=== PATIENT | female | born 1930 | race Caucasian/White ===

== ENCOUNTER 2017-10-19 11:11 | Inpatient (IN) | payer OTHER, MEDICAID ==
[2017-10-19] MEDS: PERCOCET 5MG/325MG TAB PO ×3 (12:09→23:39)
[2017-10-19] MEDS: MORPHINE 2 MG/ML 1ML SYRINGE IV ×4 (13:24→23:15)
[2017-10-19] MEDS: ONDANSETRON 4MG/2ML VIAL (J2405) IV (13:24)
[2017-10-19] MEDS: NS 1,000 ML IV (13:24)
[2017-10-19 13:41] LABS: HEMATOCRIT 50.1 % (36.0-47.0); HEMOGLOBIN 16.9 g/dl (12.0-16.0); MEAN CORPUSCULAR HEMOGLOBIN 31.3 pg (27.0-33.0); MEAN CORPUSCULAR HGB CONC 33.7 g/dl (32.0-36.5); MEAN CORPUSCULAR VOLUME 92.8 fl (80.0-96.0); PLATELET COUNT, AUTOMATED 201 10^3/uL (150-450); RED CELL DISTRIBUTION WIDTH 12.1 % (11.5-14.5); WHITE BLOOD COUNT 14.5 10^3/uL (4.0-10.0)
[2017-10-19 13:54] LABS: INR 1.02; PROTHROMBIN TIME 13.5 SECONDS (12.4-14.5)
[2017-10-19 14:10] LABS: ALBUMIN 4.5 GM/DL (3.2-5.2); ALBUMIN/GLOBULIN RATIO 1.45 (1.00-1.93); ALKALINE PHOSPHATASE 69 U/L (45-117); ALT/SGPT 23 U/L (12-78); ANION GAP 7 MEQ/L (8-16); AST/SGOT 23 U/L (7-37); BILIRUBIN,TOTAL 0.5 MG/DL (0.2-1.0); BLOOD UREA NITROGEN 14 MG/DL (7-18); CALCIUM LEVEL 10.2 MG/DL (8.8-10.2); CARBON DIOXIDE LEVEL 30 MEQ/L (21-32); CHLORIDE LEVEL 103 MEQ/L (98-107); CREATININE FOR GFR 0.82 MG/DL (0.55-1.02); GLOMERULAR FILTRATION RATE > 60.0 (>32); GLUCOSE, FASTING 114 MG/DL (70-100); POTASSIUM SERUM 3.9 MEQ/L (3.5-5.1); SODIUM LEVEL 140 MEQ/L (136-145); TOTAL PROTEIN 7.6 GM/DL (6.4-8.2)
[2017-10-19] MEDS ORDERED: BISACODYL 10 MG SUPP PR (15:00)
[2017-10-19] MEDS ORDERED: ONDANSETRON 4MG/2ML VIAL (J2405) IV (15:00)
[2017-10-19] MEDS: D5W/0.9% SODIUM CHLORIDE 1,000 ML IV (16:15)
[2017-10-19] MEDS: SENOKOT S TAB PO (21:58)
[2017-10-20] MEDS: MORPHINE 2 MG/ML 1ML SYRINGE IV (01:17)
[2017-10-20] MEDS: D5W/0.9% SODIUM CHLORIDE 1,000 ML IV (03:40)
[2017-10-20] MEDS: PERCOCET 5MG/325MG TAB PO ×4 (03:40→23:56)
[2017-10-20] MEDS: CLINDAMYCIN 600 MG in APPROPRIATE DILUENT 1 EA IV (07:30)
[2017-10-20] MEDS: SENOKOT S TAB PO ×2 (08:00→21:00)
[2017-10-20] MEDS ORDERED: CLINDAMYCIN 600 MG in APPROPRIATE DILUENT 1 EA IV (08:00)
[2017-10-20 08:36] LABS: HEMATOCRIT 44.4 % (36.0-47.0); MEAN CORPUSCULAR HEMOGLOBIN 31.1 pg (27.0-33.0); MEAN CORPUSCULAR HGB CONC 32.9 g/dl (32.0-36.5); MEAN CORPUSCULAR VOLUME 94.7 fl (80.0-96.0); PLATELET COUNT, AUTOMATED 153 10^3/uL (150-450); RED BLOOD COUNT 4.69 10^6/uL (4.00-5.40); RED CELL DISTRIBUTION WIDTH 12.4 % (11.5-14.5); WHITE BLOOD COUNT 9.2 10^3/uL (4.0-10.0)
[2017-10-20 08:54] LABS: HEMOGLOBIN 14.6 g/dl (12.0-16.0)
[2017-10-20 08:56] LABS: ANION GAP 5 MEQ/L (8-16); BLOOD UREA NITROGEN 12 MG/DL (7-18); CALCIUM LEVEL 8.2 MG/DL (8.8-10.2); CARBON DIOXIDE LEVEL 30 MEQ/L (21-32); CHLORIDE LEVEL 106 MEQ/L (98-107); CREATININE FOR GFR 0.72 MG/DL (0.55-1.02); GLOMERULAR FILTRATION RATE > 60.0 (>32); GLUCOSE, FASTING 146 MG/DL (70-100); MAGNESIUM LEVEL 1.5 MG/DL (1.8-2.4); SODIUM LEVEL 141 MEQ/L (136-145)
[2017-10-20] MEDS: MAG SULF 1GM/100ML (MAG RUN) 1 GM in APPROPRIATE DILUENT 1 EA IV ×3 (10:25→12:24)
[2017-10-20] MEDS ORDERED: ONDANSETRON 4MG/2ML VIAL (J2405) As Ordered (15:29)
[2017-10-20] MEDS ORDERED: PROPOFOL 200 MG/20 ML VIAL As Ordered (15:29)
[2017-10-20] MEDS ORDERED: KETOROLAC 60 MG/2 ML VIAL (J1885) As Ordered (15:29)
[2017-10-20] MEDS ORDERED: dexameTHASONE 4 MG/ML 1ML VIAL (J1100) As Ordered (15:29)
[2017-10-20] MEDS ORDERED: fentaNYL 100 MCG/2 ML INJECTION (J3010) As Ordered ×2 (15:29→21:15)
[2017-10-20] MEDS ORDERED: MIDAZOLAM INJ 2 MG/2 ML VIAL (J2250) As Ordered (15:29)
[2017-10-20] MEDS ORDERED: LIDOCAINE 2% INJ 100 MG/5 ML SDV (FOR ANES.) As Ordered (15:29)
[2017-10-20] MEDS ORDERED: PHENYLEPHRINE INJ 10MG/ML VIAL (J2370) As Ordered (15:30)
[2017-10-20] MEDS ORDERED: PHENYLephrine HCL 500 MCG/5 ML (100MCG/ML) SYRINGE (J2370) As Ordered ×2 (15:30→19:34)
[2017-10-20] MEDS: ceFAZolin 2 GM/D5W 50 ML IV BAG (J0690 PER 500MG) As Ordered (16:50)
[2017-10-20] MEDS: ceFAZolin 1GM INJ (J0690 PER 500MG) As Ordered (17:01)
[2017-10-20] MEDS: EPINEPHrine INJ 1 MG/ML 1ML AMP As Ordered (17:33)
[2017-10-20] MEDS: LR 1,000 ML IV ×2 (20:52→23:57)
[2017-10-20] MEDS: fentaNYL 100 MCG/2 ML INJECTION (J3010) IV ×3 (21:15→21:25)
[2017-10-20] MEDS ORDERED: FLEET ENEMA PR (21:30)
[2017-10-20] MEDS ORDERED: ONDANSETRON 4MG/2ML VIAL (J2405) IV (21:30)
[2017-10-20] MEDS ORDERED: PERCOCET 5MG/325MG TAB PO (21:30)
[2017-10-21] MEDS: PERCOCET 5MG/325MG TAB PO ×4 (03:51→21:32)
[2017-10-21 06:50] LABS: MEAN CORPUSCULAR HEMOGLOBIN 31.6 pg (27.0-33.0); MEAN CORPUSCULAR HGB CONC 33.2 g/dl (32.0-36.5); MEAN CORPUSCULAR VOLUME 95.1 fl (80.0-96.0); PLATELET COUNT, AUTOMATED 120 10^3/uL (150-450); RED BLOOD COUNT 3.89 10^6/uL (4.00-5.40); RED CELL DISTRIBUTION WIDTH 12.2 % (11.5-14.5); WHITE BLOOD COUNT 10.7 10^3/uL (4.0-10.0)
[2017-10-21 06:53] LABS: HEMOGLOBIN 12.3 g/dl (12.0-16.0)
[2017-10-21 07:15] LABS: ANION GAP 4 MEQ/L (8-16); BLOOD UREA NITROGEN 10 MG/DL (7-18); CARBON DIOXIDE LEVEL 30 MEQ/L (21-32); CHLORIDE LEVEL 105 MEQ/L (98-107); GLOMERULAR FILTRATION RATE > 60.0 (>32); GLUCOSE, FASTING 145 MG/DL (70-100); MAGNESIUM LEVEL 1.9 MG/DL (1.8-2.4); POTASSIUM SERUM 4.1 MEQ/L (3.5-5.1); SODIUM LEVEL 139 MEQ/L (136-145)
[2017-10-21] MEDS: LR 1,000 ML IV (08:37)
[2017-10-21] MEDS: MIRALAX *UNIT DOSE* 17GM PACKET PO (09:00)
[2017-10-21] MEDS: ENOXAPARIN 40 MG/0.4 ML SYRINGE (J1650) SC (09:18)
[2017-10-21] MEDS: MOM 30ML SUSPENSION UDC PO (09:18)
[2017-10-21] MEDS: SENOKOT S TAB PO ×2 (09:18→21:31)
[2017-10-21] MEDS: NS 1,000 ML IV (18:43)
[2017-10-22] MEDS: PERCOCET 5MG/325MG TAB PO ×3 (03:56→17:24)
[2017-10-22 07:07] LABS: HEMATOCRIT 31.3 % (36.0-47.0); MEAN CORPUSCULAR HEMOGLOBIN 31.1 pg (27.0-33.0); MEAN CORPUSCULAR HGB CONC 32.3 g/dl (32.0-36.5); MEAN CORPUSCULAR VOLUME 96.3 fl (80.0-96.0); PLATELET COUNT, AUTOMATED 122 10^3/uL (150-450); RED BLOOD COUNT 3.25 10^6/uL (4.00-5.40); RED CELL DISTRIBUTION WIDTH 12.3 % (11.5-14.5); WHITE BLOOD COUNT 8.9 10^3/uL (4.0-10.0)
[2017-10-22 07:09] LABS: HEMOGLOBIN 10.1 g/dl (12.0-16.0)
[2017-10-22 07:22] LABS: ANION GAP 3 MEQ/L (8-16); BLOOD UREA NITROGEN 11 MG/DL (7-18); CARBON DIOXIDE LEVEL 32 MEQ/L (21-32); CHLORIDE LEVEL 104 MEQ/L (98-107); CREATININE FOR GFR 0.57 MG/DL (0.55-1.02); GLOMERULAR FILTRATION RATE > 60.0 (>32); GLUCOSE, FASTING 108 MG/DL (70-100); MAGNESIUM LEVEL 1.7 MG/DL (1.8-2.4); POTASSIUM SERUM 3.9 MEQ/L (3.5-5.1); SODIUM LEVEL 139 MEQ/L (136-145)
[2017-10-22] MEDS: SENOKOT S TAB PO ×2 (08:33→20:58)
[2017-10-22] MEDS: MIRALAX *UNIT DOSE* 17GM PACKET PO (08:33)
[2017-10-22] MEDS: MOM 30ML SUSPENSION UDC PO (08:33)
[2017-10-22] MEDS: MAG SULF 1GM/100ML (MAG RUN) 1 GM in APPROPRIATE DILUENT 1 EA IV (08:33)
[2017-10-22] MEDS: TAMSULOSIN 0.4 MG CAP PO (12:29)
[2017-10-22] MEDS: ENOXAPARIN 40 MG/0.4 ML SYRINGE (J1650) SC (12:30)
[2017-10-23] MEDS: PERCOCET 5MG/325MG TAB PO ×3 (02:59→21:53)
[2017-10-23 05:56] LABS: HEMATOCRIT 28.4 % (36.0-47.0); HEMOGLOBIN 9.2 g/dl (12.0-16.0); MEAN CORPUSCULAR HEMOGLOBIN 31.1 pg (27.0-33.0); MEAN CORPUSCULAR HGB CONC 32.4 g/dl (32.0-36.5); MEAN CORPUSCULAR VOLUME 95.9 fl (80.0-96.0); PLATELET COUNT, AUTOMATED 141 10^3/uL (150-450); RED BLOOD COUNT 2.96 10^6/uL (4.00-5.40); RED CELL DISTRIBUTION WIDTH 12.3 % (11.5-14.5); WHITE BLOOD COUNT 7.6 10^3/uL (4.0-10.0)
[2017-10-23 06:20] LABS: ANION GAP 6 MEQ/L (8-16); BLOOD UREA NITROGEN 11 MG/DL (7-18); CALCIUM LEVEL 7.8 MG/DL (8.8-10.2); CARBON DIOXIDE LEVEL 30 MEQ/L (21-32); CHLORIDE LEVEL 103 MEQ/L (98-107); CREATININE FOR GFR 0.49 MG/DL (0.55-1.02); GLOMERULAR FILTRATION RATE > 60.0 (>32); GLUCOSE, FASTING 103 MG/DL (70-100); POTASSIUM SERUM 3.8 MEQ/L (3.5-5.1); SODIUM LEVEL 139 MEQ/L (136-145)
[2017-10-23] MEDS: TAMSULOSIN 0.4 MG CAP PO (09:16)
[2017-10-23] MEDS: MIRALAX *UNIT DOSE* 17GM PACKET PO (09:16)
[2017-10-23] MEDS: SENOKOT S TAB PO ×2 (09:16→19:07)
[2017-10-23] MEDS: MOM 30ML SUSPENSION UDC PO (09:16)
[2017-10-23] MEDS: ENOXAPARIN 40 MG/0.4 ML SYRINGE (J1650) SC (09:17)
[2017-10-24 05:57] LABS: HEMATOCRIT 28.9 % (36.0-47.0); HEMOGLOBIN 9.5 g/dl (12.0-16.0); MEAN CORPUSCULAR HEMOGLOBIN 31.5 pg (27.0-33.0); MEAN CORPUSCULAR HGB CONC 32.9 g/dl (32.0-36.5); MEAN CORPUSCULAR VOLUME 95.7 fl (80.0-96.0); PLATELET COUNT, AUTOMATED 170 10^3/uL (150-450); RED BLOOD COUNT 3.02 10^6/uL (4.00-5.40); RED CELL DISTRIBUTION WIDTH 12.4 % (11.5-14.5); WHITE BLOOD COUNT 6.7 10^3/uL (4.0-10.0)
[2017-10-24 06:11] LABS: ANION GAP 5 MEQ/L (8-16); BLOOD UREA NITROGEN 12 MG/DL (7-18); CALCIUM LEVEL 8.1 MG/DL (8.8-10.2); CARBON DIOXIDE LEVEL 33 MEQ/L (21-32); CHLORIDE LEVEL 105 MEQ/L (98-107); CREATININE FOR GFR 0.51 MG/DL (0.55-1.02); GLOMERULAR FILTRATION RATE > 60.0 (>32); GLUCOSE, FASTING 105 MG/DL (70-100); POTASSIUM SERUM 3.7 MEQ/L (3.5-5.1); SODIUM LEVEL 143 MEQ/L (136-145)
[2017-10-24] MEDS: MOM 30ML SUSPENSION UDC PO (08:24)
[2017-10-24] MEDS: MIRALAX *UNIT DOSE* 17GM PACKET PO (08:25)
[2017-10-24] MEDS: TAMSULOSIN 0.4 MG CAP PO (08:30)
[2017-10-24] MEDS: SENOKOT S TAB PO ×2 (08:30→21:00)
[2017-10-24] MEDS: PERCOCET 5MG/325MG TAB PO ×3 (08:30→20:20)
[2017-10-24] MEDS: ENOXAPARIN 40 MG/0.4 ML SYRINGE (J1650) SC (08:31)
[2017-10-24] MEDS: guaiFENesin ER 600 MG TAB PO ×2 (09:00→20:18)
[2017-10-25] MEDS: PERCOCET 5MG/325MG TAB PO ×3 (05:25→16:57)
[2017-10-25 08:31] LABS: HEMATOCRIT 29.5 % (36.0-47.0); HEMOGLOBIN 9.9 g/dl (12.0-16.0); MEAN CORPUSCULAR HEMOGLOBIN 31.4 pg (27.0-33.0); MEAN CORPUSCULAR HGB CONC 33.6 g/dl (32.0-36.5); MEAN CORPUSCULAR VOLUME 93.7 fl (80.0-96.0); PLATELET COUNT, AUTOMATED 216 10^3/uL (150-450); RED BLOOD COUNT 3.15 10^6/uL (4.00-5.40); RED CELL DISTRIBUTION WIDTH 12.1 % (11.5-14.5); WHITE BLOOD COUNT 5.8 10^3/uL (4.0-10.0)
[2017-10-25 08:45] LABS: ANION GAP 7 MEQ/L (8-16); BLOOD UREA NITROGEN 9 MG/DL (7-18); CALCIUM LEVEL 8.2 MG/DL (8.8-10.2); CARBON DIOXIDE LEVEL 31 MEQ/L (21-32); CHLORIDE LEVEL 102 MEQ/L (98-107); CREATININE FOR GFR 0.37 MG/DL (0.55-1.30); GLOMERULAR FILTRATION RATE > 60.0 (>32); GLUCOSE, FASTING 96 MG/DL (70-100); MAGNESIUM LEVEL 1.8 MG/DL (1.8-2.4); POTASSIUM SERUM 3.7 MEQ/L (3.5-5.1); SODIUM LEVEL 140 MEQ/L (136-145)
[2017-10-25] MEDS: MOM 30ML SUSPENSION UDC PO (09:41)
[2017-10-25] MEDS: ENOXAPARIN 40 MG/0.4 ML SYRINGE (J1650) SC (09:41)
[2017-10-25] MEDS: SENOKOT S TAB PO ×2 (09:42→20:14)
[2017-10-25] MEDS: guaiFENesin ER 600 MG TAB PO ×2 (09:42→20:14)
[2017-10-25] MEDS: TAMSULOSIN 0.4 MG CAP PO (09:42)
[2017-10-25] MEDS: MIRALAX *UNIT DOSE* 17GM PACKET PO (09:42)
[2017-10-26 07:03] LABS: HEMATOCRIT 30.7 % (36.0-47.0); HEMOGLOBIN 10.2 g/dl (12.0-16.0); MEAN CORPUSCULAR HEMOGLOBIN 31.7 pg (27.0-33.0); MEAN CORPUSCULAR HGB CONC 33.2 g/dl (32.0-36.5); MEAN CORPUSCULAR VOLUME 95.3 fl (80.0-96.0); PLATELET COUNT, AUTOMATED 237 10^3/uL (150-450); RED BLOOD COUNT 3.22 10^6/uL (4.00-5.40); RED CELL DISTRIBUTION WIDTH 12.3 % (11.5-14.5); WHITE BLOOD COUNT 5.8 10^3/uL (4.0-10.0)
[2017-10-26 07:15] LABS: ANION GAP 5 MEQ/L (8-16); BLOOD UREA NITROGEN 7 MG/DL (7-18); CALCIUM LEVEL 8.4 MG/DL (8.8-10.2); CARBON DIOXIDE LEVEL 33 MEQ/L (21-32); CHLORIDE LEVEL 102 MEQ/L (98-107); CREATININE FOR GFR 0.46 MG/DL (0.55-1.30); GLOMERULAR FILTRATION RATE > 60.0 (>32); GLUCOSE, FASTING 102 MG/DL (70-100); MAGNESIUM LEVEL 1.8 MG/DL (1.8-2.4); POTASSIUM SERUM 3.9 MEQ/L (3.5-5.1); SODIUM LEVEL 140 MEQ/L (136-145)
[2017-10-26] MEDS: PERCOCET 5MG/325MG TAB PO ×2 (08:10→13:50)
[2017-10-26] MEDS: MOM 30ML SUSPENSION UDC PO (09:00)
[2017-10-26] MEDS: MIRALAX *UNIT DOSE* 17GM PACKET PO (09:00)
[2017-10-26] MEDS: SENOKOT S TAB PO ×2 (09:00→20:44)
[2017-10-26] MEDS: guaiFENesin ER 600 MG TAB PO ×2 (09:35→20:44)
[2017-10-26] MEDS: TAMSULOSIN 0.4 MG CAP PO (09:35)
[2017-10-26] MEDS: ENOXAPARIN 40 MG/0.4 ML SYRINGE (J1650) SC (09:36)
[2017-10-27] MEDS: PERCOCET 5MG/325MG TAB PO ×3 (03:22→17:49)
[2017-10-27 06:48] LABS: HEMATOCRIT 30.8 % (36.0-47.0); HEMOGLOBIN 10.2 g/dl (12.0-16.0); MEAN CORPUSCULAR HEMOGLOBIN 31.1 pg (27.0-33.0); MEAN CORPUSCULAR HGB CONC 33.1 g/dl (32.0-36.5); MEAN CORPUSCULAR VOLUME 93.9 fl (80.0-96.0); PLATELET COUNT, AUTOMATED 300 10^3/uL (150-450); RED BLOOD COUNT 3.28 10^6/uL (4.00-5.40); RED CELL DISTRIBUTION WIDTH 12.4 % (11.5-14.5); WHITE BLOOD COUNT 7.2 10^3/uL (4.0-10.0)
[2017-10-27 07:10] LABS: ANION GAP 4 MEQ/L (8-16); BLOOD UREA NITROGEN 8 MG/DL (7-18); CALCIUM LEVEL 8.6 MG/DL (8.8-10.2); CARBON DIOXIDE LEVEL 33 MEQ/L (21-32); CHLORIDE LEVEL 103 MEQ/L (98-107); GLOMERULAR FILTRATION RATE > 60.0 (>32); GLUCOSE, FASTING 100 MG/DL (70-100); MAGNESIUM LEVEL 1.8 MG/DL (1.8-2.4); SODIUM LEVEL 140 MEQ/L (136-145)
[2017-10-27] MEDS: SENOKOT S TAB PO ×2 (09:00→19:58)
[2017-10-27] MEDS: MIRALAX *UNIT DOSE* 17GM PACKET PO (09:00)
[2017-10-27] MEDS: MOM 30ML SUSPENSION UDC PO (09:00)
[2017-10-27] MEDS: TAMSULOSIN 0.4 MG CAP PO (09:03)
[2017-10-27] MEDS: guaiFENesin ER 600 MG TAB PO ×2 (09:03→19:58)
[2017-10-27] MEDS: ENOXAPARIN 40 MG/0.4 ML SYRINGE (J1650) SC (09:04)
[2017-10-28] MEDS: PERCOCET 5MG/325MG TAB PO ×3 (01:04→11:59)
[2017-10-28] MEDS: ENOXAPARIN 40 MG/0.4 ML SYRINGE (J1650) SC (08:06)
[2017-10-28] MEDS: TAMSULOSIN 0.4 MG CAP PO (08:07)
[2017-10-28] MEDS: guaiFENesin ER 600 MG TAB PO (08:07)
[2017-10-28] MEDS: MIRALAX *UNIT DOSE* 17GM PACKET PO (08:08)
[2017-10-28] MEDS: MOM 30ML SUSPENSION UDC PO (08:08)
[2017-10-28] MEDS: SENOKOT S TAB PO (08:08)
== END 2017-10-28 12:18 | DRG 470 ==
LOC: M MS5PR 10-20 → M ED 11:11 → M ED INP 14:15
PROC: 0SRR0J9 Replacement of Right Hip Joint, Femoral Surface with Synthetic Substitute, Cemented, Open Approach (ICD-10-PCS; principal; 2017-10-20 16:04)
PROC: 0QQ60ZZ Repair Right Upper Femur, Open Approach (ICD-10-PCS; 2017-10-20 16:04)
DX: S72.011A Unspecified intracapsular fracture of right femur, initial encounter for closed fracture (principal); W18.39XA Other fall on same level, initial encounter; Y92.512 Supermarket, store or market as the place of occurrence of the external cause; S72.121A Displaced fracture of lesser trochanter of right femur, initial encounter for closed fracture; F17.210 Nicotine dependence, cigarettes, uncomplicated; E83.42 Hypomagnesemia; R33.9 Retention of urine, unspecified; Y99.8 Other external cause status; Z79.82 Long term (current) use of aspirin; Z88.0 Allergy status to penicillin

== ENCOUNTER → 2017-11-09 | Outpatient (REF) ==
[2017-11-09 11:24] LABS: HEMATOCRIT 37.1 % (36.0-47.0); HEMOGLOBIN 11.7 g/dl (12.0-16.0); MEAN CORPUSCULAR HEMOGLOBIN 30.9 pg (27.0-33.0); MEAN CORPUSCULAR HGB CONC 31.5 g/dl (32.0-36.5); MEAN CORPUSCULAR VOLUME 97.9 fl (80.0-96.0); PLATELET COUNT, AUTOMATED 419 10^3/uL (150-450); RED BLOOD COUNT 3.79 10^6/uL (4.00-5.40); RED CELL DISTRIBUTION WIDTH 13.6 % (11.5-14.5); WHITE BLOOD COUNT 4.9 10^3/uL (4.0-10.0)
[2017-11-09 11:39] LABS: ANION GAP 8 MEQ/L (8-16); BLOOD UREA NITROGEN 13 MG/DL (7-18); CALCIUM LEVEL 9.5 MG/DL (8.8-10.2); CARBON DIOXIDE LEVEL 31 MEQ/L (21-32); CHLORIDE LEVEL 102 MEQ/L (98-107); CREATININE FOR GFR 0.66 MG/DL (0.55-1.30); GLOMERULAR FILTRATION RATE > 60.0 (>32); GLUCOSE, FASTING 89 MG/DL (70-100); POTASSIUM SERUM 4.6 MEQ/L (3.5-5.1); SODIUM LEVEL 141 MEQ/L (136-145)
== END ==
DX: D62 Acute posthemorrhagic anemia (principal)

== ENCOUNTER 2020-01-08 13:11 | Inpatient (IN) | payer MEDICAID, MEDICARE, OTHER ==
[~2020-01-08] VITALS: Ht 160 cm; Wt 62.0 kg
[2020-01-08] VITALS (18 sets, daily range): BP systolic 90–131; BP diastolic 51–86
[~2020-01-08 13:11] MED LIST: ASPI-255 PO; CALC1CHW PO; FLOM0.4C39 PO; LOVE1INJ SC
[2020-01-08] MEDS ORDERED: BIMA01SOL OS (13:31)
[2020-01-08 13:49] LABS: BASO % 0.2 % (0.0-1.0); EOS % 0.1 % (0.0-3.0); HEMATOCRIT 48.3 % (36.0-47.0); HEMOGLOBIN 15.6 g/dl (12.0-15.5); LYMPH # 0.7 10^3/uL (1.5-5.0); LYMPH % 4.9 % (24.0-44.0); MEAN CORPUSCULAR HGB CONC 32.3 g/dl (32.0-36.5); MEAN CORPUSCULAR VOLUME 95.8 fl (80.0-96.0); MONO # 1.1 10^3/uL (0.0-0.8); MONO % 7.3 % (0.0-5.0); NEUTROPHILS # 13.1 10^3/uL (1.5-8.5); PLATELET COUNT, AUTOMATED 263 10^3/uL (150-450); RED BLOOD COUNT 5.04 10^6/uL (4.00-5.40)
[2020-01-08] MEDS: METOPROLOL 5 MG/5 ML VIAL IV SCH ×3 (13:56→14:15)
[2020-01-08 14:00] LABS: INR 1.17; PROTHROMBIN TIME 14.6 SECONDS (11.8-14.0)
[2020-01-08 14:18] LABS: ALBUMIN 3.9 GM/DL (3.2-5.2); ALT/SGPT 21 U/L (12-78); BILIRUBIN,DIRECT 0.2 MG/DL (0.0-0.2); BILIRUBIN,TOTAL 0.6 MG/DL (0.2-1.0); BLOOD UREA NITROGEN 15 MG/DL (7-18); CALCIUM LEVEL 9.7 MG/DL (8.8-10.2); CARBON DIOXIDE LEVEL 25 MEQ/L (21-32); CHLORIDE LEVEL 103 MEQ/L (98-107); CK-MB VALUE MASS 4.5 NG/ML (<3.6); CPK CREATINE PHOSPHOKINASE 113 U/L (26-192); CREATININE FOR GFR 1.22 MG/DL (0.55-1.30); FREE T4 1.45 NG/DL (0.76-1.46); GLOMERULAR FILTRATION RATE 44.3 (>32); GLUCOSE, FASTING 175 MG/DL (70-100); LIPASE 56 U/L (73-393); MAGNESIUM LEVEL 1.6 MG/DL (1.8-2.4); MB/CK RELATIVE INDEX 3.98 (< OR =4); PHOSPHORUS LEVEL 4.2 MG/DL (2.5-4.9); POTASSIUM SERUM 4.3 MEQ/L (3.5-5.1); SODIUM LEVEL 138 MEQ/L (136-145); TOTAL PROTEIN 7.4 GM/DL (6.4-8.2); TROPONIN I < 0.02 NG/ML (< 0.10)
[2020-01-08] MEDS ORDERED: VITMTA PO (14:40)
[2020-01-08] MEDS ORDERED: CALC500C14 PO (14:40)
[2020-01-08] MEDS ORDERED: LevoFLOXacin IV 750 MG in IV 1 EA IV ONE (15:00)
[2020-01-08] MEDS ORDERED: METOPROLOL TART 25 MG TABLET PO ONE (15:00)
[2020-01-08] MEDS ORDERED: MAGNESIUM OXIDE 400 MG TAB (MAG-OX) PO ONE (15:00)
--- NOTE | 2020-01-08 15:19 | REP ---
REASON: Chest pain. COMPARISON: 10/19/2017 also portable and the only prior. The technique utilized in obtaining the radiograph has magnified the cardiac silhouette and accentuated the interstitial markings. There is cardiomegaly accentuated by technique. Subtle patchy opacities appear to have developed in the left lower lobe with slight left CP angle blunting. The lung haddad are otherwise unchanged and there are chronic changes status quo with chronic central pulmonary vascular engorgement and chronic pulmonary vascular redistribution. There is no change in the osseous structures. IMPRESSION: 1. New left lower lobe opacities. Pneumonia/atelectasis possibly with a small left pleural effusion seen in a limited fashion on this portable exam. 2. Cardiomegaly and other chronic changes as described above. Electronically Signed by Abdi Galvez DO 01/08/2020 03:30 P
[2020-01-08 15:23] LABS: NT-PRO BNP 2984 PG/ML (<450)
[2020-01-08] MEDS ORDERED: ACETAMINOPHEN TAB 650MG DOSE (2X325MG) PO PRN (15:45)
--- NOTE | 2020-01-08 16:39 | HPEPDOC ---
General Date of Admission 01/08/20 Date of Service: Jan 08, 2020 Chief Complaint The patient is a 89-year-old female admitted with a reason for visit of Chest Pain. Source: Patient Exam Limitations: No limitations Timing/Duration: 4-6 hours Severity: Moderate Associated Symptoms: Shortness of breath History of Present Illness Patient is 89 years old F with PMH appendectomy, hip replacement presented to the hospital with increased shortness of breath. Patient stated that for past 1 month patient has been having increased shortness of breath. In emergency room patient was found to have new onset atrial fibrillation with rapid ventricular rate. Dr. Veliz was contacted by phone, he recommended to start beta blockers. Chest x-ray showed left lung lobe opacification. Also patient was found to have leukocytosis of 15. Patient denied fever, chills, nausea, vomiting. Also she stated that she didn't have increased cough or sputum production. Also note patient has a long history of smoking more than 65 years. Home Medications Scheduled Bimatoprost (Lumigan) 0.01% 2.5ML Drops, 1 DROP OS QHS, (Reported) Calcium Carbonate (Calcium) 500 Mg Tab.chew, 1 CHW PO BID, (Reported) Multivitamins (Thera M Plus Tablet) 1 Each Tablet, 1 TAB PO DAILY, (Reported) TAKES AT NOON Allergies Coded Allergies: Penicillins (Verified Allergy, Intermediate, hives, 01/08/20) Past Medical History Medical History Hip replacement Surgical History Cataract surgeries of both eyes, appendectomy in high school, two sections, tonsillectomy. Family History I personally reviewed family history and found not pertinent Social History * Smoker: former Smoker Alcohol: Denies Drugs: denies A-FIB/CHADSVASC A-FIB History Current/History of A-Fib/PAF?: Yes Current PO Anticoag Therapy: Yes Review of Systems Constitutional: Denies: Chills, Fever Eyes: Denies: Pain, Vision change ENT: Denies: Head Aches Skin: Denies: Rash, Lesions Pulmonary: Reports: Dyspnea Cardiovascular: Reports: Palpitations; Denies: Chest Pain Gastrointestinal: Denies: Nausea, Vomiting Genitourinary: Denies: Dysuria, Frequency Hematologic: Denies: Bruising, Bleeding Excessively Endocrine: Denies: Polydipsia, Polyphagia Musculoskeletal: Denies: Neck Pain Neurological: Denies: Weakness Psych: Reports: Mood Normal Physical Examination General Exam: Positive: Alert, Cooperative Eye Exam: Positive: PERRLA ENT Exam: Positive: Atraumatic Neck Exam: Positive: Supple; Negative: JVD Chest Exam: Positive: Clear to auscultation Heart Exam: Positive: Tachycardic; Negative: Rate Normal Telemetry: Positive: Atrial fibrillation Abdomen Exam: Positive: Normal bowel sounds Extremity Exam: Negative: Clubbing Skin Exam: Positive: Nl turgor and temperature Neuro Exam: Positive: Normal Gait Psych Exam: Positive: Mental status NL Vital Signs Vital Signs Date Time Temp Pulse Resp B/P (MAP) Pulse Ox O2 Delivery O2 Flow Rate FiO2 01/08/20 15:10 153 97/58 01/08/20 14:47 20 95 Nasal Cannula 2.0 01/08/20 13:27 99.6 Laboratory Data Labs 24H Laboratory Tests 2 01/08/20 13:40: Immature Granulocyte % (Auto) 0.5, Neutrophils (%) (Auto) 87.0H, Lymphocytes (%) (Auto) 4.9L, Monocytes (%) (Auto) 7.3H, Eosinophils (%) (Auto) 0.1, Basophils (%) (Auto) 0.2, Neutrophils # (Auto) 13.1H, Lymphocytes # (Auto) 0.7L, Monocytes # (Auto) 1.1H, Eosinophils # (Auto) 0.0, Basophils # (Auto) 0.0, Nucleated Red Blood Cells % (auto) 0.0, Prothrombin Time 14.6H, Prothromb Time International Ratio 1.17, Anion Gap 10, Glomerular Filtration Rate 44.3, Calcium Level 9.7, Phosphorus Level 4.2, Magnesium Level 1.6L, Total Bilirubin 0.6, Direct Bilirubin 0.2, Aspartate Amino Transf (AST/SGOT) 22, Alanine Aminotransferase (ALT/SGPT) 21, Alkaline Phosphatase 97, Total Creatine Kinase 113, Creatine Kinase MB 4.5H, Creatine Kinase MB Relative Index 3.98, Troponin I < 0.02, WL-Xli-T-Type Natriuretic Peptide 2984H, Total Protein 7.4, Albumin 3.9, Albumin/Globulin Ratio 1.11, Lipase 56L, Thyroid Stimulating Hormone (TSH) 1.330, Free Thyroxine 1.45 01/08/20 13:52: POC Glucose (Misc Panel) 181H, POC Sodium (Misc Panel) 140, POC Potassium (Misc Panel) 4.4, POC Chloride (Misc Panel) 102, POC Total CO2 (Misc Panel) 24.0, POC Blood Urea Nitrogen (Misc Panel 15, POC Ionized Calcium (Misc Panel) 4.6, POC Creatinine (Misc Panel) 0.9, POC Hematocrit (Misc Panel) 51.0 CBC/BMP Laboratory Tests 01/08/20 13:40 Microbiology Microbiology 01/08/20 Blood Culture, Received Pending 01/08/20 Respiratory Virus Panel (PCR) (NUHA), Received Pending 01/08/20 Blood Culture, Received Pending Assessment/Plan Patient is 89 years old F with PMH appendectomy, hip replacement presented to the hospital with increased shortness of breath. Patient stated that for past 1 month patient has been having increased shortness of breath. In emergency room patient was found to have new onset atrial fibrillation with rapid ventricular rate. Dr. Veliz was contacted by phone, he recommended to start beta blockers. Chest x-ray showed left lung lobe opacification. Also patient was found to have leukocytosis of 15. Patient denied fever, chills, nausea, vomiting. Also she stated that she didn't have increased cough or sputum production. Also note patient has a long history of smoking more than 65 years. Problems (1) Sepsis Status: Acute Problem Text: Patient was tachycardic, has leukocytosis of 15 Most likely secondary to respiratory infection Respiratory panel pending Blood culture pending Levofloxacin 500 mg IV empirically (2) Atrial fibrillation with rapid ventricular response Status: Acute Problem Text: New onset Metoprolol tartrate 25 mg twice a day Lopressor when necessary Oral targeted anticoagulation Echo (3) Pneumonia Status: Acute Problem Text: there is q CAP, pt has clear lung on auscultation, and very mild opacities on XR Patient has a long history of smoking She has a leukocytosis, chest x-ray showed new left lower lobe opacities. P neumonia/atelectasis possibly with a small left pleural effusion seen in a limited fashion on this portable exam. Levofloxacin Plan / VTE VTE Prophylaxis Ordered?: Yes MAURICIO BUSH DO Jan 08, 2020 16:39
[2020-01-08] MEDS ORDERED: MAG SULF 1GM/100ML (MAG RUN) 1 GM in IV 1 EA IV ONE (17:00)
[2020-01-08] MEDS: METOPROLOL 5 MG/5 ML VIAL IV PRN ×3 (17:17→19:23)
[2020-01-08] MEDS ORDERED: RIVAROXABAN 10 MG TAB (XARELTO) PO SCH (18:00)
--- NOTE | 2020-01-08 18:08 | REP ---
CHEST, TWO VIEWS: Two views of the chest are performed and compared to prior studies earlier today as well as 10/19/2017. There is patchy infiltrate in the left lung base with a small left effusions. There may be some mild right basilar infiltrate. This is superimposed with bilateral diffuse interstitial fibrotic change. There is mild cardiomegaly. There is calcification of the thoracic aorta. Mediastinal silhouette is unchanged. There are degenerative changes of the spine. IMPRESSION: Cardiomegaly. Left lower lobe infiltrate and small left effusion. There may be some mild acute infiltrate in the medial right base. Electronically Signed by Huey Swanson MD 01/08/2020 07:52 P
[2020-01-08] MEDS: METOPROLOL TART 25 MG TABLET PO SCH (20:23)
[2020-01-09] VITALS (32 sets, daily range): BP systolic 95–157; BP diastolic 52–86
[2020-01-09] MEDS: METOPROLOL 5 MG/5 ML VIAL IV PRN (03:05)
[2020-01-09] MEDS ORDERED: DIGOXIN INJ 0.5 MG/2 ML AMP (J1160) IV ONE (03:15)
[2020-01-09] MEDS ORDERED: DIGOXIN 0.125 MG TAB PO ONE (04:45)
[2020-01-09 05:02] LABS: HEMATOCRIT 43.7 % (36.0-47.0); HEMOGLOBIN 14.1 g/dl (12.0-15.5); MEAN CORPUSCULAR HGB CONC 32.3 g/dl (32.0-36.5); PLATELET COUNT, AUTOMATED 229 10^3/uL (150-450); RED BLOOD COUNT 4.55 10^6/uL (4.00-5.40); WHITE BLOOD COUNT 9.2 10^3/uL (4.0-10.0)
[2020-01-09 05:46] LABS: CREATININE FOR GFR 1.09 MG/DL (0.55-1.30); GLOMERULAR FILTRATION RATE 50.4 (>32); MAGNESIUM LEVEL 1.8 MG/DL (1.8-2.4); POTASSIUM SERUM 4.2 MEQ/L (3.5-5.1)
[2020-01-09] MEDS ORDERED: diltiaZEM 125 MG in NS 100 ML IV SCH (08:40)
[2020-01-09] MEDS ORDERED: PREVNAR 13 VACCINE SYRINGE (CPT CODE:90670) IM SCH (09:00)
--- NOTE | 2020-01-09 09:10 | ECGEPIP ---
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
[2020-01-09] MEDS: METOPROLOL TART 25 MG TABLET PO SCH ×3 (09:25→23:45)
[2020-01-09] MEDS: diltiaZEM 125 MG in NS 100 ML IV SCH ×2 (10:00→11:31)
--- NOTE | 2020-01-09 12:56 | IPNPDOC ---
Text Note Date of Service The patient was seen on 01/09/20. NOTE Subjective: Patient continues to have atrial fibrillation with rapid ventricular rate, poorly controlled with beta blockers and digoxin. Also patient has increased oxygen requirements required 2 L of oxygen PHYSICAL EXAMINATION: VITAL SIGNS: Please see below. GENERAL APPEARANCE: NAD HEENT: PERRLA, EOMI RESPIRATORY: Diminished lung sounds bilaterally CARDIOVASCULAR: S1-S2, irregularly irregular with heart rate around 150 ABDOMEN: Nontender nondistended EXTREMITIES: No swelling NEUROLOGICAL: Cranial nerves from 2-12 intact Assessment/Plan Assessment/Plan Patient is 89 years old F with PMH appendectomy, hip replacement presented to the hospital with increased shortness of breath. Patient stated that for past 1 month patient has been having increased shortness of breath. In emergency room patient was found to have new onset atrial fibrillation with rapid ventricular rate. Dr. Veliz was contacted by phone, he recommended to start beta blockers. Chest x-ray showed left lung lobe opacification. Also patient was found to have leukocytosis of 15. Patient denied fever, chills, nausea, vomiting. Also she stated that she didn't have increased cough or sputum production. Also note patient has a long history of smoking more than 65 years. Problems (1) Sepsis Patient was tachycardic, has leukocytosis of 15, today leukocytosis resolved Most likely secondary to respiratory infection. Chest x-ray in 2 projections positive for left lobe infiltrate Respiratory panel negative Blood culture pending Levofloxacin 500 mg IV empirically for community-acquired pneumonia (2) Atrial fibrillation with rapid ventricular response New onset, poorly controlled with beta blockers and digoxin I started diltiazem drip Oral targeted anticoagulation Echo pending (3) Pneumonia Chest x-ray in 2 projections showed left lobe infiltrate, patient had leukocytosis on admission Patient has a long history of smoking I started levofloxacin IV Plan / VTE VTE Prophylaxis Ordered?: Yes VS,Fishbone, I+O VS, Fishbone, I+O Laboratory Tests 01/08/20 13:40 01/09/20 04:41 Vital Signs Date Time Temp Pulse Resp B/P (MAP) Pulse Ox O2 Delivery O2 Flow Rate FiO2 01/09/20 12:00 151 26 107/75 (86) 98 Nasal Cannula 2.0 01/09/20 11:30 98.4 I&O- Last 24 Hours up to 6 AM 01/09/20 06:00 Intake Total 350 ml Output Total 75 ml Balance 275 ml MAURICIO BUSH DO Jan 09, 2020 12:56
[2020-01-09 13:22] LABS: HEMATOCRIT 40.8 % (36.0-47.0); HEMOGLOBIN 13.5 g/dl (12.0-15.5); MEAN CORPUSCULAR HEMOGLOBIN 32.1 pg (27.0-33.0); MEAN CORPUSCULAR HGB CONC 33.1 g/dl (32.0-36.5); MEAN CORPUSCULAR VOLUME 96.9 fl (80.0-96.0); PLATELET COUNT, AUTOMATED 211 10^3/uL (150-450); RED BLOOD COUNT 4.21 10^6/uL (4.00-5.40); WHITE BLOOD COUNT 9.7 10^3/uL (4.0-10.0)
[2020-01-09] MEDS ORDERED: MAG SULF 1GM/100ML (MAG RUN) 1 GM in IV 1 EA IV ONE (14:00)
[2020-01-09] MEDS ORDERED: LevoFLOXacin IV 500 MG in IV 1 EA IV SCH (15:00)
[2020-01-09] MEDS: DIGOXIN 0.125 MG TAB PO SCH (18:23)
--- NOTE | 2020-01-09 18:24 | CR ---
DATE OF CONSULTATION: 01/09/2020 REFERRING PHYSICIAN: Dr. Yandel Sims INDICATION: Atrial fibrillation with rapid ventricular response. HISTORY OF PRESENT ILLNESS: Mrs. Hansen is previously unknown to me. She is a very pleasant 89-year-old female who really has not been seen by physicians on a regular basis for decades. She presented to our emergency room after approximately a 4-week history of gradually progressive dyspnea that reached the point of essentially orthopnea. On presentation, she was found to be in atrial fibrillation with rapid ventricular response and heart rate reaching over 180 beats per minute. Underlying QRS complex was narrow. She was given initially metoprolol in a dose of 25 mg orally, and after few intravenous (IV) doses with minimal effect on the heart rate. Consequently she was admitted for further observation. Since her admission, there have been numerous additional medications given to her that included Cardizem both IV in form of bolus and then drip and also extended-release oral medication, together with more doses of metoprolol and digoxin. So far she got 0.375 mg of digoxin. I was asked to see her because her heart rate still is quite tachycardiac. At bedside, the patient tells me that she is feeling overall much better. She feels much less short of breath, even though she has not done any ambulation as yet. She denies any chest pain, and she denies any awareness of tachycardia or palpitations. She was quite active until about a month ago for her age. She was taking care of herself, cleaning her house, shopping, and driving without difficulty. She never had any cardiac problems to the best of her understanding and recollection. PAST MEDICAL HISTORY: Essentially negative with the exception of pneumonia years ago. SURGICAL HISTORY: 1. Appendectomy. 2. Cataract surgery. 3. section times two. 4. Tonsillectomy. 5. Hip replacement. No outpatient medications. She reports intolerance of PENICILLIN, which gives her hives. SOCIAL HISTORY: She is a of more than 10 years. She used to smoke for approximately 60 years but quit about a year ago completely, and prior to that she smoked very lightly 4 or 5 years. No significant alcohol use. No drugs. 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 FAMILY HISTORY: Her mother in her 60s of some form of abdominal infection. Her father lived into his 90s and of old age. She has a brother who has cardiac problems, apparently brought on by alcoholism. She denies any history of coronary artery disease or congestive heart failure in early age. REVIEW OF SYSTEMS: She denies any recent fever, chills, nausea, or vomiting. She did have what she thought was an upper respiratory infection or type of sinusitis for a few weeks before she started feeling short of breath. No chest pain. No syncope, near-syncope. No peripheral edema. No bleeding problems. No diarrhea, nausea, or vomiting. The rest for review of systems is as per history of present illness (HPI) or negative. PHYSICAL EXAMINATION: Mrs. Hansen is a delightful elderly woman. She appears younger than her age. She is very alert, oriented, and appropriate. The last set of documented vital signs, blood pressure was 138/61. Heart rate fluctuated widely from about 110-150. Saturation is 99% on 2 liters oxygen by nasal cannula. Her weight was recorded 63.7 kg. She is certainly alert and oriented and appropriate. Her jugular venous pulse (JVP) is elevated at least 5 or 6 cm above clavicle. Lungs are reasonably clear, even though there are occasional rhonchi. I do not appreciate any wheezing or distinct crackles. Heart exam reveals irregular tachycardia. I cannot appreciate distinct gallop, murmur, or rub. Abdomen is soft without tenderness. Extremities are free of edema. Peripheral pulses are palpable in all four extremities and are of decent quality. LABORATORY: CBC is normal. Basic metabolic panel is normal with BUN 18, creatinine 1.1, for calculated GFR 50, and glucose 139, magnesium is 1.8. TSH is 1.3. Cardiac enzymes were negative and N-terminal pro BNP was about 3000. INR is 1.2. ECG reveals atrial fibrillation with rapid ventricular response and narrow QRS complex. Chest x-ray Reveals mild cardiomegaly, atherosclerosis of thoracic aorta, and probably small pleural effusions, more apparent on the left side. Possible small infiltrate. ASSESSMENT AND PLAN: Mrs. Hansen is an a 89-year-old female who presents with persistent atrial fibrillation with rapid ventricular response of unclear duration. She likely has underlying chronic obstructive pulmonary disease (COPD), considering the length and extent of her smoking, but I believe that her dyspnea is principally related to congestive heart failure. We are not sure what is her ejection fraction, but I have to assume that she has had tachycardia for several weeks, so possibility tachycardia-induced cardiomyopathy is real. Consequently, I am not keen on continuation of Cardizem. I am going to stop the extended-release preparation and will leave her IV dose currently intact, but as her heart rate starts slowing down, I recommend to discontinue the infusion. I am going to increase the dose of metoprolol to 25 mg every 6 hours with holding parameters for low blood pressure and bradycardia. I am going to continue loading her with digoxin. So far, she received only 0.375 mg, so it would not be expected to have any therapeutic effect. I am going to give her another 0.5 mg in two separate doses 8 hours apart and will obtain digoxin level tomorrow. I am hopeful that with these interventions, we will accomplish gradual rate control. The dose of metoprolol can be progressively increased further depending on response. An echocardiogram will be obtained likely tomorrow, and once we know more about her ejection fraction we can make further enhancements accordingly. I talked to the patient about possibility of sick sinus syndrome, even though so far there is no evidence it. As far as the anticoagulation is concerned, she was started on rivaroxaban 10 mg daily, which is subtherapeutic dose. I would prefer that if she gets Lovenox until we know what her rate will be, it will give us better flexibility in dosing, and in case she should need a pacemaker we would not have to wait as long for the effect of medication to wean off. I will follow the patient with you. Thank you for this consultation. AKUA
[2020-01-09] MEDS: ENOXAPARIN 60MG/0.6ML SYRINGE (J1650 PER 10MG) SC SCH (20:39)
[2020-01-10] VITALS (9 sets, daily range): BP systolic 102–125; BP diastolic 55–89
[2020-01-10] MEDS: DIGOXIN 0.125 MG TAB PO SCH (01:08)
[2020-01-10 05:13] LABS: BASO % 0.4 % (0.0-1.0); EOS # 0.2 10^3/uL (0.0-0.5); EOS % 1.9 % (0.0-3.0); HEMATOCRIT 45.4 % (36.0-47.0); HEMOGLOBIN 14.2 g/dl (12.0-15.5); LYMPH % 11.9 % (24.0-44.0); MEAN CORPUSCULAR HEMOGLOBIN 30.5 pg (27.0-33.0); MEAN CORPUSCULAR HGB CONC 31.3 g/dl (32.0-36.5); MEAN CORPUSCULAR VOLUME 97.4 fl (80.0-96.0); MONO # 0.9 10^3/uL (0.0-0.8); MONO % 10.8 % (0.0-5.0); NEUTROPHILS # 6.3 10^3/uL (1.5-8.5); NEUTROPHILS % 74.4 % (36.0-66.0); PLATELET COUNT, AUTOMATED 208 10^3/uL (150-450); RED BLOOD COUNT 4.66 10^6/uL (4.00-5.40); WHITE BLOOD COUNT 8.4 10^3/uL (4.0-10.0)
[2020-01-10 05:32] LABS: BLOOD UREA NITROGEN 17 MG/DL (7-18); CARBON DIOXIDE LEVEL 26 MEQ/L (21-32); CHLORIDE LEVEL 107 MEQ/L (98-107); CREATININE FOR GFR 0.86 MG/DL (0.55-1.30); GLOMERULAR FILTRATION RATE > 60.0 (>32); GLUCOSE, FASTING 111 MG/DL (70-100); MAGNESIUM LEVEL 1.7 MG/DL (1.8-2.4); POTASSIUM SERUM 4.2 MEQ/L (3.5-5.1); SODIUM LEVEL 139 MEQ/L (136-145)
[2020-01-10] MEDS: METOPROLOL TART 25 MG TABLET PO SCH (05:49)
[2020-01-10] MEDS: ENOXAPARIN 60MG/0.6ML SYRINGE (J1650 PER 10MG) SC SCH ×2 (09:15→20:11)
--- NOTE | 2020-01-10 11:10 | IPNPDOC ---
[facility] Cardiology Progress Note Date of Service/Time The patient was seen on 01/10/20 at 1045. Cardiology Progress Note SUBJECTIVE: Juliana was seen and examined this morning at bedside by cardiology service. She reports no adverse events overnight. She had just been moved late this morning, from the postanesthesia recovery interim bed up to medical surgical floor. Due to this in-house transfer, she was given 2 L supplemental oxygen via nasal cannula to prevent hypoxia. At time of our exam, she endorsed exertional dyspnea that was significantly improved from the previous 4-5 days. She also endorsed a mild intermittent nonproductive cough. She denied any dyspnea at rest, pleuritic chest pain, increased work of breathing, chest pain, chest pressure, palpitations, dizziness, lightheadedness, syncope or near syncope, lower extremity swelling, recent fever, or chills. OBJECTIVE: PHYSICAL EXAMINATION: VITAL SIGNS: Please see below. GENERAL APPEARANCE: Extremely pleasant elderly female lying comfortably upright in bed in no acute distress. Alert and oriented 3. Wearing eyeglasses and nasal cannula and receiving 2 L supplemental oxygen. HEENT: Normocephalic, atraumatic. Anicteric, noninjected sclera. PERRLA. Wearing eyeglasses and nasal cannula and receiving 2 L supplemental oxygen. NECK: Jugular venous pressure continues to be elevated at approximately 5-6 cm superior to the clavicle. LUNGS: Mild bibasilar crackles posteriorly on inspiration with no appreciated wheezes or significant rhonchi. Currently receiving 2 L nasal cannula. Symmetric chest expansion with adequate tidal volume. Speaking full sentences. HEART: Irregularly irregular rhythm with controlled heart rate in the high 80s to low 90s beats per minute. Not currently hooked up to remote telemetry to just being transferred in house. No distinct murmur, gallop or rub is appreciated. ABDOMEN: Soft, nondistended and nontender. EXTREMITIES: Trace to 1+ pitting edema of left lower extremity with slight swelling and no pitting of the right lower extremity. 2+ radial and posterior tibial pulses bilaterally. Less than 2 seconds capillary refill. NEUROLOGICAL: Alert and oriented 3. No focal neurological deficits appreciated. Non-dysarthric speech. Responding appropriate to questions and commands. PSYCHIATRIC: Mood and affect appear appropriate LABORATORY WORK: Please see below. ASSESSMENT AND PLAN: Juliana continues to have symptomatic improvement, remaining in atrial fibrillation with decent rate control. Her exertional dyspnea is significantly improved from the previous few days. Upon review of her records, there are signs she may have possible left ventricular dysfunction. To further assess for this. an echocardiogram has been ordered. In the meantime, we will avoid diltiazem as it is a calcium channel guillermo and we do not want to further stress/compromise the contractility capability of her heart. We have stopped her PO metoprolol 25 mg every 6 hour dosage and switched her to PO 50 mg every 8 hours to further try and maintain a controlled rate and avoid administering digoxin again. To this point, she has received a total of 0.875 mg of digoxin and her measured digoxin level was 1.9. We will hold off on administering any digoxin today and see how the new metoprolol dose works. If by tomorrow, it is still a struggle to control her rate, we may revisit using digoxin again. If we were to re-start the digoxin, it would be at a dose of 1.5 mg. Thank you for involving the cardiology service in the care of Juliana. We will continue to follow her during her inpatient stay. Please feel free to reach out with further questions or concerns regarding Juliana's care. Vital Signs/I&O VS/I&O Vital Signs Date Time Temp Pulse Resp B/P (MAP) Pulse Ox O2 Delivery O2 Flow Rate FiO2 01/10/20 10:51 97.0 136 20 125/82 (96) 95 Nasal Cannula 2.0 I&O- Last 24 Hours up to 6 AM 01/10/20 05:59 Intake Total 492.5 ml Output Total 450 ml Balance 42.5 ml Laboratory Data 24H LABS Laboratory Tests 2 01/09/20 13:12: Nucleated Red Blood Cells % (auto) 0.0 01/10/20 04:51: Nucleated Red Blood Cells % (auto) 0.0, Immature Granulocyte % (Auto) 0.6, Neutrophils (%) (Auto) 74.4H, Lymphocytes (%) (Auto) 11.9L, Monocytes (%) (Auto) 10.8H, Eosinophils (%) (Auto) 1.9, Basophils (%) (Auto) 0.4, Neutrophils # (Auto) 6.3, Lymphocytes # (Auto) 1.0L, Monocytes # (Auto) 0.9H, Eosinophils # (Auto) 0.2, Basophils # (Auto) 0.0, Anion Gap 6L, Glomerular Filtration Rate > 60.0, Calcium Level 9.0, Magnesium Level 1.7L, Digoxin Level 1.9 CBC/BMP Laboratory Tests 01/09/20 13:12 01/10/20 04:51 Microbiology Microbiology 01/09/20 Urine Culture - Final, Complete 01/08/20 Blood Culture - Preliminary, Resulted No growth after 24 hours . All specim... 01/08/20 Respiratory Virus Panel (PCR) (NUHA) - Final, Complete 01/08/20 Blood Culture - Preliminary, Resulted No growth after 24 hours . All specim... RYLAN TAPIA D.O. Jan 10, 2020 11:10
--- NOTE | 2020-01-10 13:02 | ECGEPIP ---
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 Electronically Signed on 01-10-2020 13:01:49 EDT by Mohan Farley
--- NOTE | 2020-01-10 13:47 | IPNPDOC ---
Text Note Date of Service The patient was seen on 01/10/20. NOTE Subjective: Patient continues to have atrial fibrillation with rapid ventricular rate. Patient improved after digoxin and increased dose of beta blockers. Patient stated that her breathing is better today. Also patient has increased oxygen requirements,she required 2 L of oxygen PHYSICAL EXAMINATION: VITAL SIGNS: Please see below. GENERAL APPEARANCE: NAD HEENT: PERRLA, EOMI RESPIRATORY: Diminished lung sounds bilaterally CARDIOVASCULAR: S1-S2, irregularly irregular with heart rate around 150 ABDOMEN: Nontender nondistended EXTREMITIES: No swelling NEUROLOGICAL: Cranial nerves from 2-12 intact Assessment/Plan Patient is 89 years old F with PMH appendectomy, hip replacement presented to the hospital with increased shortness of breath. Patient stated that for past 1 month patient has been having increased shortness of breath. In emergency room patient was found to have new onset atrial fibrillation with rapid ventricular rate. Dr. Veliz was contacted by phone, he recommended to start beta blockers. Chest x-ray showed left lung lobe opacification. Also patient was found to have leukocytosis of 15. Patient denied fever, chills, nausea, vomiting. Also she st ated that she didn't have increased cough or sputum production. Also note patient has a long history of smoking more than 65 years. Problems (1) Sepsis Resolved Patient was tachycardic, has leukocytosis of 15, leukocytosis resolved Most likely secondary to respiratory infection. Chest x-ray in 2 projections positive for left lobe infiltrate Respiratory panel negative Blood culture negative, pro-calcitonin came back today negative I stopped antibiotics (2) Atrial fibrillation with rapid ventricular response New onset Cardiology team started increased dose of metoprolol 50 mg 3 times a day, also patient received digoxin. Digoxin level today 1.9. Digoxin on hold. There is possibility of the patient has sick sinus syndrome and she will need pacemaker Continue Lovenox at therapeutic dose Echo pending (3) Pneumonia Chest x-ray in 2 projections showed left lobe infiltrate, patient had l eukocytosis on admission Patient has a long history of smoking See above Electrolytes imbalance Magnesium replenished today VS,Fishbone, I+O VS, Fishbone, I+O Laboratory Tests 01/10/20 04:51 Vital Signs Date Time Temp Pulse Resp B/P (MAP) Pulse Ox O2 Delivery O2 Flow Rate FiO2 01/10/20 12:05 2.0 01/10/20 10:51 97.0 136 20 125/82 (96) 95 Nasal Cannula I&O- Last 24 Hours up to 6 AM 01/10/20 05:59 Intake Total 492.5 ml Output Total 450 ml Balance 42.5 ml MAURICIO BUSH DO Jan 10, 2020 13:47
[2020-01-10] MEDS ORDERED: MAG SULF 1GM/100ML (MAG RUN) 1 GM in IV 1 EA IV ONE (14:00)
[2020-01-10] MEDS: METOPROLOL TART 50 MG TAB PO SCH ×2 (14:12→21:21)
[2020-01-10] MEDS: METOPROLOL 5 MG/5 ML VIAL IV PRN (17:40)
[2020-01-10] MEDS ORDERED: AMIODARONE HCL 150 MG in IV 1 EA IV STA (17:51)
--- NOTE | 2020-01-10 21:45 | ECHO ---
DATE OF PROCEDURE: 01/10/2020 REFERRING PHYSICIAN: Dr. Dao Sims REASON FOR ECHOCARDIOGRAM: Atrial fibrillation. 2D MEASUREMENTS IVS: 1.3 cm LV: 3.4 cm LVPW: 1.3 cm LA: 3.7 cm Aorta: 4.1 cm IVC: 1.9 cm DOPPLER MEASUREMENTS: Peak velocity across the tricuspid valve: 2.8 m/s Peak velocity across the aortic valve: 0.9 m/s Peak velocity across the LVOT: 0.7 m/s 2D COMMENTS: 1. Normal left ventricular size with mildly increased left ventricular wall thickness but a moderately depressed global left ventricular systolic function. The estimated left ventricular systolic ejection fraction is 40-45%. There was global hypokinesis. At the same time, patient also was tachycardic. 2. Subjectively, the left atrium is mildly enlarged. The right atrium is moderately enlarged. The right ventricle appeared to be mildly enlarged and right ventricular free wall seems to be hypokinetic. 3. The atrial septum appeared to be normal without evidence of defect or shunt. 4. Mildly enlarged aortic root at 4.1 cm. 5. Small pericardial effusion was noted, no evidence of cardiac tamponade. Bilateral pleural effusion was noted. 6. Mildly calcified aortic valve with normal leaflet excursion. Mildly calcified mitral annulus with normal anterior mitral valve leaflet motion. Normal tricuspid valve and pulmonic valve. The proximal pulmonary artery branches were not well visualized. 7. The inferior vena cava appeared to be borderline enlarged. Central venous pressure might be elevated. DOPPLER: It detects mild aortic regurgitation, moderate mitral regurgitation, mild tricuspid regurgitation, and trace pulmonic regurgitation. The calculated pulmonary artery systolic pressure varies between 30 to 40 mmHg. Assessment of the left ventricular diastolic function was limited in view of the tachycardia and underlying atrial fibrillation. IMPRESSION: 1. Moderate global left ventricular systolic dysfunction with mild to moderate global hypokinesis. Assessment of the left ventricular diastolic function was limited as mentioned above. 2. Subjectively, the left atrium appeared to be mildly enlarged. There was mitral annulus calcification with moderate mitral regurgitation. 3. Mild tricuspid regurgitation with mild pulmonary hypertension. Cannot not rule out more severe pulmonary hypertension in view of the dilated right atrium and the right ventricle. 4. There are some features of elevated central venous pressure, the inferior vena cava appeared to be mildly enlarged. 5. A small pericardial effusion was noted, no evidence of cardiac tamponade. Pleural effusions also noted. 6. Dilated aortic root at 4.1 cm. 7. Patient was tachycardic during the test with a maximum heart rate of about 145 beats per minute. MTDD
[2020-01-11] VITALS (10 sets, daily range): BP systolic 92–138; BP diastolic 54–90
[2020-01-11] MEDS: METOPROLOL TART 50 MG TAB PO SCH ×2 (05:28→21:00)
[2020-01-11 06:03] LABS: HEMOGLOBIN 14.1 g/dl (12.0-15.5); MEAN CORPUSCULAR HEMOGLOBIN 30.7 pg (27.0-33.0); MEAN CORPUSCULAR VOLUME 95.7 fl (80.0-96.0); PLATELET COUNT, AUTOMATED 258 10^3/uL (150-450); WHITE BLOOD COUNT 8.4 10^3/uL (4.0-10.0)
[2020-01-11 06:19] LABS: BLOOD UREA NITROGEN 14 MG/DL (7-18); CALCIUM LEVEL 9.2 MG/DL (8.8-10.2); CARBON DIOXIDE LEVEL 27 MEQ/L (21-32); CHLORIDE LEVEL 106 MEQ/L (98-107); CREATININE FOR GFR 0.78 MG/DL (0.55-1.30); GLOMERULAR FILTRATION RATE > 60.0 (>32); GLUCOSE, FASTING 115 MG/DL (70-100); MAGNESIUM LEVEL 1.7 MG/DL (1.8-2.4); SODIUM LEVEL 139 MEQ/L (136-145)
[2020-01-11] MEDS ORDERED: MAG SULF 1GM/100ML (MAG RUN) 1 GM in IV 1 EA IV ONE (07:45)
[2020-01-11] MEDS: ENOXAPARIN 60MG/0.6ML SYRINGE (J1650 PER 10MG) SC SCH (08:25)
[2020-01-11] MEDS: DIGOXIN 0.125 MG TAB PO SCH (08:26)
[2020-01-11] MEDS ORDERED: METOPROLOL TART 50 MG TAB PO ONE ×2 (09:00→17:00)
[2020-01-11] MEDS ORDERED: PREVNAR 13 VACCINE SYRINGE (CPT CODE:90670) IM ONE (09:00)
[2020-01-11] MEDS ORDERED: FUROSEMIDE 20MG/2ML VIAL (J1940) IV ONE (09:00)
--- NOTE | 2020-01-11 10:00 | IPNPDOC ---
[facility] Cardiology Progress Note Date of Service/Time The patient was seen on 01/11/20 at 0755. Cardiology Progress Note SUBJECTIVE: Juliana was seen and examined this morning by the cardiology team while resting comfortably lying upright in bed. She continues to experience exertional dyspnea but reports a daily improvement in her symptoms. She denies any adverse events overnight. At this time, she denies any chest pain, chest pressure, palpita tions, dyspnea at rest, pleuritic chest pain, increased work of breathing, dizziness, lightheadedness, or syncope. She is no longer receiving supplemental oxygen as she had been during our visit yesterday. OBJECTIVE: PHYSICAL EXAMINATION: VITAL SIGNS: Please see below. GENERAL APPEARANCE: Extremely pleasant elderly female lying comfortably upright in bed. In no acute distress. Alert and oriented 3. HEENT: Normocephalic, atraumatic. Anicteric, noninjected sclera. Wearing eyeglasses. NECK: Jugular venous pressure appears to be approximately 4-5 cm superior to the clavicle. LUNGS: Mild bibasilar crackles posteriorly on inspiration similar to those auscultated on exam yesterday. No distinct wheezes or significant rhonchi appreciated. Breathing room air. Symmetric chest expansion with adequate tidal volume. Speaking full sentences. HEART: Irregularly irregular rhythm. On remote telemetry, heart rate is been ranging from approximately [id number] BPM and she continues to be in atrial fibrillation. No distinct murmur, gallop or rub is appreciated. ABDOMEN: Soft, nondistended and nontender. EXTREMITIES: Trace to 1+ pitting edema of left lower extremity with slight, non- pitting swelling of the right lower extremity. 2+ radial and posterior tibial pulses bilaterally. NEUROLOGICAL: Alert and oriented 3. No focal neurological deficits appreciated. Non-dysarthric speech. Responding appropriately to questions and commands. PSYCHIATRIC: Mood and affect appear appropriate LABORATORY WORK: Please see below. ASSESSMENT AND PLAN: On review of remote telemetry over the past day, Juliana's heart rate has struggled to be controlled, with up-and-down periods and averaging approximately 120 bpm. It seems that over the past few hours, her heart rate is consistently stayed elevated. She did receive a one-time 150 mg IV dose of amiodarone yesterday at approximately 1830 and a one-time 5 mg IV dose of metoprolol tartrate at 1740 yesterday afternoon. She also received 50 mg metoprolol around 0530 as morning. Due to the difficulty in controlling her rate, we will switch her dosing to 100 mg metoprolol tartrate bid that will begin this evening. With having received a 50 mg metoprolol dose at 0530 this morning, we have ordered an additional 50 mg oral metoprolol dose now. In addition, we will restart digoxin administration with oral 0.125 daily dose. Her digoxin level was measured at 1.9 yesterday and is likely approximately half of that at this time. Should the combination of increased metoprolol tartrate dosing and digoxin not do the job at controlling rate, consideration of adding scheduled amiodarone is warranted. If administration of amiodarone is initiated, this can be monitored on an outpatient basis. Also, the metoprolol 100 bid dosing is likely the maximum dose for which Juliana will receive the benefit. It will likely take approximate 3 days for Juliana's current medications to reach a steady state. As time progresses, the effectiveness of these medications should increase. Impression from her echocardiogram shows a component of HFrEF with an EF of approximately 4045 percent, therefore we will continue to avoid calcium channel blocking medications. An one-time 20 mg IV dose of furosemide has been ordered. We also recommend that patient's anticoagulation agent be switched from Lovenox to a new oral anticoagulant (Xarelto or Eliquis). Should Eliquis be the agent of choice, she would receive 5 mg bid dosing. If her heart rate this afternoon is in the [id number] range, and she continues to be hemodynamically stable and relatively asymptomatic, she can be discharged. We would like her to follow-up in the office ([facility] cardiology on [facility]) early next week with Dr. Veliz, preferably on Wednesday, 01/14. The recommendations from our cardiology perspective were discussed this morning with Dr. Sims of the primary hospitalist service. Thank you for involving us in the care of Juliana. As previously stated, we would like to follow-up with her in Dr. Veliz's office early next week. Should further questions or concerns arise regarding her care from a cardiology standpoint, please feel free to reach out. Vital Signs/I&O VS/I&O Vital Signs Date Time Temp Pulse Resp B/P (MAP) Pulse Ox O2 Delivery O2 Flow Rate FiO2 01/11/20 08:26 140 120/90 01/11/20 08:00 98.3 20 93 Room Air 01/11/20 00:00 2.0 I&O- Last 24 Hours up to 6 AM 01/11/20 06:00 Intake Total 1310 ml Output Total 250 ml Balance 1060 ml Laboratory Data 24H LABS Laboratory Tests 2 01/11/20 05:28: Nucleated Red Blood Cells % (auto) 0.0, Anion Gap 6L, Glomerular Filtration Rate > 60.0, Calcium Level 9.2, Magnesium Level 1.7L CBC/BMP Laboratory Tests 01/11/20 05:28 Microbiology Microbiology 01/09/20 Urine Culture - Final, Complete 01/08/20 Blood Culture - Preliminary, Resulted No Growth after 48 hours. All Specime... 01/08/20 Respiratory Virus Panel (PCR) ([facility]) - Final, Complete 01/08/20 Blood Culture - Preliminary, Resulted No Growth after 48 hours. All Specime... RYLAN TAPIA D.O. Jan 11, 2020 10:00
--- NOTE | 2020-01-11 12:44 | IPNPDOC ---
Text Note Date of Service The patient was seen on 01/11/20. NOTE Subjective: Patient stated that her breathing continues improving. Her oxygen saturation 95% on the room air. Patient denies fever, chills, nausea, vomiting, chest pain, diarrhea. Objective: PHYSICAL EXAMINATION: VITAL SIGNS: Please see below. GENERAL APPEARANCE: NAD HEENT: PERRLA, EOMI RESPIRATORY: Diminished lung sounds bilaterally CARDIOVASCULAR: S1-S2, irregularly irregular with heart rate around 120 ABDOMEN: Nontender nondistended EXTREMITIES: No swelling NEUROLOGICAL: Cranial nerves from 2-12 intact Patient is 89 years old F with PMH appendectomy, hip replacement presented to the hospital with increased shortness of breath. Patient stated that for past 1 month patient has been having increased shortness of breath. In emergency room patient was found to have new onset atrial fibrillation with rapid ventricular rate. Dr. Veliz was contacted by phone, he recommended to start beta blockers. Chest x-ray showed left lung lobe opacification. Also patient was found to have leukocytosis of 15. Patient denied fever, chills, nausea, vomiting. Also she stated that she didn't have increased cough or sputum production. Also note patient has a long history of smoking more than 65 years. Problems (1) Sepsis Resolved Patient was tachycardic, had leukocytosis of 15, leukocytosis resolved Most likely secondary to respiratory infection. Chest x-ray in 2 projections positive for left lobe infiltrate Respiratory panel negative Blood culture negative, pro-calcitonin came back today negative I stopped antibiotics (2) Atrial fibrillation with rapid ventricular response New onset Heart rate is around 110-120 Continue treatment with beta blockers Eliquis twice a day Echo showed diastolic dysfunction with ejection fraction 40-45% (3) Pneumonia Chest x-ray in 2 projections showed left lobe infiltrate, patient had leukocytosis on admission Patient has a long history of smoking See above Electrolytes imbalance Magnesium replenished today PT/OT evaluation before discharge VS,Fishbone, I+O VS, Fishbone, I+O Laboratory Tests 01/11/20 05:28 Vital Signs Date Time Temp Pulse Resp B/P (MAP) Pulse Ox O2 Delivery O2 Flow Rate FiO2 01/11/20 08:26 140 120/90 01/11/20 08:00 98.3 20 93 Room Air 01/11/20 00:00 2.0 I&O- Last 24 Hours up to 6 AM 01/11/20 06:00 Intake Total 1310 ml Output Total 250 ml Balance 1060 ml MAURICIO BUSH DO Jan 11, 2020 12:44
[2020-01-11] MEDS ORDERED: AMIODARONE HCL 150 MG in IV 1 EA IV ONE (14:30)
[2020-01-11] MEDS ORDERED: AMIODARONE HCL 150 MG in IV 1 EA IV STA (20:28)
[2020-01-11] MEDS: APIXABAN 5 MG TAB (ELIQUIS) PO SCH (21:05)
[2020-01-12] VITALS: BP 98/58
[2020-01-12 06:10] LABS: HEMATOCRIT 43.4 % (36.0-47.0); HEMOGLOBIN 14.4 g/dl (12.0-15.5); MEAN CORPUSCULAR HEMOGLOBIN 31.5 pg (27.0-33.0); MEAN CORPUSCULAR HGB CONC 33.2 g/dl (32.0-36.5); PLATELET COUNT, AUTOMATED 237 10^3/uL (150-450); RED BLOOD COUNT 4.57 10^6/uL (4.00-5.40)
[2020-01-12 07:25] LABS: BLOOD UREA NITROGEN 14 MG/DL (7-18); CALCIUM LEVEL 9.1 MG/DL (8.8-10.2); CARBON DIOXIDE LEVEL 33 MEQ/L (21-32); CHLORIDE LEVEL 102 MEQ/L (98-107); CREATININE FOR GFR 0.83 MG/DL (0.55-1.30); GLOMERULAR FILTRATION RATE > 60.0 (>32); GLUCOSE, FASTING 105 MG/DL (70-100); MAGNESIUM LEVEL 1.6 MG/DL (1.8-2.4); POTASSIUM SERUM 4.1 MEQ/L (3.5-5.1); SODIUM LEVEL 138 MEQ/L (136-145)
[2020-01-12] MEDS ORDERED: SLF 3 ML SYR IV PRN (07:45)
[2020-01-12 08:00] VITALS: BP 128/70
[2020-01-12] MEDS: DIGOXIN 0.125 MG TAB PO SCH (08:04)
[2020-01-12] MEDS: METOPROLOL TART 50 MG TAB PO SCH ×2 (08:05→21:50)
[2020-01-12] MEDS: APIXABAN 5 MG TAB (ELIQUIS) PO SCH ×2 (08:05→21:49)
--- NOTE | 2020-01-12 08:35 | IPN ---
DATE: 01/12/2020 Unfortunately, Mrs. Hansen continues to be difficult to rate control. During the day yesterday she got an extra 50 mg of by mouth metoprolol and two separate doses of amiodarone IV 150 mg each. In spite of it, during the night her heart rate was only fairly controlled, alternating from about 100 beats per minute to about 150 beats per minute. On average looking at the telemetry tracing about 120. In the morning though when she starts moving around she accelerates into 140s before she got her morning medications. She also reports that last night she did not feel as good as the night before. She felt a little more short of breath and she noted that she was more short of breath when she went to the bathroom. She denied any chest discomfort. Vital Signs: Blood pressure 128/70. Heart rate 144. Afebrile. Saturation 91% on room air. Her fluid balance yesterday was approximately equal, but the documentation was probably incorrect. Weight has not been recorded this morning as yet. She is alert, oriented and appropriate, remains very pleasant. Her jugular venous pulse (JVP) is mildly elevated, about maybe 4 cm above the clavicle. Lungs are diminished over both bases with some end inspiratory crackles. There is thoracic kyphoscoliosis. Heart exam reveals irregular tachycardia. I do not appreciate distinct gallop, rub or murmur. Abdomen is soft. There is no peripheral edema. Laboratories: Basic metabolic panel is normal, but for magnesium 1.6. CBC is normal. ASSESSMENT/PLAN: Mrs. Hansen is an 89-year-old female who presented with shortness of breath and was found to be in atrial fibrillation with rapid ventricular response. 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 She initially got a combination of medications that included digoxin, Cardizem and metoprolol and transiently we accomplished reasonable rate control, but once I reduced the medication to metoprolol and digoxin only her heart rate is not well-controlled. Because she has reduced left ventricular systolic function, she is not a good candidate to calcium channel blockers and consequently I am going to start her on amiodarone. I do not believe that it is a particularly good idea to give her high doses of IV amiodarone because it can lead to cardioversion which would not be desirable in this setting. I think we should start just oral loading which will take a longer time to exert its effect and will principally serve as a rate slowing mechanism. I started her on amiodarone 400 mg twice a day as of this morning. I will continue metoprolol 100 mg twice a day. Because the amiodarone will increase the level of free digoxin, I stopped the digoxin as well. Because she still has signs and symptoms of congestive heart failure, I started her on low-dose diuretic with furosemide 20 mg daily. I believe that she can be discharged home once her heart rate is slightly better. It does not have to be perfect and I will be happy with an average heart rate around 110. I plan to see her in followup next week. Obviously, she will need to remain anticoagulated. Dr. Ramirez is resolution agent this weekend so please contact him if further assistance is necessary, but hopefully it will not be.
[2020-01-12] MEDS: FUROSEMIDE 20 MG TAB PO SCH (09:16)
[2020-01-12] MEDS: MAGNESIUM GLUCONATE 500 MG TAB PO SCH ×2 (09:16→21:49)
[2020-01-12] MEDS: AMIODARONE 200 MG TAB (PACERONE) PO SCH ×2 (09:16→21:49)
--- NOTE | 2020-01-12 11:27 | IPNPDOC ---
Text Note Date of Service The patient was seen on 01/12/20. NOTE Subjective: Patient during physical therapy session developed increased short ness of breath with heart rate around 150-170. Patient denies fever, chills, nausea, vomiting, chest pain, diarrhea. Objective: PHYSICAL EXAMINATION: VITAL SIGNS: Please see below. GENERAL APPEARANCE: NAD HEENT: PERRLA, EOMI RESPIRATORY: Diminished lung sounds bilaterally CARDIOVASCULAR: S1-S2, irregularly irregular with heart rate around 110, plus JVD ABDOMEN: Nontender nondistended EXTREMITIES: No swelling NEUROLOGICAL: Cranial nerves from 2-12 intact Patient is 89 years old F with PMH appendectomy, hip replacement presented to the hospital with increased shortness of breath. Patient stated that for past 1 month patient has been having increased shortness of breath. In emergency room patient was found to have new onset atrial fibrillation with rapid ventricular rate. Dr. Veliz was contacted by phone, he recommended to start beta blockers. Chest x-ray showed left lung lobe opacification. Also patient was found to have leukocytosis of 15. Patient denied fever, chills, nausea, vomiting. Also she stated that she didn't have increased cough or sputum production. Also note patient has a long history of smoking more than 65 years. During hospital stay patient received treatment with beta blockers, digoxin, diltiazem. Despite of treatment her heart rate was difficult to control. Cardiac team started amiodarone. Problems (1) Sepsis Resolved Patient was tachycardic, had leukocytosis of 15, leukocytosis resolved Most likely secondary to respiratory infection. Chest x-ray in 2 projections positive for left lobe infiltrate Respiratory panel negative Blood culture negative, pro-calcitonin came back today negative I stopped antibiotics (2) Atrial fibrillation with rapid ventricular response New onset Heart rate is around 110-120. Heart rate is difficult to control despite of beta blockers and digoxin. Cardiac team started loading dose of amiodarone 400 mg twice. Continue treatment with beta blockers we have increased dose 100 mg twice a day Eliquis twice a day Echo showed diastolic dysfunction with ejection fraction 40-45% (3) Pneumonia Chest x-ray in 2 projections showed left lobe infiltrate, patient had leukocytosis on admission Patient has a long history of smoking See above Electrolytes imbalance Magnesium replenished today Diastolic CHF Acute Most likely secondary to tachycardic cardiomyopathy Cardiac team started low dose of Lasix I's and O's Cardiac diet Continue PT/OT VS,Fishbone, I+O VS, Fishbone, I+O Laboratory Tests 01/12/20 05:25 Vital Signs Date Time Temp Pulse Resp B/P (MAP) Pulse Ox O2 Delivery O2 Flow Rate FiO2 01/12/20 08:05 144 128/70 01/12/20 08:00 98.0 17 91 Room Air 01/11/20 00:00 2.0 I&O- Last 24 Hours up to 6 AM 01/12/20 06:00 Intake Total 500 ml Output Total 150 ml Balance 350 ml MAURICIO BUSH DO Jan 12, 2020 11:27
[2020-01-12 12:00] VITALS: BP 102/66
[2020-01-12] MEDS: SLF 3 ML SYR IV SCH ×2 (14:00→21:50)
[2020-01-12 16:00] VITALS: BP 102/68
[2020-01-12] MEDS ORDERED: METOPROLOL 5 MG/5 ML VIAL IV STA (17:24)
[2020-01-12] MEDS ORDERED: METOPROLOL 5 MG/5 ML VIAL As Ordered ONE (17:27)
[2020-01-12 20:00] VITALS: BP 120/78
[2020-01-13] VITALS: BP 110/72
[2020-01-13 04:00] VITALS: BP 118/64
[2020-01-13] MEDS: SLF 3 ML SYR IV SCH (06:17)
[2020-01-13 06:41] LABS: HEMATOCRIT 43.8 % (36.0-47.0); HEMOGLOBIN 14.1 g/dl (12.0-15.5); MEAN CORPUSCULAR HEMOGLOBIN 30.5 pg (27.0-33.0); MEAN CORPUSCULAR HGB CONC 32.2 g/dl (32.0-36.5); MEAN CORPUSCULAR VOLUME 94.6 fl (80.0-96.0); PLATELET COUNT, AUTOMATED 226 10^3/uL (150-450); RED BLOOD COUNT 4.63 10^6/uL (4.00-5.40); WHITE BLOOD COUNT 6.3 10^3/uL (4.0-10.0)
[2020-01-13 07:05] LABS: BLOOD UREA NITROGEN 12 MG/DL (7-18); CALCIUM LEVEL 8.9 MG/DL (8.8-10.2); CARBON DIOXIDE LEVEL 30 MEQ/L (21-32); CHLORIDE LEVEL 103 MEQ/L (98-107); CREATININE FOR GFR 0.91 MG/DL (0.55-1.30); GLOMERULAR FILTRATION RATE > 60.0 (>32); GLUCOSE, FASTING 108 MG/DL (70-100); MAGNESIUM LEVEL 1.5 MG/DL (1.8-2.4); POTASSIUM SERUM 3.5 MEQ/L (3.5-5.1); SODIUM LEVEL 140 MEQ/L (136-145)
[2020-01-13 08:00] VITALS: BP 105/58
[2020-01-13] MEDS ORDERED: MAG SULF 1GM/100ML (MAG RUN) 1 GM in IV 1 EA IV ONE (08:00)
[2020-01-13 08:13] VITALS: BP 105/58
[2020-01-13] MEDS: METOPROLOL TART 50 MG TAB PO SCH (08:13)
[2020-01-13] MEDS: FUROSEMIDE 20 MG TAB PO SCH (08:14)
[2020-01-13] MEDS: APIXABAN 5 MG TAB (ELIQUIS) PO SCH (08:14)
[2020-01-13] MEDS: AMIODARONE 200 MG TAB (PACERONE) PO SCH (08:14)
[2020-01-13] MEDS: MAGNESIUM GLUCONATE 500 MG TAB PO SCH (08:14)
[2020-01-13] MEDS ORDERED: POTASSIUM CHLORIDE 10 MEQ SR TABLET PO ONE (09:00)
[2020-01-13] MEDS ORDERED: LOPR1TAB6 PO (10:01)
[2020-01-13] MEDS ORDERED: FURO20TA2 PO (10:01)
[2020-01-13] MEDS ORDERED: AMIO200T PO (10:01)
[2020-01-13] MEDS ORDERED: ELIQ5TAB PO (10:01)
[2020-01-13] MEDS ORDERED: MAGN50TA PO (10:01)
[2020-01-13] MEDS ORDERED: POTA20TA6 PO (10:02)
--- NOTE | 2020-01-13 15:09 | DS.PDOC ---
Discharge Summary General Date of Admission Jan 08, 2020 at 15:45 Date of Discharge 01/13/20 Discharge Summary PROCEDURES PERFORMED DURING STAY: [None]. ADMITTING DIAGNOSES: Sepsis Atrial fibrillation with rapid ventricular response Pneumonia Electrolytes imbalance Diastolic CHF DISCHARGE DIAGNOSES: Sepsis Atrial fibrillation with rapid ventricular response Pneumonia Electrolytes imbalance Diastolic CHF COMPLICATIONS/CHIEF COMPLAINT: Atrial Fibrillation With Rapid Ventricular Respons. HISTORY OF PRESENT ILLNESS: Patient is 89 years old F with PMH appendectomy, hip replacement presented to the hospital with increased shortness of breath. Patient stated that for past 1 month patient has been having increased shortness of breath. In emergency room patient was found to have new onset atrial fibri llation with rapid ventricular rate. Dr. Veliz was contacted by phone, he recommended to start beta blockers. Chest x-ray showed left lung lobe opacification. Also patient was found to have leukocytosis of 15. Patient denied fever, chills, nausea, vomiting. Also she stated that she didn't have increased cough or sputum production. Also note patient has a long history of smoking more than 65 years. During hospital stay patient received treatment with beta blockers, digoxin, diltiazem. Despite of treatment her heart rate was difficult to control. Cardiac team started amiodarone. HOSPITAL COURSE: During hospital stay following issue addressed (1) Sepsis Patient was tachycardic, had leukocytosis of 15, Subsequently leukocytosis resolved Most likely secondary to respiratory infection. Chest x-ray in 2 projections positive for left lobe infiltrate Respiratory panel negative Blood culture negative, pro-calcitonin came back negative Patient received treatment with levofloxacin (2) Atrial fibrillation with rapid ventricular response New onset Heart rate is around 110-120. Heart rate is difficult to control despite of beta blockers and digoxin. Cardiac team started loading dose of amiodarone 400 mg twice. 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 ALLERGIES: Please see below. PHYSICAL EXAMINATION ON DISCHARGE: VITAL SIGNS: Please see below. GENERAL: HEENT: NECK: CARDIOVASCULAR EXAMINATION: RESPIRATORY EXAMINATION: ABDOMINAL EXAMINATION: EXTREMITIES: SKIN: NEUROLOGICAL EXAMINATION: PSYCHIATRIC EXAMINATION: LABORATORY DATA: Please see below. IMAGING: DATE OF PROCEDURE: 01/10/2020 REFERRING PHYSICIAN: Dr. Mauricio Sims REASON FOR ECHOCARDIOGRAM: Atrial fibrillation. 2D MEASUREMENTS IVS: 1.3 cm LV: 3.4 cm LVPW: 1.3 cm LA: 3.7 cm Aorta: 4.1 cm IVC: 1.9 cm DOPPLER MEASUREMENTS: Peak velocity across the tricuspid valve: 2.8 m/s Peak velocity across the aortic valve: 0.9 m/s Peak velocity across the LVOT: 0.7 m/s 2D COMMENTS: 1. Normal left ventricular size with mildly increased left ventricular wall thickness but a moderately depressed global left ventricular systolic function. The estimated left ventricular systolic ejection fraction is 40-45%. There was global hypokinesis. At the same time, patient also was tachycardic. 2. Subjectively, the left atrium is mildly enlarged. The right atrium is moderately enlarged. The right ventricle appeared to be mildly enlarged and right ventricular free wall seems to be hypokinetic. 3. The atrial septum appeared to be normal without evidence of defect or shunt. 4. Mildly enlarged aortic root at 4.1 cm. 5. Small pericardial effusion was noted, no evidence of cardiac tamponade. Bilateral pleural effusion was noted. 6. Mildly calcified aortic valve with normal leaflet excursion. Mildly calcified mitral annulus with normal anterior mitral valve leaflet motion. Normal tricuspid valve and pulmonic valve. The proximal pulmonary artery branches were not well visualized. 7. The inferior vena cava appeared to be borderline enlarged. Central venous pressure might be elevated. DOPPLER: It detects mild aortic regurgitation, moderate mitral regurgitation, mild tricuspid regurgitation, and trace pulmonic regurgitation. The calculated pulmonary artery systolic pressure varies between 30 to 40 mmHg. Assessment of the left ventricular diastolic function was limited in view of the tachycardia and underlying atrial fibrillation. IMPRESSION: 1. Moderate global left ventricular systolic dysfunction with mild to moderate global hypokinesis. Assessment of the left ventricular diastolic function was limited as mentioned above. 2. Subjectively, the left atrium appeared to be mildly enlarged. There was mitral annulus calcification with moderate mitral regurgitation. 3. Mild tricuspid regurgitation with mild pulmonary hypertension. Cannot not rule out more severe pulmonary hypertension in view of the dilated right atrium and the right ventricle. 4. There are some features of elevated central venous pressure, the inferior vena cava appeared to be mildly enlarged. 5. A small pericardial effusion was noted, no evidence of cardiac tamponade. Pleural effusions also noted. 6. Dilated aortic root at 4.1 cm. 7. Patient was tachycardic during the test with a maximum heart rate of about 145 beats per minute. INTERPRETATION And DD: ELI DE JESUS MD 01/10/202039 DT: OBDULIO 01/10/202111 DS: DS2: PROGNOSIS: Fair ACTIVITY: [As tolerated]. DIET: Cardiac DISPOSITION: 06 Home Health Service. ITEMS TO FOLLOWUP ON ON OUTPATIENT: Follow-up with supervisor money room Dr. Veliz in the outpatient settings DISCHARGE CONDITION: [Stable]. TIME SPENT ON DISCHARGE: Greater than 20 minutes. Vital Signs/I&Os Vital Signs Date Time Temp Pulse Resp B/P (MAP) Pulse Ox O2 Delivery O2 Flow Rate FiO2 01/13/20 08:13 111 105/58 01/13/20 08:00 98.3 18 91 Room Air 01/11/20 00:00 2.0 I&O- Last 24 Hours up to 6 AM 01/13/20 06:00 Intake Total 975 ml Output Total 600 ml Balance 375 ml Laboratory Data Labs 24H Laboratory Tests 2 01/13/20 06:06: Nucleated Red Blood Cells % (auto) 0.0, Anion Gap 7L, Glomerular Filtration Rate > 60.0, Calcium Level 8.9, Magnesium Level 1.5L CBC/BMP Laboratory Tests 01/13/20 06:06 Microbiology Microbiology 01/09/20 Urine Culture - Final, Complete 01/08/20 Blood Culture - Final, Complete NO GROWTH AFTER 5 DAYS 01/08/20 Respiratory Virus Panel (PCR) (NUHA) - Final, Complete 01/08/20 Blood Culture - Preliminary, Resulted No Growth after 72 hours. All specime... Discharge Medications Scheduled Amiodarone HCl (Amiodarone HCl) 200 Mg Tablet, 400 MG PO BID Apixaban (Eliquis) 5 Mg Tablet, 5 MG PO BID Bimatoprost (Lumigan) 0.01% 2.5ML Drops, 1 DROP OS QHS, (Reported) Calcium Carbonate (Calcium) 500 Mg Tab.chew, 1 CHW PO BID, (Reported) Furosemide (Furosemide) 20 Mg Tablet, 20 MG PO DAILY Magnesium Gluconate (Mag-G) 27 Mg Tablet, 250 MG PO BID Metoprolol Tartrate (Lopressor) 50 Mg Tablet, 100 MG PO BID Multivitamins (Thera M Plus Tablet) 1 Each Tablet, 1 TAB PO DAILY, (Reported) TAKES AT NOON Potassium Chloride (Potassium Chloride) 20 Meq Tab.er.prt, 1 TAB PO DAILY Allergies Coded Allergies: Penicillins (Verified Allergy, Intermediate, hives, 01/08/20) MAURICIO SIMS DO Jan 13, 2020 15:09
== END 2020-01-13 11:53 | disposition home health service (06) | DRG 871 ==
LOC: M ED 13:11 → M ED INP 15:45 → ENRESERV 17:08 → M RR INP 17:49 → M MSPAV 01-10 13:57 → M PCU 01-11 14:40
PROVIDERS: ADMIT Internal Medicine; ATTEND Internal Medicine
DX: A41.9 Sepsis, unspecified organism (principal); J18.9 Pneumonia, unspecified organism; I50.31 Acute diastolic (congestive) heart failure; I48.19 Other persistent atrial fibrillation; I42.8 Other cardiomyopathies; J98.11 Atelectasis; J44.9 Chronic obstructive pulmonary disease, unspecified; Z98.41 Cataract extraction status, right eye; Z98.42 Cataract extraction status, left eye; Z96.649 Presence of unspecified artificial hip joint; Z87.891 Personal history of nicotine dependence; Z90.49 Acquired absence of other specified parts of digestive tract; Z88.0 Allergy status to penicillin; Z79.899 Other long term (current) drug therapy

== ENCOUNTER 2020-08-05 13:55 | Inpatient (IN) | payer MEDICARE ==
[~2020-08-05] VITALS: Ht 154.9 cm; Wt 57.9 kg
[~2020-08-05 13:55] MED LIST changes: +AMIO200T3 PO; +BIMA01SOL OS; +CALC500C14 PO; +ELIQ5TAB PO; +FURO20TA2 PO; +LOPR1TAB6 PO; +MAGN50TA PO; +POTA20TA6 PO; +VITMTA PO
[2020-08-05] MEDS ORDERED: NS 500 ML IV ONE (14:30)
[2020-08-05] MEDS ORDERED: DIGOXIN INJ 0.5 MG/2 ML AMP (J1160) IV ONE ×2 (14:45→16:00)
[2020-08-05] MEDS ORDERED: ACETAMINOPHEN TAB 650MG DOSE (2X325MG) PO ONE (14:45)
[2020-08-05 15:16] LABS: BASO # 0.1 10^3/uL (0.0-0.2); BASO % 0.4 % (0.0-1.0); HEMATOCRIT 42.1 % (36.0-47.0); HEMOGLOBIN 13.9 g/dl (12.0-15.5); LYMPH # 0.5 10^3/uL (1.5-5.0); LYMPH % 2.9 % (24.0-44.0); MEAN CORPUSCULAR HEMOGLOBIN 30.6 pg (27.0-33.0); MEAN CORPUSCULAR VOLUME 92.7 fl (80.0-96.0); MONO # 1.7 10^3/uL (0.0-0.8); MONO % 10.3 % (0.0-5.0); NEUTROPHILS # 14.1 10^3/uL (1.5-8.5); NEUTROPHILS % 85.5 % (36.0-66.0); PLATELET COUNT, AUTOMATED 221 10^3/uL (150-450); RED BLOOD COUNT 4.54 10^6/uL (4.00-5.40); WHITE BLOOD COUNT 16.4 10^3/uL (4.0-10.0)
[2020-08-05 15:52] LABS: ALBUMIN 2.8 GM/DL (3.2-5.2); ALT/SGPT 15 U/L (12-78); BILIRUBIN,DIRECT 0.2 MG/DL (0.0-0.2); BILIRUBIN,TOTAL 0.6 MG/DL (0.2-1.0); BLOOD UREA NITROGEN 22 MG/DL (7-18); CALCIUM LEVEL 8.9 MG/DL (8.8-10.2); CARBON DIOXIDE LEVEL 22 MEQ/L (21-32); CHLORIDE LEVEL 103 MEQ/L (98-107); CK-MB VALUE MASS 1.5 NG/ML (<3.6); CPK CREATINE PHOSPHOKINASE 41 U/L (26-192); CREATININE FOR GFR 1.63 MG/DL (0.55-1.30); GLOMERULAR FILTRATION RATE 31.7 (>32); GLUCOSE, FASTING 100 MG/DL (70-100); MAGNESIUM LEVEL 1.3 MG/DL (1.8-2.4); MB/CK RELATIVE INDEX 3.66 (< OR =4); POTASSIUM SERUM 4.1 MEQ/L (3.5-5.1); SODIUM LEVEL 136 MEQ/L (136-145); THYROID STIMULATING HORMONE 0.596 uIU/ML (0.358-3.740); TOTAL PROTEIN 5.6 GM/DL (6.4-8.2); TROPONIN I < 0.02 NG/ML (< 0.10)
[2020-08-05] MEDS ORDERED: NS 1,000 ML IV ONE (16:00)
[2020-08-05] MEDS ORDERED: MAG SULF 1GM/100ML (MAG RUN) 1 GM in IV 1 EA IV ONE ×3 (16:00→18:45)
[2020-08-05] MEDS ORDERED: CEFEPIME HCL 2 GM in D5W MINI-BAG PLUS 50 ML IV ONE (16:30)
[2020-08-05] MEDS ORDERED: NS 1,680 ML in IV 1 EA IV ONE ×4 (16:30)
--- NOTE | 2020-08-05 16:54 | REP ---
INDICATION: hypotension. COMPARISON: January 08, 2020.. TECHNIQUE: Sitting AP portable chest x-ray. FINDINGS: The lungs are hyperinflated as before consistent with some degree of COPD. The heart is enlarged unchanged. Aorta is tortuous and calcific. The pulmonary vasculature is not increased. Pleural angles are sharp. There is a 1 cm somewhat nodular density in the periphery of the right upper lobe. I suspect a pulmonary nodule. Consider chest CT. No infiltrate is seen. IMPRESSION: Hyperinflation consistent with COPD. Cardiomegaly. No infiltrate seen. Nodular opacity right upper lobe peripherally approximately a cm in diameter. Consider chest CT. <Electronically signed by Damir Barlow > 08/05/20 [id number]
--- NOTE | 2020-08-05 17:28 | REP ---
INDICATION: ischemic colitis, sepsis, ARF. COMPARISON: None TECHNIQUE: Noncontrast CT abdomen pelvis with coronal and sagittal reconstructions. Orthopedic metal artifact reduction algorithm used in the deep pelvis for a hip arthroplasty artifact. FINDINGS: CT abdomen: Lung bases showed some minor subsegmental atelectasis or linear scar in the deep sulci without effusion or acute infiltrate. The heart is enlarged with left atrial and left ventricular enlargement. Small amount of pericardial effusion anteriorly versus thickening with calcifications at the aortic root and coronary arteries. There is not grossly enlarged. There is no hepatic mass or biliary dilatation. Spleen is not enlarged and shows no focal lesion. There is no ascites. Gallbladder is moderately distended but without calcified stone or pericholecystic fluid. No layering stones or debris suggested. Pancreas without gross mass or peripancreatic fluid collection. There is atherosclerotic calcifications aorta with diffuse at appearance in the infrarenal region without aneurysm. There are calcifications at the origin of both renal arteries. Minimal calcification at the origin of the celiac axis and SMA. Small bowel loops are not abnormally dilated. The right, transverse and left colon in the abdomen show some wall thickening and pericolonic edema suggesting some colitis. There is no evidence for perforation, free air or pneumatosis. No ascites in the peritoneal gutters. The adrenal glands are unremarkable. Kidneys show some calcifications in the arteries but no obstructing stones. There is no hydronephrosis there are few calcifications in pyramids in the 1-2 mm range. There is also cortical or capsular calcification lower pole on the right. Bone windows show diffuse degenerative disc changes lower thoracic and upper lumbar spine with vacuum phenomenon relatively sparing the L3-4 through L5-S1 levels. Those lower levels show facet arthropathy, however no compression fractures or destructive lesions are seen. Visualized ribs without acute finding. CT pelvis: Sacrum and SI joints intact iliac bones without focal lesion. There is a right hip arthroplasty and some degenerative changes of the left hip which are mild. No left hip fracture or focal lesion. Visualized acetabulae and pubic rami grossly intact. Small bowel loops in the pelvis were unremarkable. Bladder only seen in part due to the shadowing from the right hip arthroplasty. Pelvic phleboliths are evident. Small bowel loops grossly intact. The distal left colon and proximal sigmoid are seen with some bowel wall thickening and findings suggesting colitis. Cecum is obscured by shadowing. There are vascular calcifications of the iliac and femoral arteries. No ventral or inguinal hernia nor pathologic sized inguinal adenopathy. IMPRESSION: 1. Pancolitis from the proximal right colon to the proximal sigmoid with the deep pelvic portions of colon obscured by extensive beam hardening artifact from right hip arthroplasty. There is no pneumatosis, perforation or free air. No gross ascites. Small bowel loops grossly intact. Origin of this is uncertain. In the absence of pneumatosis or contrast to evaluate the arterial tree, ischemic colitis is difficult to precisely define. That is part of the differential along with antibiotic induced colitis or inflammatory bowel disease. 2. Atherosclerotic calcifications aorta iliac and femoral arteries without aneurysm. 3. Few punctate pyramidal calcifications in each kidney without obstruction no hydronephrosis hydroureter or ureteral stone. No renal mass. 4. Gallbladder distention without calcified stone or mass. The liver, spleen, adrenal glands and pancreas without acute finding. <Electronically signed by Chaim Kan > 08/05/20 [id number]
[2020-08-05 17:39] LABS: AMORPHOUS SEDIMENT SMALL (NEGATIVE); APPEARANCE, URINE CLOUDY (CLEAR); BACTERIA, URINE AUTO 1+ (NEGATIVE); BILIRUBIN, URINE AUTO 1+ (NEGATIVE); BLOOD, URINE BLOOD NEGATIVE (NEGATIVE); COLOR, URINE AMBER (YELLOW); GLUCOSE, URINE (UA) AUTO NEGATIVE (NEGATIVE); KETONE, URINE AUTO TRACE mg/dL (NEGATIVE); LEUKOCYTE ESTERASE, URINE AUTO NEGATIVE (NEGATIVE); MUCUS, URINE SMALL (NEGATIVE); NITRITE, URINE AUTO NEGATIVE (NEGATIVE); PROTEIN, URINE AUTO 2+ mg/dL (NEGATIVE); RBC, URINE AUTO 2 /HPF (0-3); SPECIFIC GRAVITY URINE AUTO 1.025 (1.002-1.035); SQUAMOUS EPITHELIAL CELL UR AU 1 /HPF (0-6); WBC, URINE AUTO 5 /HPF (0-3)
[2020-08-05 17:58] LABS: C REACTIVE PROTEIN QUANTITATIV 18.6 MG/DL (0.00-0.30); INR 1.2; PROTHROMBIN TIME 15.5 SECONDS (12.5-14.3)
[2020-08-05] MEDS ORDERED: ELIQ2.5T PO (18:10)
[2020-08-05] MEDS ORDERED: METO1TAB87 PO (18:10)
[2020-08-05] MEDS ORDERED: POTA20TA6 PO (18:10)
[2020-08-05] MEDS ORDERED: BIMA01SOL OS (18:10)
[2020-08-05] MEDS ORDERED: PRESCAP PO (18:45)
[2020-08-05] MEDS ORDERED: CALC500T68 PO (18:45)
[2020-08-05] MEDS ORDERED: FURO20TA2 PO (18:45)
[2020-08-05] MEDS ORDERED: DIGOXIN INJ 0.5 MG/2 ML AMP (J1160) IV STA (20:55)
[2020-08-05] MEDS ORDERED: APIXABAN 2.5 MG TAB (ELIQUIS) PO SCH (21:00)
[2020-08-05] MEDS ORDERED: METOPROLOL TART 12.5 MG PER 1/2 TAB PO SCH (21:00)
--- NOTE | 2020-08-05 21:42 | HPEPDOC ---
General Date of Admission Aug 05, 2020 at 18:04 Date of Service: Aug 05, 2020 Chief Complaint The patient is a 89-year-old female admitted with a reason for visit of Shamar,Atrial Fib With Rvr,Diarrhea,Sepsis. History of Present Illness Mrs. Hansen is an 89 year old female with atrial fibrillation who is here for abdominal pain with nausea and diarrhea. About a week ago, she was started on antibiotics for sinusitis. She completed antibiotics on Wednesday. On Wednesday, she started to have abdominal pain and watery diarrhea which progressively worsened throughout the week with increasing nausea. Due to the nausea, she had stopped taking her medication and had poor oral intake. She visited her PCP today, and her SBP was in the 80s and HR in the 140s to 150s. She was sent to the ED. While in the ED, she was given 30mL/kg and started on maintenance fluids. Lactic acid was 2.5, potassium 4.1, and magnesium was 1.3. They gave her 2 rounds of digoxin. With the fluid and digoxin, HR and blood pressure did not improve. I reached out to cardiology. They recommended an addition digoxin to reach the loading dose of 0.75mg. If this does not work, cardiology (Dr. Veliz) recommends amiodarone drip without the loading dose (start at phase 2). Unable to use BB or CBB due to hypotension. Home Medications Scheduled Apixaban (Eliquis) 2.5 Mg Tablet, 2.5 MG PO BID, (Reported) Bimatoprost (Lumigan) 0.01% 2.5ML Drops, 1 DROP OS QHS, (Reported) Calcium Carbonate (Calcium) 500 Mg Tab.chew, 1,000 MG PO DAILY, (Reported) Furosemide (Furosemide) 20 Mg Tablet, 20 MG PO DAILY, (Reported) Metoprolol Tartrate (Metoprolol Tartrate) 25 Mg Tablet, 12.5 MG PO BID, (Reported) Multivitamins (Thera M Plus Tablet) 1 Each Tablet, 2 TAB PO DAILY, (Reported) TAKES AT NOON Potassium Chloride (Potassium Chloride) 20 Meq Tab.er.prt, 20 MEQ PO DAILY, (Reported) Vit A/Vit C/Vit E/Zinc/Copper (Preservision Areds Softgel) 1 Each Capsule, 1 CAP PO DAILY, (Reported) Allergies Coded Allergies: Penicillins (Verified Allergy, Intermediate, hives, 01/08/20) Past Medical History Medical History 1. Atrial fibrillation 2. CHF 3. Glaucoma Surgical History 1. Tonsilectomy 2. Appendectomy 3. x2 4. Right hip replacement Family History Significant Family History: Noncontributory Social History * Smoker: former Smoker (Quit 3 years ago, smoked for 67 years, couple pack per day) Alcohol: Denies Drugs: denies A-FIB/CHADSVASC A-FIB History Current/History of A-Fib/PAF?: Yes Current PO Anticoag Therapy: Yes Review of Systems Constitutional: Denies: Chills, Fever Eyes: Denies: Vision change ENT: Denies: Sore Throat Skin: Denies: Rash Pulmonary: Denies: Dyspnea, Cough Cardiovascular: Denies: Chest Pain, Palpitations, Lt Headedness Gastrointestinal: Reports: Nausea, Abdominal Pain, Diarrhea Genitourinary: Denies: Dysuria Hematologic: Reports: Bruising Endocrine: Denies: Polydipsia, Polyphagia, Polyuria Physical Examination General Exam: Positive: Alert, Cooperative Eye Exam: Positive: EOMI; Negative: Sclera icteric ENT Exam: Positive: Atraumatic Neck Exam: Positive: Supple Chest Exam: Positive: Clear to auscultation; Negative: Rales, Rhonchi, Wheezing Heart Exam: Positive: Tachycardic, Irregular Rhythm Abdomen Exam: Positive: Normal bowel sounds, Soft, Tenderness (mild) Extremity Exam: Negative: Edema Neuro Exam: Positive: Cranial Nerves 3-12 NL Psych Exam: Positive: Mental status NL, Mood NL Vital Signs Vital Signs Date Time Temp Pulse Resp B/P (MAP) Pulse Ox O2 Delivery O2 Flow Rate FiO2 08/05/20 20:15 87/50 (62) 08/05/20 20:10 144 96 08/05/20 18:25 20 08/05/20 16:17 99.1 08/05/20 14:26 Room Air Laboratory Data Labs 24H Laboratory Tests 2 08/05/20 14:17: Immature Granulocyte % (Auto) 0.9, Neutrophils (%) (Auto) 85.5H, Lymphocytes (%) (Auto) 2.9L, Monocytes (%) (Auto) 10.3H, Eosinophils (%) (Auto) 0.0, Basophils (%) (Auto) 0.4, Neutrophils # (Auto) 14.1H, Lymphocytes # (Auto) 0.5L, Monocytes # (Auto) 1.7H, Eosinophils # (Auto) 0.0, Basophils # (Auto) 0.1, Nucleated Red Blood Cells % (auto) 0.0, Anion Gap 11, Glomerular Filtration Rate 31.7L, Calcium Level 8.9, Magnesium Level 1.3L, Total Bilirubin 0.6, Direct Bilirubin 0.2, Aspartate Amino Transf (AST/SGOT) 15, Alanine Aminotransferase (ALT/SGPT) 15, Alkaline Phosphatase 58, Total Creatine Kinase 41, Creatine Kinase MB 1.5, Creatine Kinase MB Relative Index 3.66, Troponin I < 0.02, Total Protein 5.6L, Albumin 2.8L, Albumin/Globulin Ratio 1.0L, Thyroid Stimulating Hormone (TSH) 0.596 08/05/20 14:35: Lactic Acid Level 2.5*H 08/05/20 14:46: Coronavirus (COVID-19)(PCR) NEGATIVE 08/05/20 17:23: Prothrombin Time 15.5H, Prothromb Time International Ratio 1.20, Activated Partial Thromboplast Time 35.0, Urine Color JARROD, Urine Appearance CLOUDYH, Urine pH 5.0, Urine Specific [place] 1.025, Urine Protein 2+H, Urine Glucose (Auto)(UA) NEGATIVE, Urine Ketones (Auto) TRACEH, Urine Blood NEGATIVE, Urine Nitrite NEGATIVE, Urine Bilirubin 1+H, Urine Urobilinogen 2.0H, Urine Leukocyte Esterase (Auto) NEGATIVE, Urine WBC (Auto) 5H, Urine RBC (Auto) 2, Urine Hyaline Casts (Auto) 11, Urine Bacteria (Auto) 1+H, Urine Squamous Epithelial Cells 1, Urine Amorphous Sediment (Auto) SMALLH, Urine Mucus (Auto) SMALL, Urine Sperm (Auto) , C-Reactive Protein, Quantitative 18.60H, Amylase Level 26 08/05/20 19:26: Lactic Acid Level 2.7*H CBC/BMP Laboratory Tests 08/05/20 14:17 Microbiology Microbiology 08/05/20 Campylobacter (PCR), Received Pending 08/05/20 Clostridium difficile Toxin A&B PCR, Received Pending 08/05/20 Plesiomonas shigelloides (PCR), Received Pending 08/05/20 Salmonella (PCR)(NUHA), Received Pending 08/05/20 Vibrio Species (PCR), Received Pending 08/05/20 Vibrio Cholerae (PCR), Received Pending 08/05/20 Yersinia enterocolitica (PCR), Received Pending 08/05/20 Enteroaggregative E. coli (PCR), Received Pending 08/05/20 Enteropathogenic E. coli (PCR), Received Pending 08/05/20 Enterotoxigenic E. coli (PCR), Received Pending 08/05/20 E. coli Shiga-like Toxin (PCR), Received Pending 08/05/20 Escherichia coli 0157 (PCR), Received Pending 08/05/20 Enteroinvasive E. coli/Shigella PCR, Received Pending 08/05/20 Cryptosporidium (PCR), Received Pending 08/05/20 Cyclospora cayetanensis (PCR), Received Pending 08/05/20 Entamoeba histolytica (PCR), Received Pending 08/05/20 Giardia lamblia (PCR), Received Pending 08/05/20 Adenovirus Type F 40/41 (PCR), Received Pending 08/05/20 Astrovirus (PCR), Received Pending 08/05/20 Norovirus GI/GII (PCR), Received Pending 08/05/20 Rotavirus A (PCR), Received Pending 08/05/20 Sapovirus I/II/IV/V (PCR), Received Pending 08/05/20 Urine Culture, Received Pending 08/05/20 Blood Culture, Received Pending 08/05/20 Blood Culture, Received Pending Assessment/Plan Mrs. Hansen is an 89 year old female with a.fib and CHF here with abdominal pain with nausea and diarrhea found to have pancolitis, hypotension, and atrial fibrillation with RVR. She meets sepsis criteria with the lactic acidosis. She was given antibiotics and 30kg/mL of fluid. Her pancolitis may be C.diff related. No history of C.diff in the past. She was recently on antibiotics and her diarrhea has been watery. The GI panel will take several days to return. Will order C.diff PCR for faster results. Her A.fib has not resolved with fluids or 2 round of digoxin. Spoke with cardiology. Recommend trying one more dose before amiodarone drip. Due to her hypotension, uncontrolled heart rate, and possible need for amiodarone drip, she will be transferred to the ICU. Plan / VTE VTE Prophylaxis Ordered?: Yes Plan Plan 1. Sepsis secondary to pancolitis -GI panel sent -Ordered C.diff PCR for faster results -30kg/mL of fluid and on antibiotics -Trending lactic acid 2. Diarrhea -May be infectious diarrhea, pending GI panel -May be CDAD, pending PCR -IV hydration 3. Hypotension -Secondary to volume depletion and afib with RVR -Hydration -Rate control -May need central line for pressers 4. Afib with RVR -Will try another digoxin for a total of 0.75mg loading dose -If does not work, cardiology (Dr. Veliz) recommends trying phase 2 amiodarone drip -Holding Eliquis in case need for central line 5. Hypomagnesemia -Potassium >4 -Magnesium is 1.3 -Replete 6. DVT ppx -SCD and TEDs MARTIN CARRASCO DO Aug 05, 2020 21:42
[2020-08-05] MEDS: NS 1,000 ML IV SCH (22:00)
[2020-08-05 22:44] VITALS: BP 114/53
[2020-08-05 23:00] VITALS: BP 115/55
[2020-08-05] MEDS ORDERED: AMIODARONE HCL 360 MG in IV 1 EA IV SCH (23:00)
[2020-08-05 23:13] LABS: CLOSTRIDIUM DIFFICILE PCR POSITIVE (NEGATIVE)
[2020-08-05] MEDS: LATANOPROST 0.005% OPHTH SOLN 2.5 ML OS SCH (23:23)
[2020-08-05 23:30] VITALS: BP 109/54
[2020-08-06] VITALS (38 sets, daily range): BP systolic 78–113; BP diastolic 44–63
[2020-08-06] MEDS: VANCOMYCIN ORAL SOL 250MG/5ML ORAL SYRINGE PO SCH ×4 (00:33→17:40)
--- NOTE | 2020-08-06 00:54 | ECGEPIP ---
[facility] - ED Test Date: 2020-08-05 Pat Name: ROSA HILL Department: Room: - Gender: Female Tooth Inspector: KERRIE : [id number] Requested By: Tc Sigala Order Number: [id number] Reading MD: Tc Paz Measurements Intervals Stanley Rate: 157 P: LA: 0 QRS: 46 QRSD: 85 T: 254 QT: 229 QTc: 370 Interpretive Statements ATRIAL FIBRILLATIONWITH RAPID VENTRICULAR RESPONSE NSTTW ABNORMALITY(S) RATE CHANGE COMPARED TO 01/10/20 Electronically Signed on 08-06-2020 0:54:35 EST by Tc Paz
[2020-08-06] MEDS ORDERED: NS 1,000 ML IV ONE (01:45)
[2020-08-06] MEDS: ACETAMINOPHEN TAB 650MG DOSE (2X325MG) PO PRN (01:55)
[2020-08-06] MEDS: NS 1,000 ML IV SCH ×4 (02:01→21:32)
[2020-08-06] MEDS ORDERED: VANCOMYCIN HCL 1,000 MG, VIAL MATE ADAPTER 1 EACH in D5W 250 ML IV ONE (03:15)
[2020-08-06] MEDS ORDERED: VANCOMYCIN HCL 1,000 MG, VIAL MATE ADAPTER 1 EACH in D5W 250 ML IV SCH (03:30)
[2020-08-06] MEDS ORDERED: SODIUM CHLORIDE 0.9% 1000ML IV ONE (04:45)
[2020-08-06 05:35] LABS: HEMATOCRIT 33.4 % (36.0-47.0); MEAN CORPUSCULAR HEMOGLOBIN 30.4 pg (27.0-33.0); MEAN CORPUSCULAR HGB CONC 32.3 g/dl (32.0-36.5); MEAN CORPUSCULAR VOLUME 94.1 fl (80.0-96.0); PLATELET COUNT, AUTOMATED 187 10^3/uL (150-450); RED BLOOD COUNT 3.55 10^6/uL (4.00-5.40); WHITE BLOOD COUNT 13.8 10^3/uL (4.0-10.0)
[2020-08-06 05:42] LABS: HEMOGLOBIN 10.8 g/dl (12.0-15.5)
[2020-08-06 05:54] LABS: CALCIUM LEVEL 7.2 MG/DL (8.8-10.2); CREATININE FOR GFR 1.24 MG/DL (0.55-1.30); GLOMERULAR FILTRATION RATE 43.5 (>32); POTASSIUM SERUM 3.7 MEQ/L (3.5-5.1)
[2020-08-06] MEDS: AMIODARONE HCL 360 MG in IV 1 EA IV SCH ×2 (05:56→16:33)
[2020-08-06] MEDS: OCUVITE 1 TAB PO SCH ×2 (08:40→08:50)
[2020-08-06] MEDS ORDERED: APIXABAN 2.5 MG TAB (ELIQUIS) PO SCH (09:00)
[2020-08-06] MEDS ORDERED: AZITHROMYCIN INJ 500 MG, VIAL MATE ADAPTER 1 EACH in D5W 250 ML IV SCH (09:00)
[2020-08-06] MEDS: ONDANSETRON 4MG/2ML VIAL IV PRN ×2 (09:01→14:14)
[2020-08-06] MEDS: METOPROLOL TART 25 MG TABLET PO SCH ×3 (09:20→21:00)
[2020-08-06] MEDS ORDERED: CEFEPIME HCL 2 GM in D5W 50 ML IV SCH (10:00)
--- NOTE | 2020-08-06 13:42 | IPNPDOC ---
Subjective Date Seen The patient was seen on 08/06/20. Subjective Chief Complaint/HPI Mrs. Hansen is an 89 year old female with atrial fibrillation who is here for abdominal pain with nausea and diarrhea, found to have C.diff associated diarrhea and atrial fibrillation with RVR. Last night, loading dose digoxin (total of 0.75mg) did not control heart rate. Patient was started on amiodarone drip (without bolus). Heart rate improved from the 140s to 120s. This morning, she was transitioned to phase 3 of amiodarone drip and heart rate increased. Officially consulted cardiology. Recommended starting patient on metoprolol now that her blood pressure improved with the fluids. Otherwise, when I spoke with the patient. She was still having abdominal cramping and diarrhea. Denies fever or dysuria. Objective Physical Examination General Exam: Positive: Alert, Cooperative Eye Exam: Positive: EOMI; Negative: Sclera icteric ENT Exam: Positive: Atraumatic Neck Exam: Positive: Supple Chest Exam: Positive: Clear to auscultation; Negative: Rales, Rhonchi, Wheezing Heart Exam: Positive: Tachycardic, Irregular Rhythm Abdomen Exam: Positive: Normal bowel sounds, Soft, Tenderness (mild) Extremity Exam: Negative: Edema Neuro Exam: Positive: Cranial Nerves 3-12 NL Psych Exam: Positive: Mental status NL, Mood NL Assessment /Plan Assessment Mrs. Hansen is an 89 year old female with atrial fibrillation who is here for abdominal pain with nausea and diarrhea, found to have C.diff associated diarrhea and atrial fibrillation with RVR. She had taken antibiotics for sinus infection prior to the start of diarrhea which may have precipitated this event. Will need 10 days of PO antibiotics. Due to the diarrhea, it had made her fluid depleted and electrolyte depleted and instigated the atrial fibrillation with RVR. Giving her IVF for fluid depletion. On amiodarone drip and metoprolol for atrial fibrillation. Cardiology consulted. Recommendations appreciated. Plan/VTE VTE Prophylaxis Ordered?: Yes Plan 1. Sepsis secondary to C.diff diarrhea -C.diff PCR positive -Had antibiotics for sinusitis prior to start of diarrhea. -IV fluids and antibiotics targeting source of infection 2. C.diff diarrhea -Pending GI panel, C.diff PCR positive. -PO Vancomycin for 10 days -IVF 3. Hypotension -Secondary to volume depletion and afib with RVR -IVF -Rate control 4. Afib with RVR -Loading dose of digoxin (0.75mg total) did not control heart rate -IV amiodarone and PO metoprolol controlling rate -Cardiology following recommendations appreciated. -On Eliquis 5. Electrolyte depletions/Hypomagnesemia -Keep K >4 and Mag <2 -Replete and follow 6. Systolic CHF -Last echocardiogram was 12/2019 -EF was 40-45% -Stable -Continue Metoprolol -Holding Lasix due to diarrhea and hypotension 7. DVT ppx -On Eliquis VS, I&O, 24H, Fishbone Vital Signs/I&O Vital Signs Date Time Temp Pulse Resp B/P (MAP) Pulse Ox O2 Delivery O2 Flow Rate FiO2 08/06/20 12:00 97.8 94 18 93/54 (67) 97 Room Air I&O- Last 24 Hours up to 6 AM 08/06/20 06:00 Intake Total 7100 ml Output Total 100 ml Balance 7000 ml Laboratory Data 24H LABS Laboratory Tests 2 08/05/20 14:17: Immature Granulocyte % (Auto) 0.9, Neutrophils (%) (Auto) 85.5H, Lymphocytes (%) (Auto) 2.9L, Monocytes (%) (Auto) 10.3H, Eosinophils (%) (Auto) 0.0, Basophils (%) (Auto) 0.4, Neutrophils # (Auto) 14.1H, Lymphocytes # (Auto) 0.5L, Monocytes # (Auto) 1.7H, Eosinophils # (Auto) 0.0, Basophils # (Auto) 0.1, Nucleated Red Blood Cells % (auto) 0.0, Anion Gap 11, Glomerular Filtration Rate 31.7L, Calcium Level 8.9, Magnesium Level 1.3L, Total Bilirubin 0.6, Direct Bilirubin 0.2, Aspartate Amino Transf (AST/SGOT) 15, Alanine Aminotransferase (ALT/SGPT) 15, Alkaline Phosphatase 58, Total Creatine Kinase 41, Creatine Kinase MB 1.5, Creatine Kinase MB Relative Index 3.66, Troponin I < 0.02, Total Protein 5.6L, Albumin 2.8L, Albumin/Globulin Ratio 1.0L, Thyroid Stimulating Hormone (TSH) 0.596 08/05/20 14:35: Lactic Acid Level 2.5*H 08/05/20 14:46: Coronavirus (COVID-19)(PCR) NEGATIVE 08/05/20 17:23: Prothrombin Time 15.5H, Prothromb Time International Ratio 1.20, Activated Partial Thromboplast Time 35.0, Urine Color JARROD, Urine Appearance CLOUDYH, Urine pH 5.0, Urine Specific [place] 1.025, Urine Protein 2+H, Urine Glucose (Auto)(UA) NEGATIVE, Urine Ketones (Auto) TRACEH, Urine Blood NEGATIVE, Urine Nitrite NEGATIVE, Urine Bilirubin 1+H, Urine Urobilinogen 2.0H, Urine Leukocyte Esterase (Auto) NEGATIVE, Urine WBC (Auto) 5H, Urine RBC (Auto) 2, Urine Hyaline Casts (Auto) 11, Urine Bacteria (Auto) 1+H, Urine Squamous Epithelial Cells 1, Urine Amorphous Sediment (Auto) SMALLH, Urine Mucus (Auto) SMALL, Urine Sperm (Auto) , C-Reactive Protein, Quantitative 18.60H, Amylase Level 26 08/05/20 19:26: Lactic Acid Level 2.7*H 08/05/20 19:31: Clostridium difficile [id number] PRESUMPTIVE NEGATIVE, Clostridium difficile Toxin (PCR) POSITIVEA 08/06/20 00:31: Lactic Acid Followup at 4 Hours 3.4*H 08/06/20 05:08: Nucleated Red Blood Cells % (auto) 0.0, Anion Gap 7L, Glomerular Filtration Rate 43.5, Calcium Level 7.2#L, Magnesium Level 2.0 08/06/20 07:50: Methicillin-Resist S.aureus DNA PCR NOT DETECTED CBC/BMP Laboratory Tests 08/05/20 14:17 08/06/20 05:08 Microbiology Microbiology 08/05/20 Campylobacter (PCR), Received Pending 08/05/20 Clostridium difficile Toxin A&B PCR, Received Pending 08/05/20 Plesiomonas shigelloides (PCR), Received Pending 08/05/20 Salmonella (PCR)(NUHA), Received Pending 08/05/20 Vibrio Species (PCR), Received Pending 08/05/20 Vibrio Cholerae (PCR), Received Pending 08/05/20 Yersinia enterocolitica (PCR), Received Pending 08/05/20 Enteroaggregative E. coli (PCR), Received Pending 08/05/20 Enteropathogenic E. coli (PCR), Received Pending 08/05/20 Enterotoxigenic E. coli (PCR), Received Pending 08/05/20 E. coli Shiga-like Toxin (PCR), Received Pending 08/05/20 Escherichia coli 0157 (PCR), Received Pending 08/05/20 Enteroinvasive E. coli/Shigella PCR, Received Pending 08/05/20 Cryptosporidium (PCR), Received Pending 08/05/20 Cyclospora cayetanensis (PCR), Received Pending 08/05/20 Entamoeba histolytica (PCR), Received Pending 08/05/20 Giardia lamblia (PCR), Received Pending 08/05/20 Adenovirus Type F 40/41 (PCR), Received Pending 08/05/20 Astrovirus (PCR), Received Pending 08/05/20 Norovirus GI/GII (PCR), Received Pending 08/05/20 Rotavirus A (PCR), Received Pending 08/05/20 Sapovirus I/II/IV/V (PCR), Received Pending 08/05/20 Urine Culture, Received Pending 08/05/20 Blood Culture, Received Pending 08/05/20 Blood Culture, Received Pending MARTIN CARRASCO DO Aug 06, 2020 13:42
[2020-08-06] MEDS ORDERED: POTASSIUM CHLORIDE 10 MEQ SR TABLET PO ONE (13:45)
[2020-08-06] MEDS ORDERED: NS 500 ML IV ONE ×2 (15:15→20:15)
[2020-08-06] MEDS ORDERED: DIGOXIN 0.25 MG TAB PO STA (16:25)
[2020-08-06 20:58] LABS: CALCIUM LEVEL 7.9 MG/DL (8.8-10.2); CREATININE FOR GFR 1.25 MG/DL (0.55-1.30); GLOMERULAR FILTRATION RATE 43.1 (>32); POTASSIUM SERUM 4.4 MEQ/L (3.5-5.1)
[2020-08-06] MEDS: LATANOPROST 0.005% OPHTH SOLN 2.5 ML OS SCH (21:32)
[2020-08-06] MEDS ORDERED: VANCOMYCIN HCL 750 MG, VIAL MATE ADAPTER 1 EACH in D5W 250 ML IV SCH (22:00)
[2020-08-07] VITALS (24 sets, daily range): BP systolic 80–122; BP diastolic 45–71
[2020-08-07] MEDS: VANCOMYCIN ORAL SOL 250MG/5ML ORAL SYRINGE PO SCH ×4 (00:15→17:38)
[2020-08-07] MEDS: NS 1,000 ML IV SCH ×2 (04:41→12:41)
[2020-08-07 04:43] LABS: HEMATOCRIT 36.2 % (36.0-47.0); HEMOGLOBIN 11.5 g/dl (12.0-15.5); MEAN CORPUSCULAR HEMOGLOBIN 30.3 pg (27.0-33.0); MEAN CORPUSCULAR HGB CONC 31.8 g/dl (32.0-36.5); MEAN CORPUSCULAR VOLUME 95.5 fl (80.0-96.0); PLATELET COUNT, AUTOMATED 204 10^3/uL (150-450); RED BLOOD COUNT 3.79 10^6/uL (4.00-5.40); WHITE BLOOD COUNT 17.4 10^3/uL (4.0-10.0)
[2020-08-07 05:24] LABS: CALCIUM LEVEL 7.6 MG/DL (8.8-10.2); CREATININE FOR GFR 1.15 MG/DL (0.55-1.30); DIGOXIN LEVEL 2.9 NG/ML (0.5-2.0); GLOMERULAR FILTRATION RATE 47.4 (>32); MAGNESIUM LEVEL 1.9 MG/DL (1.8-2.4); POTASSIUM SERUM 4.5 MEQ/L (3.5-5.1)
--- NOTE | 2020-08-07 08:53 | CR ---
DATE OF CONSULTATION: 08/06/2020 REFERRING PHYSICIAN: Anibal Quick DO REASON FOR CONSULTATION: Hypotension, atrial fibrillation. HISTORY OF PRESENT ILLNESS: The patient is an 89-year-old female who is known to me. 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 She presented to [facility] ER yesterday after a several day history of severe diarrhea, nausea, and vomiting that was triggered by administration of oral antibiotics for presumed sinusitis. She was also noted to be in atrial fibrillation with rapid ventricular response. Initially her heart rate improved after she received a total of 0.75 mg of digoxin, but it was very short lived and consequently, she was started on IV amiodarone without bolus, and this morning low-dose beta-blockers were added. In spite of this intervention, she continues to be relatively hypotensive and tachycardic with heart rate running around 110 to 130 beats per minute. She does not have any awareness of the palpitations. She continues to have multiple runs of diarrhea. She is making urine, but Zamarripa catheter is not in place so it is not completely clear how good is her urine output. At the time of my evaluation around 8:10 p.m., the patient looks relatively comfortable. She does not appear to be in any obvious distress. She still complains about abdominal discomfort, but nausea has improved. She feels mildly short of breath with activity, but does not have any sensation of palpitations or chest pain. PAST MEDICAL HISTORY: 1. 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 2. Glaucoma. 3. History of congestive heart failure in the setting of cardiomyopathy with subsequent recovery of LV systolic function. PAST SURGICAL HISTORY: 1. Hip replacement. 2. Two C-sections. 3. Appendectomy. 4. Tonsillectomy. FAMILY HISTORY: No longer relevant. SOCIAL HISTORY: Patient used to smoke for many years, but quit three years ago. Does not drink alcohol. She is a . OUTPATIENT MEDICATIONS: - Eliquis 2.5 twice a day - furosemide 20 mg a day - metoprolol tartrate 12.5 twice a day - multivitamin - potassium - vitamin A, C, E, zinc and copper combination REVIEW OF SYSTEMS: She denies any cardiac symptoms prior to onset of diarrhea, which was exactly a week ago. There is no history of GI bleeding. There is no history of epistaxis. She did not have any PND or orthopnea. She is uncertain about fevers. No peripheral edema. No syncopal events. The rest as per HPI or otherwise negative. LABORATORY DATA: From this morning 5 o'clock, WBC count 13.8, hemoglobin 10.8, hematocrit 33, platelet count 187,000. Basic metabolic panel sodium 136, potassium 3.7, BUN 23, creatinine 1.2, GFR 43, glucose 141. She has several lactate levels drawn. The initial one was 2.5 that was yesterday at 1435 that darian to 2.7 at 1926 and up to 3.4 shortly after midnight. There has not been another one drawn since. CRP was 18.6. Liver function tests were normal. Cardiac enzymes including troponin and CK were normal. Albumin was 2.8 and TSH was 0.6. Urinalysis had trace ketones, but no blood. DIAGNOSTIC STUDIES: Her stool sample was positive for C diff toxin and the CT of the abdomen was consistent with pancolitis. Chest x-ray did not reveal any cardiomyopathy or congestive heart failure, but it is consistent with COPD. Electrocardiogram revealed the presence of atrial fibrillation with rapid ventricular response and nonspecific repolarization abnormalities. ASSESSMENT AND PLAN: The patient is an 89-year-old female who presents with Clostridium difficile colitis with severe diarrhea, nausea, and vomiting. She was profoundly dehydrated on presentation. As a complication, she developed atrial fibrillation with rapid ventricular response and is also hypotensive. So far, she received 1 mg of p.o. digoxin plus has been slowly loaded with intravenous (IV) amiodarone and continues to receive beta-guillermo blood pressure allowing, which she missed most of the doses. At this point, I still believe that she is relatively dehydrated and I will give her another half liter bolus of normal saline. I am going to obtain another basic metabolic panel because it seems likely to me that her electrolytes are going to be deranged. I will also obtain follow-up lactate level. I am going to ignore her tachycardia at this moment. She already was loaded with digoxin and I am going to obtain a level tomorrow morning. We will continue also running amiodarone. I do not believe that she will tolerate additional doses of beta-guillermo with current blood pressure. I believe that the focus at this point should be of her colitis. It is very likely that the tachycardia is purely a secondary phenomenon. Management of colitis remains with primary care team. I will also discontinue her Eliquis because in this setting, she is certainly at higher risk of bleeding complication than embolic events. It hopefully will be only temporary. I will follow the patient with you. AKUA
--- NOTE | 2020-08-07 08:58 | IPN ---
DATE: 08/07/2020 SUBJECTIVE: This patients condition unfortunately did not much improve overnight. She continues to have diarrhea. She had a total of 10 bowel movements yesterday and already four bowel movements today by 8 o'clock in the morning. She continues to have abdominal discomfort and also nausea. Consequently, her oral intake has been minimal. Denies any chest pain. She does get short of breath with activity, but no at rest. OBJECTIVE: VITAL SIGNS: Blood pressure 100/50 and has been hovering around the same numbers throughout the night, occasionally dipping into the high 80s systolic. Heart rate between 90 to 130, atrial fibrillation. She has been afebrile. Saturation is in the mid to high 90s on room air. The recorded intake yesterday was almost 7 liters. The output is documented only as the number of bowel movements. She usually has urine output at the same time, which is difficult to measure; so, we do not have a clear cut idea how much fluid she has lost. Weight is 65.8 kg, which is almost 7 kg up from yesterday. GENERAL: She is alert, oriented, and appropriate. NECK: Her jugular venous pressure (JVP) today is elevated, it was low yesterday, but today I appreciate about 5 cm elevation above the clavicle. LUNGS: Reveal inspiratory crackles bilaterally about one-third up and both bases appear slightly diminished. HEART: Reveals somewhat remote heart sounds with irregular tachycardia. I do not appreciate any obvious murmur or gallop. ABDOMEN: Diffusely tender, but is soft and there is no clear cut guarding. EXTREMITIES: About 1+ edema to mid shins. NEUROLOGIC: She is intact. LABORATORY DATA: CBC this morning revealed WBC count 17.4, hemoglobin 11.5, hematocrit 36, and platelet count 204,000. Basic metabolic panel sodium 139, potassium 4.5, BUN 23, creatinine 1.15, which is slightly better than yesterday for a total GFR of 47 and glucose 89. Magnesium is 1.9. Digoxin level came back quite high at 2.9. ASSESSMENT AND PLAN: The patient is an 89-year-old female with history of atrial fibrillation and history of likely tachycardia-induced cardiomyopathy with subsequent recovery of left ventricular (LV) systolic function, who presents with approximately one week history of diarrhea that turns out to be Clostridium difficile. It was likely triggered by antibiotics that she was prescribed for sinusitis by her primary care physician. She presented hypotensive and with rapid ventricular response that has been difficult to control. She received amiodarone intravenously and she completed the loading protocol. She also received a total of 1 mg of p.o. digoxin and intermittently was also getting metoprolol, even though most of the doses had to be held due to hypotension. Currently, her heart rate is reasonable and fluctuates between about 100 to 130 and her blood pressure remains soft. She already has signs of volume overloaded state with elevated jugular venous pressure (JVP) and developing peripheral edema, so she certainly does not appear dehydrated. At this point, I would not change any management. Because of the high digoxin level, I think we will wait at least one more day before giving her any additional doses of medications and hopefully, her heart rate does not get overly tachycardic. I discontinued Eliquis yesterday because I feel that the risk of bleeding in the setting of active colitis is actually markedly increased and probably much higher than potential risk of stroke that is resulting from a few days without Eliquis. Otherwise, we will continue supportive therapy. MTDD
[2020-08-07] MEDS: METOPROLOL TART 25 MG TABLET PO SCH ×4 (09:00→16:23)
[2020-08-07] MEDS: OCUVITE 1 TAB PO SCH (09:08)
[2020-08-07] MEDS: ACETAMINOPHEN TAB 650MG DOSE (2X325MG) PO PRN ×3 (09:11→20:17)
--- NOTE | 2020-08-07 11:53 | IPNPDOC ---
Subjective Date Seen The patient was seen on 08/07/20. Subjective Chief Complaint/HPI Mrs. Hansen is an 89 year old female with atrial fibrillation who is here for abdominal pain with nausea and diarrhea, found to have C.diff associated diarrhea and atrial fibrillation with RVR. Yesterday afternoon, she was given another dose of digoxin to try to control heart rate. This morning, her digoxin level was high. Heart rate this morning was in the 140s, but after first dose of Lopressor PO, her heart rate decreased. Blood pressure also decreased. She has 10 episodes of BM yesterday Otherwise, this morning, she still has abdominal cramps. She feels that her BM are fewer. Appetite is still poor. Otherwise, denies fever, chest pain, or abdominal pain. Reports dyspnea with exertion Objective Physical Examination General Exam: Positive: Alert, Cooperative Eye Exam: Positive: EOMI; Negative: Sclera icteric ENT Exam: Positive: Atraumatic Neck Exam: Positive: Supple Chest Exam: Positive: Other (Bibasilar crackles) Heart Exam: Positive: Tachycardic, Irregular Rhythm Abdomen Exam: Positive: Normal bowel sounds, Soft, Tenderness (mild) Extremity Exam: Positive: Edema (bilateral pitting edema) Neuro Exam: Positive: Cranial Nerves 3-12 NL Psych Exam: Positive: Mental status NL, Mood NL Assessment /Plan Assessment Mrs. Hansen is an 89 year old female with atrial fibrillation who is here for abdominal pain with nausea and diarrhea, found to have C.diff associated diarrhea and atrial fibrillation with RVR. She had taken antibiotics for sinus infection prior to the start of diarrhea which may have precipitated this event. Will need 10 days of PO antibiotics. Due to the diarrhea, it had made her fluid depleted and electrolyte depleted and instigated the atrial fibrillation with RVR. Today, fluids were stopped as she had crackles in her lungs. She completed the amiodarone drip and cannot receive more digoxin due to elevated digoxin level. H eart rate responds to Lopressor but the blood pressure also responds to the Lopressor. Cardiology consulted. Recommendations appreciated. Plan/VTE VTE Prophylaxis Ordered?: Yes Plan 1. Sepsis secondary to C.diff diarrhea -C.diff PCR positive -Had antibiotics for sinusitis prior to start of diarrhea which may have instigated the C.diff diarrhea 2. C.diff associated diarrhea -Pending GI panel, C.diff PCR positive. -PO Vancomycin for 10 days 3. Hypotension -Secondary to a combination of sepsis, diarrhea, a.fib with RVR, and Lopressor -Rate control -Monitor as she is becoming fluid overloaded 4. Afib with RVR -Completed IV amio dose -Was loaded with digoxin, but dig level now elevated -PO Lopressor helps with HR control, but also drops the BP -Cardiology following recommendations appreciated. -Eliquis on hold due to colitis 5. Electrolyte depletions/Hypomagnesemia -Keep K >4 and Mag <2 -Replete and follow 6. Systolic CHF -Last echocardiogram was 12/2019 -EF was 40-45% -Stable -Continue Metoprolol -Holding Lasix due to diarrhea and hypotension 7. DVT ppx -Eliquis held due to colitis. SCD and TEDs VS, I&O, 24H, Fishbone Vital Signs/I&O Vital Signs Date Time Temp Pulse Resp B/P (MAP) Pulse Ox O2 Delivery O2 Flow Rate FiO2 08/07/20 09:19 137 122/58 08/07/20 06:00 20 Room Air 08/07/20 04:00 98.0 95 I&O- Last 24 Hours up to 6 AM 08/07/20 06:00 Intake Total 5356 ml Output Total 275 ml Balance 5081 ml Laboratory Data 24H LABS Laboratory Tests 2 08/06/20 20:25: Anion Gap 8, Glomerular Filtration Rate 43.1, Lactic Acid Level 1.6, Calcium Lev el 7.9L 08/07/20 04:30: Anion Gap 6L, Glomerular Filtration Rate 47.4, Calcium Level 7.6L, Nucleated Red Blood Cells % (auto) 0.0, Magnesium Level 1.9, Digoxin Level 2.9*H CBC/BMP Laboratory Tests 08/06/20 20:25 08/07/20 04:30 Microbiology Microbiology 08/05/20 Campylobacter (PCR), Received Pending 08/05/20 Clostridium difficile Toxin A&B PCR, Received Pending 08/05/20 Plesiomonas shigelloides (PCR), Received Pending 08/05/20 Salmonella (PCR)(NUHA), Received Pending 08/05/20 Vibrio Species (PCR), Received Pending 08/05/20 Vibrio Cholerae (PCR), Received Pending 08/05/20 Yersinia enterocolitica (PCR), Received Pending 08/05/20 Enteroaggregative E. coli (PCR), Received Pending 08/05/20 Enteropathogenic E. coli (PCR), Received Pending 08/05/20 Enterotoxigenic E. coli (PCR), Received Pending 08/05/20 E. coli Shiga-like Toxin (PCR), Received Pending 08/05/20 Escherichia coli 0157 (PCR), Received Pending 08/05/20 Enteroinvasive E. coli/Shigella PCR, Received Pending 08/05/20 Cryptosporidium (PCR), Received Pending 08/05/20 Cyclospora cayetanensis (PCR), Received Pending 08/05/20 Entamoeba histolytica (PCR), Received Pending 08/05/20 Giardia lamblia (PCR), Received Pending 08/05/20 Adenovirus Type F 40/41 (PCR), Received Pending 08/05/20 Astrovirus (PCR), Received Pending 08/05/20 Norovirus GI/GII (PCR), Received Pending 08/05/20 Rotavirus A (PCR), Received Pending 08/05/20 Sapovirus I/II/IV/V (PCR), Received Pending 08/05/20 Urine Culture - Final, Complete Escherichia Coli 08/05/20 Blood Culture - Preliminary, Resulted No growth after 24 hours . All specim... 08/05/20 Blood Culture - Preliminary, Resulted No growth after 24 hours . All specim... MARTIN CARRASCO DO Aug 07, 2020 11:53
--- NOTE | 2020-08-07 17:13 | ECGEPIP ---
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
[2020-08-07] MEDS: LATANOPROST 0.005% OPHTH SOLN 2.5 ML OS SCH (20:45)
[2020-08-08] VITALS: BP_SYST 104; BP_SYST 110; BP_DIAS 57; BP_DIAS 59
[2020-08-08] MEDS: VANCOMYCIN ORAL SOL 250MG/5ML ORAL SYRINGE PO SCH ×4 (01:12→18:52)
[2020-08-08] MEDS: METOPROLOL TART 25 MG TABLET PO SCH ×4 (01:17→17:01)
[2020-08-08 04:00] VITALS: BP 107/55
[2020-08-08 04:46] LABS: HEMATOCRIT 39.1 % (36.0-47.0); HEMOGLOBIN 12.2 g/dl (12.0-15.5); MEAN CORPUSCULAR HEMOGLOBIN 29.5 pg (27.0-33.0); MEAN CORPUSCULAR HGB CONC 31.2 g/dl (32.0-36.5); MEAN CORPUSCULAR VOLUME 94.7 fl (80.0-96.0); PLATELET COUNT, AUTOMATED 240 10^3/uL (150-450); RED BLOOD COUNT 4.13 10^6/uL (4.00-5.40); WHITE BLOOD COUNT 16.8 10^3/uL (4.0-10.0)
[2020-08-08 05:21] LABS: CALCIUM LEVEL 8.1 MG/DL (8.8-10.2); CREATININE FOR GFR 1.22 MG/DL (0.55-1.30); GLOMERULAR FILTRATION RATE 44.3 (>32); POTASSIUM SERUM 4.5 MEQ/L (3.5-5.1)
[2020-08-08] MEDS: ACETAMINOPHEN TAB 650MG DOSE (2X325MG) PO PRN ×2 (06:29→21:22)
[2020-08-08 08:00] VITALS: BP 109/53
[2020-08-08] MEDS: OCUVITE 1 TAB PO SCH (09:06)
[2020-08-08] MEDS: APIXABAN 2.5 MG TAB (ELIQUIS) PO SCH ×2 (09:06→21:17)
[2020-08-08 12:00] VITALS: BP 109/56
--- NOTE | 2020-08-08 12:25 | IPNPDOC ---
Subjective Date Seen The patient was seen on 08/08/20. Subjective Chief Complaint/HPI Mrs. Hansen is an 89 year old female with atrial fibrillation who is here for abdominal pain with nausea and diarrhea, found to have C.diff associated diarrhea and atrial fibrillation with RVR. This morning, she continues to have abdominal cramping, nausea, and poor appetite. Her stool is still liquid like, but starting to have form. Frequency has decreased from 10 two days ago to 8 yesterday. Denies fever or chest pain. Reports dyspnea with exertion. Objective Physical Examination General Exam: Positive: Alert, Cooperative Eye Exam: Positive: EOMI; Negative: Sclera icteric ENT Exam: Positive: Atraumatic Neck Exam: Positive: Supple Chest Exam: Positive: Other (Bibasilar crackles) Heart Exam: Positive: Tachycardic, Irregular Rhythm Abdomen Exam: Positive: Normal bowel sounds, Soft, Tenderness (mild) Extremity Exam: Positive: Edema (bilateral pitting edema) Neuro Exam: Positive: Cranial Nerves 3-12 NL Psych Exam: Positive: Mental status NL, Mood NL Assessment /Plan Assessment Mrs. Hansen is an 89 year old female with atrial fibrillation who is here for abdominal pain with nausea and diarrhea, found to have C.diff associated diarrhea and atrial fibrillation with RVR. She had taken antibiotics for sinus infection prior to the start of diarrhea which may have precipitated this event. Will need 10 days of PO antibiotics. Due to the diarrhea, it had made her fluid depleted and electrolyte depleted and may have contributed to the atrial fibrillation with RVR. Otherwise, her heart rate is starting to be more controlled. Her Lopressor was changed from 25mg BID to 12.5mg q6hrs to decrease the hypotensive side effect of metoprolol. Cardiology consulted, recommendations appreciated. Plan/VTE VTE Prophylaxis Ordered?: Yes Plan 1. Sepsis secondary to C.diff diarrhea -C.diff PCR positive -Had antibiotics for sinusitis prior to start of diarrhea which may have instigated the C.diff diarrhea 2. C.diff associated diarrhea -Pending GI panel, C.diff PCR positive. -PO Vancomycin for 10 days 3. Hypotension -Secondary to a combination of sepsis, diarrhea, a.fib with RVR, and Lopressor -Rate control -Decreased strength of Lopressor with increased frequency 4. Afib with RVR -Completed IV amio dose -Was loaded with digoxin, but dig level now elevated -PO Lopressor helps with HR control, but also drops the BP -Cardiology following recommendations appreciated. -Eliquis on hold due to colitis 5. Electrolyte depletions/Hypomagnesemia -Keep K >4 and Mag <2 -Replete and follow 6. Systolic CHF -Last echocardiogram was 12/2019 -EF was 40-45% -Stable -Continue Metoprolol -Holding Lasix due to diarrhea and hypotension 7. DVT ppx -Eliquis held due to colitis. SCD and TEDs VS, I&O, 24H, Fishbone Vital Signs/I&O Vital Signs Date Time Temp Pulse Resp B/P (MAP) Pulse Ox O2 Delivery O2 Flow Rate FiO2 08/08/20 08:00 97.3 75 20 109/53 (71) 92 Room Air I&O- Last 24 Hours up to 6 AM 08/08/20 06:00 Intake Total 2370 ml Balance 2370 ml Laboratory Data 24H LABS Laboratory Tests 2 08/08/20 04:31: Nucleated Red Blood Cells % (auto) 0.0, Anion Gap 10, Glomerular Filtration Rate 44.3, Calcium Level 8.1L, Magnesium Level 2.0 CBC/BMP Laboratory Tests 08/08/20 04:31 Microbiology Microbiology 08/05/20 Campylobacter (PCR) - Final, Complete 08/05/20 Clostridium difficile Toxin A&B PCR - Final, Complete 08/05/20 Plesiomonas shigelloides (PCR) - Final, Complete 08/05/20 Salmonella (PCR)(NUHA) - Final, Complete 08/05/20 Vibrio Species (PCR) - Final, Complete 08/05/20 Vibrio Cholerae (PCR) - Final, Complete 08/05/20 Yersinia enterocolitica (PCR) - Final, Complete 08/05/20 Enteroaggregative E. coli (PCR) - Final, Complete 08/05/20 Enteropathogenic E. coli (PCR) - Final, Complete 08/05/20 Enterotoxigenic E. coli (PCR) - Final, Complete 08/05/20 E. coli Shiga-like Toxin (PCR) - Final, Complete 08/05/20 Escherichia coli 0157 (PCR) - Final, Complete 08/05/20 Enteroinvasive E. coli/Shigella PCR - Final, Complete 08/05/20 Cryptosporidium (PCR) - Final, Complete 08/05/20 Cyclospora cayetanensis (PCR) - Final, Complete 08/05/20 Entamoeba histolytica (PCR) - Final, Complete 08/05/20 Giardia lamblia (PCR) - Final, Complete 08/05/20 Adenovirus Type F 40/41 (PCR) - Final, Complete 08/05/20 Astrovirus (PCR) - Final, Complete 08/05/20 Norovirus GI/GII (PCR) - Final, Complete 08/05/20 Rotavirus A (PCR) - Final, Complete 08/05/20 Sapovirus I/II/IV/V (PCR) - Final, Complete 08/05/20 Urine Culture - Final, Complete Escherichia Coli 08/05/20 Blood Culture - Preliminary, Resulted No Growth after 48 hours. All Specime... 08/05/20 Blood Culture - Preliminary, Resulted No Growth after 48 hours. All Specime... MARTIN CARRASCO DO Aug 08, 2020 12:25
--- NOTE | 2020-08-08 15:10 | IPN ---
DATE: 08/08/2020 Mrs. Hansen is feeling a little better. The frequency of diarrhea is decreasing. She is a little less nauseous. She still gets short of breath with activity. Denies any chest discomfort. There has not been any blood in her stools. Her vital signs are also better. Her blood pressure and heart rate both slowed down and around 6:30 this morning she converted into a regular rhythm. I am not completely certain whether this represents atrial flutter or sinus rhythm from telemetry tracings. Vital signs: Blood pressure 107/55, heart rate from 70s to 100-teens; since about 6:30 in the 70s. The maximum temperature was reported as 97.3 and saturation 94% on room air. Her fluid balance yesterday was not properly recorded on the output side because of her stools but she had total of eight bowel movements yesterday and she already has five reported today. Weight was recorded 67.1 kg, which is an additional kilogram and 300 grams up since yesterday. She is alert and oriented and appropriate. Her jugular venous pressure (JVP) is no longer elevated. Lungs are reasonably clear even though there are still occasional crackles over the bases. Heart exam reveals regular rhythm. I do not appreciate any gallop, rub or murmur. Abdomen is still diffusely tender but soft; no obvious guarding. She has elastic stockings today and I do not appreciate any edema. LABORATORY: CBC: WBC count 16.8, hemoglobin 12.2, hematocrit 39, platelet count 240. On basic metabolic, sodium 141, potassium 4.5, BUN 26, creatinine 1.2 and glucose 83. ASSESSMENT AND PLAN: Mrs. Hansen is an 89-year-old female who presented with Clostridium difficile diarrhea complicated by atrial fibrillation with rapid ventricular response (RVR). As far as the diarrhea is concerned, it is improving even though she still has numerous bowel movements but she feels that the belly is a little less sore and she has not had any blood in her stools. Her hemoglobin is holding steady so I am going to restart her Eliquis. Management of diarrhea otherwise remains with the hospitalist team. The second problem was atrial fibrillation with rapid ventricular response. Initially, we had trouble controlling the rate due to hypotension but I believe that at this point we have accomplished our goal. I will leave her only on low- dose metoprolol at this point. If there are relapses, we may need to go back to amiodarone again. I think it is likely that she is now in sinus rhythm even though it is unclear from telemetry strips; it is conceivable that she is either in junctional rhythm or atrial flutter and I am going to request a 12-lead EKG. Her digoxin level yesterday was very high but there were no bradycardias. Overall, I am quite optimistic and I believe that her condition is improving. I stopped her IV fluids yesterday but if she cannot maintain adequate oral intake, the maintenance fluids may need to be restarted. MTDD
[2020-08-08 16:39] VITALS: BP 143/59
[2020-08-08] MEDS ORDERED: METOPROLOL TART 25 MG TABLET PO ONE (21:00)
[2020-08-08] MEDS ORDERED: AMIODARONE HCL 150 MG in IV 1 EA IV STA (21:01)
[2020-08-08] MEDS: LATANOPROST 0.005% OPHTH SOLN 2.5 ML OS SCH (21:19)
[2020-08-08 21:50] VITALS: BP 128/69
[2020-08-09] VITALS (9 sets, daily range): BP systolic 110–142; BP diastolic 55–82
[2020-08-09] MEDS: METOPROLOL TART 25 MG TABLET PO SCH ×4 (01:07→17:09)
[2020-08-09] MEDS: VANCOMYCIN ORAL SOL 250MG/5ML ORAL SYRINGE PO SCH ×4 (01:07→17:09)
[2020-08-09 06:07] LABS: HEMATOCRIT 39.3 % (36.0-47.0); HEMOGLOBIN 12.7 g/dl (12.0-15.5); MEAN CORPUSCULAR HEMOGLOBIN 30.5 pg (27.0-33.0); MEAN CORPUSCULAR HGB CONC 32.3 g/dl (32.0-36.5); MEAN CORPUSCULAR VOLUME 94.2 fl (80.0-96.0); PLATELET COUNT, AUTOMATED 281 10^3/uL (150-450); RED BLOOD COUNT 4.17 10^6/uL (4.00-5.40); WHITE BLOOD COUNT 16.2 10^3/uL (4.0-10.0)
[2020-08-09 06:29] LABS: CALCIUM LEVEL 8.4 MG/DL (8.8-10.2); CREATININE FOR GFR 1.1 MG/DL (0.55-1.30); GLOMERULAR FILTRATION RATE 49.9 (>32); MAGNESIUM LEVEL 1.9 MG/DL (1.8-2.4); POTASSIUM SERUM 4.2 MEQ/L (3.5-5.1)
[2020-08-09] MEDS ORDERED: METOPROLOL TART 25 MG TABLET PO ONE (08:30)
[2020-08-09] MEDS: APIXABAN 2.5 MG TAB (ELIQUIS) PO SCH ×2 (08:38→20:47)
[2020-08-09] MEDS: OCUVITE 1 TAB PO SCH (09:00)
[2020-08-09] MEDS: ACETAMINOPHEN TAB 650MG DOSE (2X325MG) PO PRN ×2 (11:16→20:57)
[2020-08-09] MEDS ORDERED: PILL CUTTER 1 EACH XX PRN (11:30)
--- NOTE | 2020-08-09 12:31 | IPNPDOC ---
Subjective Date Seen The patient was seen on 08/09/20. Subjective Chief Complaint/HPI Mrs. Hansen is an 89 year old female with atrial fibrillation who is here for abdominal pain with nausea and diarrhea, found to have C.diff associated diarrhea and atrial fibrillation with RVR. She feels that the diarrhea has improved, but she still had about 10 BM yesterday. Abdominal cramping still present with nausea and poor appetite. Denies fever or chest pain. Has dyspnea on exertion Objective Physical Examination General Exam: Positive: Alert, Cooperative Eye Exam: Positive: EOMI; Negative: Sclera icteric ENT Exam: Positive: Atraumatic Neck Exam: Positive: Supple Chest Exam: Positive: Other (Bibasilar crackles) Heart Exam: Positive: Tachycardic, Irregular Rhythm Abdomen Exam: Positive: Normal bowel sounds, Soft, Tenderness (mild) Extremity Exam: Positive: Edema (bilateral pitting edema) Neuro Exam: Positive: Cranial Nerves 3-12 NL Psych Exam: Positive: Mental status NL, Mood NL Assessment /Plan Assessment Mrs. Hansen is an 89 year old female with atrial fibrillation who is here for abdominal pain with nausea and diarrhea, found to have C.diff associated diarrhea and atrial fibrillation with RVR. She had taken antibiotics for sinus infection prior to the start of diarrhea which may have precipitated this event. Will need 10 days of PO antibiotics. Due to the diarrhea, it had made her fluid depleted and electrolyte depleted and may have contributed to the atrial fibrillation with RVR. Otherwise, heart rate is intermittently controlled. Lopressor was changed from 25mg BID to 12.5mg q6hrs to decrease the hypotensive side effect of metoprolol. Cardiology consulted, recommendations appreciated. Plan/VTE VTE Prophylaxis Ordered?: Yes Plan 1. Sepsis secondary to C.diff diarrhea -C.diff PCR positive -Had antibiotics for sinusitis prior to start of diarrhea which may have instig ated the C.diff diarrhea 2. C.diff associated diarrhea -Pending GI panel, C.diff PCR positive. -PO Vancomycin for 10 days 3. Hypotension -Secondary to a combination of sepsis, diarrhea, a.fib with RVR, and Lopressor -Rate control -Decreased strength of Lopressor with increased frequency 4. Afib with RVR -Completed IV amio dose -Was loaded with digoxin, but dig level now elevated -PO Lopressor helps with HR control, but also drops the BP -Cardiology following recommendations appreciated. -Eliquis on hold due to colitis 5. Electrolyte depletions/Hypomagnesemia -Keep K >4 and Mag <2 -Replete and follow 6. Systolic CHF -Last echocardiogram was 12/2019 -EF was 40-45% -Stable -Continue Metoprolol -Holding Lasix due to diarrhea and hypotension 7. DVT ppx -Eliquis held due to colitis. SCD and TEDs VS, I&O, 24H, Fishbone Vital Signs/I&O Vital Signs Date Time Temp Pulse Resp B/P (MAP) Pulse Ox O2 Delivery O2 Flow Rate FiO2 08/09/20 11:09 154 110/70 (83) 08/09/20 08:00 97.5 18 94 Room Air I&O- Last 24 Hours up to 6 AM 08/09/20 06:00 Intake Total 210 ml Output Total 40 ml Balance 170 ml Laboratory Data 24H LABS Laboratory Tests 2 08/09/20 05:34: Nucleated Red Blood Cells % (auto) 0.0, Anion Gap 9, Glomerular Filtration Rate 49.9, Calcium Level 8.4L, Magnesium Level 1.9 CBC/BMP Laboratory Tests 08/09/20 05:34 Microbiology Microbiology 08/05/20 Campylobacter (PCR) - Final, Complete 08/05/20 Clostridium difficile Toxin A&B PCR - Final, Complete 08/05/20 Plesiomonas shigelloides (PCR) - Final, Complete 08/05/20 Salmonella (PCR)(NUHA) - Final, Complete 08/05/20 Vibrio Species (PCR) - Final, Complete 08/05/20 Vibrio Cholerae (PCR) - Final, Complete 08/05/20 Yersinia enterocolitica (PCR) - Final, Complete 08/05/20 Enteroaggregative E. coli (PCR) - Final, Complete 08/05/20 Enteropathogenic E. coli (PCR) - Final, Complete 08/05/20 Enterotoxigenic E. coli (PCR) - Final, Complete 08/05/20 E. coli Shiga-like Toxin (PCR) - Final, Complete 08/05/20 Escherichia coli 0157 (PCR) - Final, Complete 08/05/20 Enteroinvasive E. coli/Shigella PCR - Final, Complete 08/05/20 Cryptosporidium (PCR) - Final, Complete 08/05/20 Cyclospora cayetanensis (PCR) - Final, Complete 08/05/20 Entamoeba histolytica (PCR) - Final, Complete 08/05/20 Giardia lamblia (PCR) - Final, Complete 08/05/20 Adenovirus Type F 40/41 (PCR) - Final, Complete 08/05/20 Astrovirus (PCR) - Final, Complete 08/05/20 Norovirus GI/GII (PCR) - Final, Complete 08/05/20 Rotavirus A (PCR) - Final, Complete 08/05/20 Sapovirus I/II/IV/V (PCR) - Final, Complete 08/05/20 Urine Culture - Final, Complete Escherichia Coli 08/05/20 Blood Culture - Preliminary, Resulted No Growth after 72 hours. All specime... 08/05/20 Blood Culture - Preliminary, Resulted No Growth after 72 hours. All specime... MARTIN CARRASCO DO Aug 09, 2020 12:27
[2020-08-09] MEDS ORDERED: METOPROLOL TART 12.5 MG PER 1/2 TAB PO STA (13:27)
[2020-08-09] MEDS ORDERED: AMIODARONE HCL 150 MG in IV 1 EA IV ONE (14:00)
[2020-08-09] MEDS ORDERED: SLF 3 ML SYR IV PRN (14:45)
--- NOTE | 2020-08-09 15:23 | ECGEPIP ---
[facility] Test Date: 2020-08-08 Pat Name: ROSA HILL Department: Room: [place] [address] Gender: Female [employer]: EVY : 1930 Requested By: Joel Veliz Order Number: [id number] Reading MD: Mitchell Dawson Measurements Intervals [place] Rate: 76 P: OR: 0 QRS: 3 QRSD: 89 T: -24 QT: 258 QTc: 291 Interpretive Statements Atrial flutter with controlled ventricular response Low QRS complex voltage in the limb leads Delayed anterior R wave progression Nonspecific ST-T wave abnormalities No significant change since prior tracing of 08/07/2020 Electronically Signed on 08-09-2020 15:23:25 EST by Mitchell Dawson
[2020-08-09] MEDS: SLF 3 ML SYR IV SCH (20:47)
[2020-08-09] MEDS: LATANOPROST 0.005% OPHTH SOLN 2.5 ML OS SCH (20:47)
[2020-08-10] VITALS: BP 132/61
[2020-08-10] MEDS: VANCOMYCIN ORAL SOL 250MG/5ML ORAL SYRINGE PO SCH ×5 (00:14→23:40)
[2020-08-10] MEDS: METOPROLOL TART 25 MG TABLET PO SCH ×5 (00:16→23:40)
[2020-08-10] MEDS: ACETAMINOPHEN TAB 650MG DOSE (2X325MG) PO PRN ×3 (00:41→21:26)
[2020-08-10 04:00] VITALS: BP 128/59
[2020-08-10] MEDS: SLF 3 ML SYR IV SCH ×3 (06:27→21:26)
[2020-08-10 06:29] LABS: HEMATOCRIT 38.4 % (36.0-47.0); HEMOGLOBIN 12.1 g/dl (12.0-15.5); MEAN CORPUSCULAR HEMOGLOBIN 29.4 pg (27.0-33.0); MEAN CORPUSCULAR HGB CONC 31.5 g/dl (32.0-36.5); MEAN CORPUSCULAR VOLUME 93.4 fl (80.0-96.0); PLATELET COUNT, AUTOMATED 315 10^3/uL (150-450); RED BLOOD COUNT 4.11 10^6/uL (4.00-5.40); WHITE BLOOD COUNT 13.9 10^3/uL (4.0-10.0)
[2020-08-10 06:48] LABS: BLOOD UREA NITROGEN 23 MG/DL (7-18); CALCIUM LEVEL 8.5 MG/DL (8.8-10.2); CARBON DIOXIDE LEVEL 19 MEQ/L (21-32); CHLORIDE LEVEL 115 MEQ/L (98-107); CREATININE FOR GFR 0.86 MG/DL (0.55-1.30); GLOMERULAR FILTRATION RATE > 60.0 (>32); GLUCOSE, FASTING 85 MG/DL (70-100); MAGNESIUM LEVEL 1.8 MG/DL (1.8-2.4); POTASSIUM SERUM 4.2 MEQ/L (3.5-5.1); SODIUM LEVEL 142 MEQ/L (136-145)
[2020-08-10 08:00] VITALS: BP 139/64
[2020-08-10] MEDS: APIXABAN 2.5 MG TAB (ELIQUIS) PO SCH ×2 (09:51→20:12)
[2020-08-10] MEDS: OCUVITE 1 TAB PO SCH (09:51)
[2020-08-10 12:00] VITALS: BP 149/67
--- NOTE | 2020-08-10 15:10 | IPNPDOC ---
Subjective Date Seen The patient was seen on 08/10/20. Subjective Chief Complaint/HPI Mrs. Hansen is an 89 year old female with atrial fibrillation who is here for abdominal pain with nausea and diarrhea, found to have C.diff associated diarrhea and atrial fibrillation with RVR. Today, she feels frustrated. Still still has diarrhea. Although the count looks decreased, she says she has multiple fecal incontinence. Otherwise denies fever, chest pain, or dysuria. Objective Physical Examination General Exam: Positive: Alert, Cooperative Eye Exam: Positive: EOMI; Negative: Sclera icteric ENT Exam: Positive: Atraumatic Neck Exam: Positive: Supple Chest Exam: Positive: Other (Bibasilar crackles) Heart Exam: Positive: Tachycardic, Irregular Rhythm Abdomen Exam: Positive: Normal bowel sounds, Soft, Tenderness (mild) Extremity Exam: Positive: Edema (bilateral pitting edema) Neuro Exam: Positive: Cranial Nerves 3-12 NL Psych Exam: Positive: Mental status NL, Mood NL Assessment /Plan Assessment Mrs. Hansen is an 89 year old female with atrial fibrillation who is here for abdominal pain with nausea and diarrhea, found to have C.diff associated reno rrhea and atrial fibrillation with RVR. She had taken antibiotics for sinus infection prior to the start of diarrhea which may have precipitated this event. It may be her C.diff associated diarrhea that made her fluid depleted and electrolyte depleted and contributed to the atrial fibrillation with RVR. Her A.fib with RVR is better controlled with Metoprol 25mg q6hrs. Cardiology following, recommendations appreciated. It has been 5 days without improvement in the diarrhea. Will start fidaxomicin with the vancomycin for the C.diff. Plan/VTE VTE Prophylaxis Ordered?: Yes Plan 1. Sepsis secondary to C.diff diarrhea -C.diff PCR positive -Had antibiotics for sinusitis prior to start of diarrhea which may have instigated the C.diff diarrhea 2. C.diff associated diarrhea -Pending GI panel, C.diff PCR positive. -PO Vancomycin has not improved symptoms for 5 days. Adding on Fidaxomicin 3. Hypotension -Secondary to a combination of sepsis, diarrhea, a.fib with RVR, and Lopressor -Resolved 4. Afib with RVR -Controlled with Lopressor 25mg q6hr -Cardiology following recommendations appreciated. -Eliquis on hold due to colitis 5. Electrolyte depletions/Hypomagnesemia -Keep K >4 and Mag <2 -Replete and follow 6. Systolic CHF -Last echocardiogram was 12/2019 -EF was 40-45% -Stable -Continue Metoprolol -Holding Lasix due to diarrhea and hypotension 7. DVT ppx -Eliquis held due to colitis. SCD and TEDs VS, I&O, 24H, Fishbone Vital Signs/I&O Vital Signs Date Time Temp Pulse Resp B/P (MAP) Pulse Ox O2 Delivery O2 Flow Rate FiO2 08/10/20 12:00 97.3 81 18 149/67 (94) 100 Room Air I&O- Last 24 Hours up to 6 AM 08/10/20 06:00 Intake Total 696 ml Output Total 0 ml Balance 696 ml Laboratory Data 24H LABS Laboratory Tests 2 08/10/20 05:54: Nucleated Red Blood Cells % (auto) 0.0, Anion Gap 8, Glomerular Filtration Rate > 60.0, Calcium Level 8.5L, Magnesium Level 1.8 CBC/BMP Laboratory Tests 08/10/20 05:54 Microbiology Microbiology 08/05/20 Campylobacter (PCR) - Final, Complete 08/05/20 Clostridium difficile Toxin A&B PCR - Final, Complete 08/05/20 Plesiomonas shigelloides (PCR) - Final, Complete 08/05/20 Salmonella (PCR)(NUHA) - Final, Complete 08/05/20 Vibrio Species (PCR) - Final, Complete 08/05/20 Vibrio Cholerae (PCR) - Final, Complete 08/05/20 Yersinia enterocolitica (PCR) - Final, Complete 08/05/20 Enteroaggregative E. coli (PCR) - Final, Complete 08/05/20 Enteropathogenic E. coli (PCR) - Final, Complete 08/05/20 Enterotoxigenic E. coli (PCR) - Final, Complete 08/05/20 E. coli Shiga-like Toxin (PCR) - Final, Complete 08/05/20 Escherichia coli 0157 (PCR) - Final, Complete 08/05/20 Enteroinvasive E. coli/Shigella PCR - Final, Complete 08/05/20 Cryptosporidium (PCR) - Final, Complete 08/05/20 Cyclospora cayetanensis (PCR) - Final, Complete 08/05/20 Entamoeba histolytica (PCR) - Final, Complete 08/05/20 Giardia lamblia (PCR) - Final, Complete 08/05/20 Adenovirus Type F 40/41 (PCR) - Final, Complete 08/05/20 Astrovirus (PCR) - Final, Complete 08/05/20 Norovirus GI/GII (PCR) - Final, Complete 08/05/20 Rotavirus A (PCR) - Final, Complete 08/05/20 Sapovirus I/II/IV/V (PCR) - Final, Complete 08/05/20 Urine Culture - Final, Complete Escherichia Coli 08/05/20 Blood Culture - Preliminary, Resulted No Growth after 72 hours. All specime... 08/05/20 Blood Culture - Preliminary, Resulted No Growth after 72 hours. All specime... MARTIN CARRASCO DO Aug 10, 2020 15:10
[2020-08-10] MEDS ORDERED: MAG SULF 1GM/100ML (MAG RUN) 1 GM in IV 1 EA IV ONE (15:15)
[2020-08-10 16:00] VITALS: BP 140/71
[2020-08-10 20:00] VITALS: BP 129/78
[2020-08-10] MEDS: FIDAXOMICIN 200 MG TAB (DIFICID) PO SCH (20:12)
[2020-08-10] MEDS: LATANOPROST 0.005% OPHTH SOLN 2.5 ML OS SCH (20:12)
[2020-08-11] VITALS: BP 133/62
[2020-08-11 04:00] VITALS: BP 150/67
[2020-08-11 05:52] LABS: HEMATOCRIT 38.1 % (36.0-47.0); HEMOGLOBIN 12.6 g/dl (12.0-15.5); MEAN CORPUSCULAR HEMOGLOBIN 30.5 pg (27.0-33.0); MEAN CORPUSCULAR HGB CONC 33.1 g/dl (32.0-36.5); MEAN CORPUSCULAR VOLUME 92.3 fl (80.0-96.0); PLATELET COUNT, AUTOMATED 356 10^3/uL (150-450); RED BLOOD COUNT 4.13 10^6/uL (4.00-5.40); WHITE BLOOD COUNT 14.2 10^3/uL (4.0-10.0)
[2020-08-11] MEDS: VANCOMYCIN ORAL SOL 250MG/5ML ORAL SYRINGE PO SCH ×3 (05:53→18:31)
[2020-08-11] MEDS: METOPROLOL TART 25 MG TABLET PO SCH ×3 (05:55→18:32)
[2020-08-11] MEDS: SLF 3 ML SYR IV SCH ×3 (05:56→20:41)
[2020-08-11 06:13] LABS: BLOOD UREA NITROGEN 19 MG/DL (7-18); CALCIUM LEVEL 8.4 MG/DL (8.8-10.2); CARBON DIOXIDE LEVEL 21 MEQ/L (21-32); CHLORIDE LEVEL 114 MEQ/L (98-107); CREATININE FOR GFR 0.79 MG/DL (0.55-1.30); GLOMERULAR FILTRATION RATE > 60.0 (>32); GLUCOSE, FASTING 86 MG/DL (70-100); MAGNESIUM LEVEL 1.8 MG/DL (1.8-2.4); POTASSIUM SERUM 3.9 MEQ/L (3.5-5.1); SODIUM LEVEL 143 MEQ/L (136-145)
[2020-08-11 07:41] VITALS: BP 137/65
[2020-08-11] MEDS: OCUVITE 1 TAB PO SCH (09:07)
[2020-08-11] MEDS: FIDAXOMICIN 200 MG TAB (DIFICID) PO SCH ×2 (09:07→20:41)
[2020-08-11] MEDS: APIXABAN 2.5 MG TAB (ELIQUIS) PO SCH ×2 (09:08→20:41)
[2020-08-11 11:37] VITALS: BP 117/69
--- NOTE | 2020-08-11 13:29 | ECGEPIP ---
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
[2020-08-11 15:43] VITALS: BP 148/67
--- NOTE | 2020-08-11 16:50 | IPN ---
DATE: 08/10/2020 Mrs. Hansen appears rather discouraged. She said that she continues to have loose stools, and she is frequently incontinent, which makes her very angry and somewhat dejected. Denies any chest pain. She does admit that she feels short of breath with activity, which is not appreciably changed. No chest pain. Telemetry monitoring reveals that she is principally in sinus rhythm with brief episodes of atrial fibrillation with rapid ventricular response. Vital signs: Blood pressure 149/67, heart rate from 60s to 80s, predominantly sinus rhythm. She is afebrile. Saturation is 100% on room air. Fluid balance is somewhat difficult to appreciate due to her multiple bowel movements, but weight is 63.9 kg, which is down from yesterday and even more down from the day before. Her oral cavity is completely parched. Jugular venous pressure (JVP), though, appears about 2 cm above clavicle, even though there is significant respiratory variation. Lungs reveal fair air movement. I do not appreciate any wheezes, crackles, or rhonchi. Heart exam reveals regular rhythm without obvious gallop, rub, or murmur. Abdomen is diffusely tender but soft. No guarding. Extremities have trace edema. Neurologically, she is intact. Speech is intact, and she is certainly alert and oriented and appropriate. LABORATORY DATA: CBC: WBC count 13.9, hemoglobin 12.1, hematocrit 38.4, and platelet count 315,000. Basic metabolic panel is normal. ASSESSMENT AND PLAN: Mrs. Hansen is an 89-year-old female who presented with Clostridium (C) difficile and complicating atrial fibrillation with rapid ventricular response. Initially she was hypotensive, and her heart rate was difficult to control, but with intravenous (IV) hydration, initially administration of digoxin and amiodarone and later after recover of blood pressure, also beta blockers, her condition improved. She is currently in sinus rhythm. She continues to be anticoagulated with apixaban. As far as the C. difficile colitis is concerned, management per hospitalist team. She is improving but not fast enough, and she seems to be a little dejected. I am also concerned about the fact that she stays in bed without much ambulation and consequently is in danger for atelectasis a and potentially resulting pneumonia. I encourage incentive spirometry, and I asked nursing staff to get her at a minimum to chair at least for some period of time. Otherwise, I do not have any new cardiac recommendations. Certainly, recovery of sinus rhythm is encouraging. MTDD
[2020-08-11] MEDS: ACETAMINOPHEN TAB 650MG DOSE (2X325MG) PO PRN (18:31)
[2020-08-11 20:00] VITALS: BP 142/65
[2020-08-11] MEDS: LATANOPROST 0.005% OPHTH SOLN 2.5 ML OS SCH (20:42)
--- NOTE | 2020-08-11 20:47 | IPNPDOC ---
Subjective Date Seen The patient was seen on 08/11/20. Subjective Chief Complaint/HPI Mrs. Hansen is an 89 year old female with atrial fibrillation who is here for abdominal pain with nausea and diarrhea, found to have C.diff associated diarrhea and atrial fibrillation with RVR. This morning, she still has diarrhea. She does not feel like there is much improvement in abdominal cramping or diarrhea. Otherwise, denies fever, chest pain, or dysuria. Objective Physical Examination General Exam: Positive: Alert, Cooperative Eye Exam: Positive: EOMI; Negative: Sclera icteric ENT Exam: Positive: Atraumatic Neck Exam: Positive: Supple Chest Exam: Positive: Other (Bibasilar crackles) Heart Exam: Positive: Rate Normal, Regular Rhythm Abdomen Exam: Positive: Normal bowel sounds, Soft, Tenderness (mild) Extremity Exam: Positive: Edema (bilateral pitting edema) Neuro Exam: Positive: Cranial Nerves 3-12 NL Psych Exam: Positive: Mental status NL, Mood NL Assessment /Plan Assessment Mrs. Hansen is an 89 year old female with atrial fibrillation who is here for abdominal pain with nausea and diarrhea, found to have C.diff associated diarrhea and atrial fibrillation with RVR. She had taken antibiotics for sinus infection prior to the start of diarrhea which may have precipitated this event. It may be her C.diff associated diarrhea that made her fluid depleted and electrolyte depleted and contributed to the atrial fibrillation with RVR. Cardiology following for a.fib with RVR in the setting of hypotension. She has not broken out of a.fib. Continue with Lopressor 25mg q6hrs. C.diff diarrhea has not improved with 5 days of PO vancomycin. Started Fidaxomicin on day 5. Pending improvement in symptoms Plan/VTE VTE Prophylaxis Ordered?: Yes Plan 1. Sepsis secondary to C.diff diarrhea -C.diff PCR positive -Had antibiotics for sinusitis prior to start of diarrhea which may have instiga radha the C.diff diarrhea 2. C.diff associated diarrhea -GI panel positive for C.diff, C.diff PCR positive. -PO Vancomycin has not improved symptoms for 5 days. Added Fidaxomicin on day 5 3. Hypotension -Secondary to a combination of sepsis, diarrhea, a.fib with RVR, and Lopressor -Resolved 4. Afib with RVR -Controlled with Lopressor 25mg q6hr -Cardiology following recommendations appreciated. -Eliquis on hold due to colitis -Afib under control 5. Electrolyte depletions/Hypomagnesemia -Keep K >4 and Mag <2 -Replete and follow 6. Systolic CHF -Last echocardiogram was 12/2019 -EF was 40-45% -Stable -Continue Metoprolol -Holding Lasix due to diarrhea and hypotension 7. DVT ppx -Eliquis held due to colitis. SCD and TEDs Disposition: If symptoms don't improve by tomorrow morning, will touch base with ID. Will need rehab VS, I&O, 24H, Fishbone Vital Signs/I&O Vital Signs Date Time Temp Pulse Resp B/P (MAP) Pulse Ox O2 Delivery O2 Flow Rate FiO2 08/11/20 18:32 85 141/63 08/11/20 15:43 97.4 18 95 Room Air I&O- Last 24 Hours up to 6 AM 08/11/20 05:59 Intake Total 510 ml Output Total 0 ml Balance 510 ml Laboratory Data 24H LABS Laboratory Tests 2 08/11/20 05:02: Nucleated Red Blood Cells % (auto) 0.0, Anion Gap 8, Glomerular Filtration Rate > 60.0, Calcium Level 8.4L, Magnesium Level 1.8 CBC/BMP Laboratory Tests 08/11/20 05:02 Microbiology Microbiology 08/05/20 Campylobacter (PCR) - Final, Complete 08/05/20 Clostridium difficile Toxin A&B PCR - Final, Complete 08/05/20 Plesiomonas shigelloides (PCR) - Final, Complete 08/05/20 Salmonella (PCR)(NUHA) - Final, Complete 08/05/20 Vibrio Species (PCR) - Final, Complete 08/05/20 Vibrio Cholerae (PCR) - Final, Complete 08/05/20 Yersinia enterocolitica (PCR) - Final, Complete 08/05/20 Enteroaggregative E. coli (PCR) - Final, Complete 08/05/20 Enteropathogenic E. coli (PCR) - Final, Complete 08/05/20 Enterotoxigenic E. coli (PCR) - Final, Complete 08/05/20 E. coli Shiga-like Toxin (PCR) - Final, Complete 08/05/20 Escherichia coli 0157 (PCR) - Final, Complete 08/05/20 Enteroinvasive E. coli/Shigella PCR - Final, Complete 08/05/20 Cryptosporidium (PCR) - Final, Complete 08/05/20 Cyclospora cayetanensis (PCR) - Final, Complete 08/05/20 Entamoeba histolytica (PCR) - Final, Complete 08/05/20 Giardia lamblia (PCR) - Final, Complete 08/05/20 Adenovirus Type F 40/41 (PCR) - Final, Complete 08/05/20 Astrovirus (PCR) - Final, Complete 08/05/20 Norovirus GI/GII (PCR) - Final, Complete 08/05/20 Rotavirus A (PCR) - Final, Complete 08/05/20 Sapovirus I/II/IV/V (PCR) - Final, Complete 08/05/20 Urine Culture - Final, Complete Escherichia Coli 08/05/20 Blood Culture - Final, Complete NO GROWTH AFTER 5 DAYS 08/05/20 Blood Culture - Final, Complete NO GROWTH AFTER 5 DAYS MARTIN CARRASCO DO Aug 11, 2020 20:47
[2020-08-12] MEDS: METOPROLOL TART 25 MG TABLET PO SCH ×4 (00:52→17:37)
[2020-08-12] MEDS: VANCOMYCIN ORAL SOL 250MG/5ML ORAL SYRINGE PO SCH ×2 (00:52→04:55)
[2020-08-12 04:00] VITALS: BP 138/63
[2020-08-12] MEDS: ACETAMINOPHEN TAB 650MG DOSE (2X325MG) PO PRN ×2 (04:59→22:24)
[2020-08-12] MEDS: SLF 3 ML SYR IV SCH ×3 (04:59→22:11)
[2020-08-12 06:29] LABS: HEMATOCRIT 38.3 % (36.0-47.0); HEMOGLOBIN 12.4 g/dl (12.0-15.5); MEAN CORPUSCULAR HEMOGLOBIN 29.9 pg (27.0-33.0); MEAN CORPUSCULAR HGB CONC 32.4 g/dl (32.0-36.5); MEAN CORPUSCULAR VOLUME 92.3 fl (80.0-96.0); PLATELET COUNT, AUTOMATED 373 10^3/uL (150-450); RED BLOOD COUNT 4.15 10^6/uL (4.00-5.40); WHITE BLOOD COUNT 16.3 10^3/uL (4.0-10.0)
[2020-08-12 06:55] LABS: BLOOD UREA NITROGEN 17 MG/DL (7-18); CALCIUM LEVEL 8.6 MG/DL (8.8-10.2); CARBON DIOXIDE LEVEL 21 MEQ/L (21-32); CHLORIDE LEVEL 112 MEQ/L (98-107); CREATININE FOR GFR 0.63 MG/DL (0.55-1.30); GLOMERULAR FILTRATION RATE > 60.0 (>32); GLUCOSE, FASTING 79 MG/DL (70-100); MAGNESIUM LEVEL 1.6 MG/DL (1.8-2.4); POTASSIUM SERUM 3.4 MEQ/L (3.5-5.1); SODIUM LEVEL 143 MEQ/L (136-145)
[2020-08-12 08:00] VITALS: BP 133/60
[2020-08-12] MEDS: FIDAXOMICIN 200 MG TAB (DIFICID) PO SCH ×2 (08:10→22:10)
[2020-08-12] MEDS: APIXABAN 2.5 MG TAB (ELIQUIS) PO SCH ×2 (08:10→22:10)
[2020-08-12] MEDS: MAG SULF 1GM/100ML (MAG RUN) 1 GM in IV 1 EA IV SCH ×4 (08:10→11:52)
[2020-08-12] MEDS: OCUVITE 1 TAB PO SCH (08:10)
[2020-08-12] MEDS ORDERED: POTASSIUM CHLORIDE 10 MEQ SR TABLET PO ONE (09:00)
[2020-08-12 12:00] VITALS: BP 140/65
--- NOTE | 2020-08-12 13:19 | IPNPDOC ---
Text Note Date of Service The patient was seen on 08/12/20. NOTE SUBJECTIVE: 89 year old female with a hx of atrial fibrillation who presented with abdominal pain with nausea and diarrhea, found to have C.diff associated diarrhea and atrial fibrillation with RVR. Patient states she is feeling frustrated this morning as her symptoms have not improved. She reports many episodes of watery stool daily. She is unsure how many episodes she is having but states it is at least ten times a day, likely more. She denies blood in stool. No fevers overnight. OBJECTIVE: VITAL SIGNS: See below GENERAL: Alert, comfortable, in no acute distress HEENT: Normocephalic, atraumatic, EOMI, moist mucous membranes NECK: Supple, trachea midline, no lymphadenopathy, no JVD CARDIOVASCULAR: Regular rate and rhythm, normal S1 and S2 RESPIRATORY: Clear to auscultation bilaterally with equal air entry bilaterally. No wheezing, rhonchi, or rales. ABDOMEN: Mildly tender to palpation, more so in the periumbilical area. Soft, nondistended, bowel sounds present, no masses or hepatosplenomegaly appreciated. EXTREMITIES: No cyanosis. Bilateral pedal edema. NEUROLOGIC: Alert and oriented x3 to person, place and time. No focal deficits appreciated PSYCHIATRIC: Mood and affect appropriate ASSESSMENT/PLAN: 89 year old female with a hx of atrial fibrillation who presented with abdominal pain with nausea and diarrhea, found to have C.diff associated diarrhea and atrial fibrillation with RVR, now in sinus rhythm but with persistent diarrhea. # Sepsis secondary to C.diff diarrhea -Fever and elevated WBC on presentation. Lactic acid trended down. -suspected GI source due to diarrhea, C.diff PCR positive -Had antibiotics for sinusitis prior to start of diarrhea which may have instigated the C.diff diarrhea # C.diff associated diarrhea -GI panel positive for C.diff, C.diff PCR positive. -Initially on oral Vancomycin, had not improved symptoms for 5 days, Fidaxomicin was added on 08/10. -Oral vancomycin discontinued today, continue fidaxomicin day #3. -ID consulted, appreciate recommendations. # Afib with RVR -Controlled with Lopressor 25mg q6hr. Eliquis on hold due to colitis -Cardiology consulted, recommendations appreciated. -Currently under adequate control, in sinus rhythm on TM. # Electrolyte depletions/Hypomagnesemia -monitor electrolytes daily and replete as indicated -continues to require potassium and magnesium supplementation likely due to GI losses # Systolic CHF -currently remains stable -Last echocardiogram was 12/2019,EF was 40-45% -Continue Metoprolol. Holding Lasix due to diarrhea and hypotension DVT prophylaxis: SCD and TEDs. Eliquis held due to colitis. Disposition: pending symptomatic improvement and ID consult VS,Fishbone, I+O VS, Fishbone, I+O Laboratory Tests 08/12/20 05:56 Vital Signs Date Time Temp Pulse Resp B/P (MAP) Pulse Ox O2 Delivery O2 Flow Rate FiO2 08/12/20 11:52 71 140/65 08/12/20 08:00 97.4 17 94 Room Air I&O- Last 24 Hours up to 6 AM 08/12/20 06:00 Intake Total 510 ml Output Total 0 ml Balance 510 ml GME ATTESTATION GME ATTESTATION My faculty preceptor for this patient encounter was physically present during the encounter and was fully available. All aspects of the patient interview, examination, medical decision making process, and medical care plan development were reviewed and approved by the faculty preceptor. The faculty preceptor is aware and concurs with the plan as stated in the body of this note and will attest to such by his/her cosignature. ATTENDING NOTE I, Anibal Quick, saw and evaluated the patient independently from the resident. I have discussed the case with the resident and reviewed the document. I agree with the findings and the plan of care as documented in the resident's note. JENIFER VEGA D.O. Aug 12, 2020 12:05 ANIBAL QUICK DO Aug 12, 2020 19:16
[2020-08-12 20:00] VITALS: BP 140/65
[2020-08-12] MEDS: LATANOPROST 0.005% OPHTH SOLN 2.5 ML OS SCH (22:11)
[2020-08-12] MEDS: CHOLESTYRAMINE 4 GM PWD PKT PO SCH (22:23)
[2020-08-13 04:00] VITALS: BP 131/61
[2020-08-13 06:15] LABS: HEMATOCRIT 35.8 % (36.0-47.0); HEMOGLOBIN 12.1 g/dl (12.0-15.5); MEAN CORPUSCULAR HEMOGLOBIN 30.9 pg (27.0-33.0); MEAN CORPUSCULAR HGB CONC 33.8 g/dl (32.0-36.5); MEAN CORPUSCULAR VOLUME 91.6 fl (80.0-96.0); PLATELET COUNT, AUTOMATED 407 10^3/uL (150-450); RED BLOOD COUNT 3.91 10^6/uL (4.00-5.40); WHITE BLOOD COUNT 17.9 10^3/uL (4.0-10.0)
[2020-08-13] MEDS: METOPROLOL TART 25 MG TABLET PO SCH ×4 (06:22→16:59)
[2020-08-13] MEDS: SLF 3 ML SYR IV SCH ×2 (06:22→14:17)
[2020-08-13] MEDS ORDERED: POTASSIUM CHLORIDE 10 MEQ SR TABLET PO ONE ×2 (07:00→12:00)
[2020-08-13 07:42] VITALS: BP 158/71
[2020-08-13] MEDS: CHOLESTYRAMINE 4 GM PWD PKT PO SCH ×2 (07:58→21:43)
[2020-08-13] MEDS: OCUVITE 1 TAB PO SCH (10:20)
[2020-08-13] MEDS: APIXABAN 2.5 MG TAB (ELIQUIS) PO SCH ×2 (10:20→20:20)
[2020-08-13] MEDS: FIDAXOMICIN 200 MG TAB (DIFICID) PO SCH ×2 (10:21→20:20)
--- NOTE | 2020-08-13 10:29 | IPNPDOC ---
Text Note Date of Service The patient was seen on 08/13/20. NOTE SUBJECTIVE: 89 year old female with a hx of atrial fibrillation who presented with abdominal pain with nausea and diarrhea, found to have C.diff associated diarrhea and atrial fibrillation with RVR. Patient was seen and examined this morning at bedside. She states she does not seem to have improvement of the diarrhea overnight. However, based on the nursing notes she has had fewer bowel movements than prior nights. She continues to have some generalized abdominal pain, mildly improved from yesterday per patient. No blood in stool. OBJECTIVE: VITAL SIGNS: See below GENERAL: Alert, comfortable, in no acute distress HEENT: Normocephalic, atraumatic, EOMI, moist mucous membranes NECK: Supple, trachea midline, no lymphadenopathy, no JVD CARDIOVASCULAR: Regular rate and rhythm, normal S1 and S2 RESPIRATORY: Clear to auscultation bilaterally with equal air entry bilaterally. No wheezing, rhonchi, or rales. ABDOMEN: Mildly tender to palpation, more so in the periumbilical area. Soft, nondistended, bowel sounds present, no masses or hepatosplenomegaly appreciated. EXTREMITIES: No cyanosis. Bilateral pedal edema. NEUROLOGIC: Alert and oriented x3 to person, place and time. No focal deficits appreciated PSYCHIATRIC: Mood and affect appropriate ASSESSMENT/PLAN: 89 year old female with a hx of atrial fibrillation who presented with abdominal pain with nausea and diarrhea, found to have C.diff associated diarrhea and atrial fibrillation with RVR, now in sinus rhythm but with persistent diarrhea. # Sepsis secondary to C.diff diarrhea -Fever and elevated WBC on presentation. Lactic acid trended down. -suspected GI source due to diarrhea, C.diff PCR positive -Had antibiotics for sinusitis prior to start of diarrhea which may have instigated the C.diff diarrhea # C.diff associated diarrhea -GI panel positive for C.diff, C.diff PCR positive. -Initially on oral Vancomycin, had not improved symptoms for 5 days, Fidaxomicin was added on 08/10. -Oral vancomycin discontinued. continue fidaxomicin day #4. -ID consulted, appreciate recommendations. Cholestyramine added with some improvement of diarrhea. -Will consider GI consult if diarrhea continues to persist # Afib with RVR -Controlled with Lopressor 25mg q6hr. Eliquis for anticoagulation. -Cardiology consulted, recommendations appreciated. -Currently under adequate control, in sinus rhythm on TM. # Electrolyte depletion -monitor electrolytes daily and replete as indicated -continues to require potassium and magnesium supplementation likely due to GI losses # Systolic CHF -currently remains stable -Last echocardiogram was 12/2019,EF was 40-45% -Continue Metoprolol. Holding Lasix due to diarrhea and hypotension DVT prophylaxis: Eliquis for anticoagulation due to a fib Disposition: pending symptomatic improvement, PT/OT clearance VS,Fishbone, I+O VS, Fishbone, I+O Laboratory Tests 08/13/20 05:36 Vital Signs Date Time Temp Pulse Resp B/P (MAP) Pulse Ox O2 Delivery O2 Flow Rate FiO2 08/13/20 07:42 97.6 67 18 158/71 (100) 93 Room Air I&O- Last 24 Hours up to 6 AM 08/13/20 06:00 Intake Total 520 ml Output Total 0 ml Balance 520 ml GME ATTESTATION GME ATTESTATION My faculty preceptor for this patient encounter was physically present during the encounter and was fully available. All aspects of the patient interview, examination, medical decision making process, and medical care plan development were reviewed and approved by the faculty preceptor. The faculty preceptor is aware and concurs with the plan as stated in the body of this note and will attest to such by his/her cosignature. ATTENDING NOTE I, Prakash Strange, have independently examined this patient and performed my own physical exam, as well as reviewed the documentation and edited where necessary. I have discussed in detail with the resident / student the findings and plan of treatment as documented by the resident / student and edited their note. I agree with their findings and treatment plan and have edited their documentation. I will continue to follow the patient during this hospital stay. JENIFER VEGA D.O. Aug 13, 2020 10:29 PRAKASH STRANGE MD Aug 13, 2020 16:06
--- NOTE | 2020-08-13 11:25 | IPN ---
DATE: 08/11/2020 SUBJECTIVE: Mrs. Hansen unfortunately remains about the same. She continues to have a lot of bowel movements that are completely loose and she is mostly incontinent which is very aggravating to her. She also reports mild dyspnea when she moves, no chest pain. No palpitations. Telemetry monitoring reveals predominately sinus rhythm with occasional brief runs of atrial fibrillation. No pauses. PHYSICAL EXAMINATION: VITAL SIGNS: Blood pressure 137/65, heart rate is 70. She is afebrile. Saturation 95% on room air. Her weight was recorded as 64.2 kg which is essentially unchanged since yesterday. Fluid balance is difficult to document due to a large amount of bowel movements. GENERAL APPEARANCE: She is certainly alert and oriented, appropriate. She is a little discouraged by the level and duration of her symptoms. NECK: JVP is not high. LUNGS: Reasonable clear in upper two-thirds but somewhat diminished over both bases. She has prominent thoracic kyphoscoliosis. HEART: Regular rhythm with rare ectopy. I do not appreciate a gallop, rub or murmur. ABDOMEN: Soft. There is some tenderness but no guarding. Bowel sounds are present. EXTREMITIES: Trace edema. She has elastic stockings on. NEUROLOGIC: She is intact. LABORATORY: Basic metabolic panel is normal and CBC is also normal with the exception of WBC of 14.2. ASSESSMENT AND PLAN: Mrs. Hansen is an 89-year-old female who came with C. Diff colitis, severely dehydrated and also had atrial fibrillation with rapid ventricular response. Initially, she was difficult to rate control due to concomitant hypotension. With rehydration, her situation improved and the blood pressure improved as well. She was initially given Digoxin and amiodarone and eventually converted to sinus rhythm and is currently predominately in sinus rhythm with brief runs of atrial fibrillation. Blood pressure is improved as well. From a cardiac perspective, I would continue current management with metoprolol and anticoagulation only. The management of colitis remains with the primary team. She is on combination of Vancomycin and Dificid, so far even though her white cell count is a little bit improved she still remains very symptomatic. I tried to encourage her as much as possible. I am afraid with the long duration of her symptoms she will have a tendency to give in and give up. Even though she is 89 years old she is certainly very mentally sharp and otherwise relatively healthy so I am hoping that her prognosis is not that bad. I am going to sign off her care. If you need any further assistance, please call me. AKUA
[2020-08-13 12:00] VITALS: BP 157/102
--- NOTE | 2020-08-13 14:03 | CR ---
DATE OF CONSULTATION: 08/12/2020 REASON FOR CONSULTATION: I was asked to consult by Dr. Gonsalves for evaluation of severe C. difficile colitis. HISTORY OF PRESENT ILLNESS: Mrs. Hansen is a pleasant, 89-year-old female who was recently treated with ten days of cefdinir for sinusitis by her primary care provider. The patient developed diarrhea towards the end of the course of the antibiotic treatment and she finished antibiotics on Wednesday. Diarrhea got worse over the next 3-4 days. The patient was admitted on 08/05 with hypotension, tachycardia, Afib with rapid ventricular response. On the first day of admission, the patient received vancomycin and cefepime for sepsis. Stool for C. diff was positive by PCR and therefore antibiotics were discontinued and she was started on vancomycin. The patient received p.o. vancomycin at a dose of 125 mg every six hours from 08/06 to 08/12. Dificid was added on 08/10 which during 48 hours, the patient was receiving both medications. She still has incontinent stools that are mucoid. She has anorexia, no appetite. She does not have any nausea or vomiting. She denies any abdominal pain. Stool is mucoid, nonbloody, foul-smelling. The patient had a fever of 101 on August 05 that has resolved. PAST MEDICAL HISTORY: 1. History of pneumonia in December. 2. Atrial fibrillation with rapid ventricular response. 3. History of diastolic congestive heart failure. 4. Glaucoma. PAST SURGICAL HISTORY: 1. Tonsillectomy. 2. Appendectomy. 3. . 4. Bilateral cataract, lens placement in 2013. 5. Right hip replacement after fracture. ALLERGIES: PENICILLIN. FAMILY HISTORY: Nonrevealing. SOCIAL HISTORY: She quit smoking three years ago. She smoked for 67 years. She denies alcohol or drug use. She lives alone. She still drives. She has a daughter who lives across the street and is a guthrie. 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 REVIEW OF SYSTEMS: She has decreased appetite, fatigue. She had some fever and chills that have resolved. She denies any visual changes such as vertigo. No sinus pain. She has a postnasal drip. She denies any rash. She has a mild cough that she relates to the postnasal drip, no chest pain. She has mild shortness of breath. She denies any dysuria, hematuria or frequency. She is incontinent of stools. LABORATORY DATA: White count on admission was 16.4 to 17.4 and currently at 16.3. Hemoglobin 12.4, hematocrit 38.3, platelets 373. Sodium 143, potassium 3.4, chloride 112, bicarb 21, BUN 17, creatinine 0.63 glucose 79, calcium 8.6, magnesium 1.6. Digoxin level 2.9. C. diff was positive, now presumptive negative. SARS-CoV-2 was negative. MRSA screen was negative. Urinalysis had 5 white cells, 2 red cells. Urine culture was positive for E. coli. Blood cultures, two sets on 08/05 were no growth. GI panel was negative for C. diff. Imaging studies on 08/05: CT, abdomen and pelvis showed minimal calcification of the SMA, pancolitis of the proximal colon to the proximal sigmoid with deep pelvic portions of the colon obscured by hardening artifact of the right hip. No pneumatosis. No perforation or air. No gross ascites. Chest x-ray: Hyperinflation, consistent with COPD, cardiomegaly but no infiltrates seen. Nodular opacity, right upper lobe about [address] PHYSICAL EXAMINATION: She is a frail female in no acute distress, alert and oriented x3. Temperature is 98.1, pulse 71, respirations 17, blood pressure 140/65, O2 sat 93% on room air. Heart: Normal S1, S2, regular. No rubs, gallops or murmur. Lungs: A few crackles at the left base, no wheezes or rhonchi. Abdomen: Soft, nontender, no hepatosplenomegaly. Extremities: Trace edema, no clubbing or cyanosis. Neurologically: Intact. Oropharynx: Dry mucosa. Speech is intact, alert and oriented x3. IMPRESSION: This is an 89-year-old, frail female who was treated with ten days cefdinir for a sinus infection who was admitted with severe C. difficile colitis. On admission, she received vancomycin and cefepime for one dose. She was treated with vancomycin with no improvement and was switched to daptomycin but still has incontinent bowel movements and frequent bowel movement with anorexia and not feeling well. Medication list has been reviewed. The patient is not on any PPIs or any other antibiotics. PLAN: 1. Discontinue vancomycin. There is not a need for two drugs to cover her C. difficile, oral vancomycin and Dificid. 2. Start Cholestyramine 4 gm b.i.d. Please space away from all other medications as it may decrease their effectiveness. 3. The patient will need IV Zinplava as an outpatient to prevent recurrent C. diff as she has high risk due to leukocytosis due to white count of over 15,000 as well as her advanced age. Dose of Zinplava will be 10 mg/ kg= 650 mg. This will need to be given at the infusion unit the day after discharge but it will need prior authorization. [facility]
[2020-08-13 17:04] VITALS: BP 159/69
[2020-08-13] MEDS: ACETAMINOPHEN TAB 650MG DOSE (2X325MG) PO PRN (17:41)
[2020-08-13 17:58] LABS: BLOOD UREA NITROGEN 13 MG/DL (7-18); CALCIUM LEVEL 8.4 MG/DL (8.8-10.2); CARBON DIOXIDE LEVEL 24 MEQ/L (21-32); CHLORIDE LEVEL 111 MEQ/L (98-107); CREATININE FOR GFR 0.59 MG/DL (0.55-1.30); GLOMERULAR FILTRATION RATE > 60.0 (>32); GLUCOSE, FASTING 93 MG/DL (70-100); MAGNESIUM LEVEL 1.9 MG/DL (1.8-2.4); POTASSIUM SERUM 3.3 MEQ/L (3.5-5.1); SODIUM LEVEL 142 MEQ/L (136-145)
[2020-08-13] MEDS: LATANOPROST 0.005% OPHTH SOLN 2.5 ML OS SCH (20:22)
[2020-08-13 22:00] VITALS: BP 147/68
--- NOTE | 2020-08-14 00:28 | REPVR ---
PROCEDURE INFORMATION: Exam: US Duplex Right Upper Extremity Veins, Limited Exam date and time: 08/14/2020 12:10 AM Age: 89 years old Clinical indication: Edema, localized; Upper extremity, right; Additional info: Rue swelling TECHNIQUE: Imaging protocol: Real-time Duplex ultrasound of the Right Upper Extremity with 2-D velasquez scale, color Doppler flow and spectral waveform analysis with image documentation. Limited exam focused on the right upper extremity veins. COMPARISON: No relevant prior studies available. FINDINGS: Right deep veins: Unremarkable. Right internal jugular vein, subclavian vein, Axillary and brachial veins are patent throughout without thrombus. Normal Doppler waveforms. Normal compressibility and/or augmentation response. Visualized internal jugular and subclavian veins are patent. Right superficial veins: Partially occluded distal basilic vein. Visualized cephalic and proximal basilic veins are patent without thrombus. Soft tissues: Unremarkable. IMPRESSION: Partially occluded distal basilic vein. Visualized proximal basilic vein is patent without thrombus Electronically signed by: Katelyn Gonzalez On 08/14/2020 00:28:24 AM
[2020-08-14] MEDS: METOPROLOL TART 25 MG TABLET PO SCH ×4 (00:31→17:47)
[2020-08-14] MEDS ORDERED: ONDANSETRON 4 MG ORAL DISINTEGRATING TAB SL PRN (00:45)
[2020-08-14] MEDS: ACETAMINOPHEN TAB 650MG DOSE (2X325MG) PO PRN ×2 (05:52→20:19)
[2020-08-14 06:00] VITALS: BP 155/73
[2020-08-14 06:29] LABS: HEMATOCRIT 36.4 % (36.0-47.0); MEAN CORPUSCULAR HEMOGLOBIN 30.8 pg (27.0-33.0); MEAN CORPUSCULAR VOLUME 93.6 fl (80.0-96.0); PLATELET COUNT, AUTOMATED 412 10^3/uL (150-450); RED BLOOD COUNT 3.89 10^6/uL (4.00-5.40); WHITE BLOOD COUNT 14.7 10^3/uL (4.0-10.0)
[2020-08-14 06:57] LABS: BLOOD UREA NITROGEN 12 MG/DL (7-18); CALCIUM LEVEL 8.5 MG/DL (8.8-10.2); CARBON DIOXIDE LEVEL 27 MEQ/L (21-32); CHLORIDE LEVEL 112 MEQ/L (98-107); CREATININE FOR GFR 0.64 MG/DL (0.55-1.30); GLOMERULAR FILTRATION RATE > 60.0 (>32); GLUCOSE, FASTING 93 MG/DL (70-100); MAGNESIUM LEVEL 1.6 MG/DL (1.8-2.4); POTASSIUM SERUM 3.9 MEQ/L (3.5-5.1); SODIUM LEVEL 146 MEQ/L (136-145)
[2020-08-14] MEDS ORDERED: MAG SULF 1GM/100ML (MAG RUN) 1 GM in IV 1 EA IV ONE (07:15)
[2020-08-14] MEDS: CHOLESTYRAMINE 4 GM PWD PKT PO SCH ×2 (09:41→21:51)
[2020-08-14] MEDS: FIDAXOMICIN 200 MG TAB (DIFICID) PO SCH ×2 (10:16→20:18)
[2020-08-14] MEDS: OCUVITE 1 TAB PO SCH (10:16)
[2020-08-14] MEDS: APIXABAN 2.5 MG TAB (ELIQUIS) PO SCH ×2 (10:16→20:18)
--- NOTE | 2020-08-14 10:24 | IPN ---
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 She states she had a nap and thinks that her diarrhea has somewhat slowed down. She has fullness as soon as she eats three bites of her meals, but no nausea or vomiting. Abdominal pain and cramps have improved. LABORATORY DATA: Last white count 17.9, hemoglobin 12.1, platelets 407,000. Sodium 142, potassium 3.3, chloride 111, bicarb 24, BUN 13, creatinine 0.59, glucose 93, calcium 8.4. Magnesium 1.9. MEDICATIONS: 1. Fidaxomicin 200 mg p.o. b.i.d.; currently day #4. 2. Cholestyramine 2 grams p.o. b.i.d. PHYSICAL EXAMINATION: VITAL SIGNS: Temperature 98, pulse 77 regular, systolic ejection murmur 2/6, respiratory rate 18, blood pressure 157/102, O2 sat 93% on room air. HEART: Normal S1, S2 with a systolic ejection murmur 2/6 left upper sternal border. LUNGS: A few crackles at the left base. ABDOMEN: Soft, nontender, no hepatosplenomegaly. Bowel sounds normal. EXTREMITIES: +1 pitting edema bilaterally. NEUROLOGIC: Intact. Alert and oriented x3. Moves all extremities. IMPRESSION: 1. C. difficile colitis with persistent leukocytosis and stool incontinence: Seems a little better today, maybe the Cholestyramine has helped. Patient is at high risk of recurrence and will need outpatient Zinplava infusion due to her age and severity of her illness. 2. Atrial fibrillation with rapid ventricular response: Now in sinus rhythm, doing better. 3. Hypokalemia from diarrhea: Being replenished. PLAN: Continue Fidaxomicin 200 mg p.o. b.i.d., Cholestyramine 2 grams p.o. b.i.d. Patient was advised to avoid dairy products as she could be lactose intolerant with chronic diarrhea. Once the patient is ready for discharge, make sure we get prior authorization for I.V. Zinplava. She would need a dose of 650 mg times one infusion at the infusion unit after hospital discharge. [facility]
--- NOTE | 2020-08-14 11:16 | IPNPDOC ---
Text Note Date of Service The patient was seen on 08/14/20. NOTE SUBJECTIVE: 89 year old female with a hx of atrial fibrillation who presented with abdominal pain with nausea and diarrhea, found to have C.diff associated diarrhea and atrial fibrillation with RVR. Patient was seen and examined this morning at bedside. She states she has noticed less frequency of bowel movements and more formed stools. She continues to have bowel movements in bed and states it is difficult for her to get up in time when she needs to go. She continues to work with PT on strength but feels she is still weak compared to her baseline function at home. OBJECTIVE: VITAL SIGNS: See below GENERAL: Alert, comfortable, in no acute distress HEENT: Normocephalic, atraumatic, EOMI, moist mucous membranes NECK: Supple, trachea midline, no lymphadenopathy, no JVD CARDIOVASCULAR: Regular rate and rhythm, normal S1 and S2 RESPIRATORY: Clear to auscultation bilaterally with equal air entry bilaterally. No wheezing, rhonchi, or rales. ABDOMEN: Mildly tender to palpation, more so in the periumbilical area. Soft, nondistended, bowel sounds present, no masses or hepatosplenomegaly appreciated. EXTREMITIES: No cyanosis. Bilateral pedal edema. NEUROLOGIC: Alert and oriented x3 to person, place and time. No focal deficits a ppreciated PSYCHIATRIC: Mood and affect appropriate ASSESSMENT/PLAN: 89 year old female with a hx of atrial fibrillation who presented with abdominal pain with nausea and diarrhea, found to have C.diff associated diarrhea and atrial fibrillation with RVR, now in sinus rhythm but with persistent diarrhea. # C.diff associated diarrhea, improving -GI panel positive for C.diff, C.diff PCR positive. -Initially on oral Vancomycin, had not improved symptoms for 5 days, Fidaxomicin was added on 08/10. -Oral vancomycin discontinued. continue fidaxomicin day #5. -ID consulted, appreciate recommendations. Cholestyramine added with daily improvement of diarrhea. -Dr Selby recommends IV Zinplava after hospital discharge -Will consider GI consult if diarrhea does not continue to improve # Sepsis secondary to C.diff diarrhea, improved -Fever and elevated WBC on presentation. Lactic acid trended down. -suspected GI source due to diarrhea, C.diff PCR positive -Had antibiotics for sinusitis prior to start of diarrhea which may have instigated the C.diff diarrhea # Afib with RVR, resolved -likely due to dehydration from diarrhea and sepsis as discussed above -Controlled with Lopressor 25mg q6hr. Eliquis for anticoagulation. -Cardiology consulted, recommendations appreciated. -Currently under adequate control, TM was discontinued as she has maintained sinus rhythm # Electrolyte depletion 2/2 diarrhea -monitor electrolytes daily and replete as indicated -continues to require potassium and magnesium supplementation likely due to GI losses # Systolic CHF -currently remains stable -Last echocardiogram was 12/2019,EF was 40-45% -Continue Metoprolol. Holding Lasix due to diarrhea and hypotension DVT prophylaxis: Eliquis for anticoagulation due to a fib Disposition: PT/OT clearance, ARU screen for possible rehab VS,Fishbone, I+O VS, Fishbone, I+O Laboratory Tests 08/14/20 05:47 Vital Signs Date Time Temp Pulse Resp B/P (MAP) Pulse Ox O2 Delivery O2 Flow Rate FiO2 08/14/20 06:00 96.4 68 18 155/73 (100) 96 Room Air I&O- Last 24 Hours up to 6 AM 08/14/20 06:00 Intake Total 520 ml Output Total 450 ml Balance 70 ml GME ATTESTATION GME ATTESTATION My faculty preceptor for this patient encounter was physically present during t he encounter and was fully available. All aspects of the patient interview, examination, medical decision making process, and medical care plan development were reviewed and approved by the faculty preceptor. The faculty preceptor is aware and concurs with the plan as stated in the body of this note and will attest to such by his/her cosignature. ATTENDING NOTE I, Prakash Strange, have independently examined this patient and performed my own physical exam, as well as reviewed the documentation and edited where necessary. I have discussed in detail with the resident / student the findings and plan of treatment as documented by the resident / student and edited their note. I agree with their findings and treatment plan and have edited their documentation. I will continue to follow the patient during this hospital stay. JENIFER VEGA D.O. Aug 14, 2020 11:16 PRAKASH STRANGE MD Aug 14, 2020 13:00
[2020-08-14] MEDS ORDERED: DIFI200T PO (11:55)
[2020-08-14 14:00] VITALS: BP 150/70
[2020-08-14] MEDS: LATANOPROST 0.005% OPHTH SOLN 2.5 ML OS SCH (20:19)
[2020-08-14 22:00] VITALS: BP 127/61
[2020-08-15] MEDS: ACETAMINOPHEN TAB 650MG DOSE (2X325MG) PO PRN ×3 (00:57→22:02)
[2020-08-15] MEDS: METOPROLOL TART 25 MG TABLET PO SCH ×4 (00:58→18:28)
[2020-08-15 05:53] LABS: HEMATOCRIT 35.7 % (36.0-47.0); HEMOGLOBIN 11.2 g/dl (12.0-15.5); MEAN CORPUSCULAR HEMOGLOBIN 29.4 pg (27.0-33.0); MEAN CORPUSCULAR HGB CONC 31.4 g/dl (32.0-36.5); MEAN CORPUSCULAR VOLUME 93.7 fl (80.0-96.0); PLATELET COUNT, AUTOMATED 434 10^3/uL (150-450); RED BLOOD COUNT 3.81 10^6/uL (4.00-5.40); WHITE BLOOD COUNT 13.9 10^3/uL (4.0-10.0)
[2020-08-15 06:00] VITALS: BP 149/74
[2020-08-15 06:06] LABS: BLOOD UREA NITROGEN 10 MG/DL (7-18); CALCIUM LEVEL 8.1 MG/DL (8.8-10.2); CARBON DIOXIDE LEVEL 28 MEQ/L (21-32); CHLORIDE LEVEL 112 MEQ/L (98-107); CREATININE FOR GFR 0.61 MG/DL (0.55-1.30); GLOMERULAR FILTRATION RATE > 60.0 (>32); GLUCOSE, FASTING 104 MG/DL (70-100); MAGNESIUM LEVEL 1.5 MG/DL (1.8-2.4); POTASSIUM SERUM 3.5 MEQ/L (3.5-5.1); SODIUM LEVEL 145 MEQ/L (136-145)
[2020-08-15] MEDS: CHOLESTYRAMINE 4 GM PWD PKT PO SCH ×2 (08:23→21:57)
[2020-08-15] MEDS: MAG SULF 1GM/100ML (MAG RUN) 1 GM in IV 1 EA IV SCH ×2 (08:23→09:57)
[2020-08-15] MEDS: OCUVITE 1 TAB PO SCH (08:24)
[2020-08-15] MEDS: FIDAXOMICIN 200 MG TAB (DIFICID) PO SCH ×2 (08:24→21:57)
[2020-08-15] MEDS: APIXABAN 2.5 MG TAB (ELIQUIS) PO SCH ×2 (08:24→21:57)
[2020-08-15] MEDS ORDERED: MAGNESIUM OXIDE 400 MG TAB (MAG-OX) PO SCH (09:00)
[2020-08-15] MEDS ORDERED: FUROSEMIDE 40MG/4ML VIAL (J1940) IV ONE (09:15)
[2020-08-15] MEDS: FLUTICASONE PROP 0.05% NASAL SPRAY 16 GM (FLONASE) NARES SCH (10:36)
--- NOTE | 2020-08-15 10:39 | REP ---
INDICATION: cough COMPARISON: 08/05/2020 TECHNIQUE: PA and lateral. FINDINGS: Acute bibasilar opacities/atelectasis and small pleural effusions (left greater than right) represent new findings compared to 08/05/2020. Mediastinum and cardiac silhouette stable. Lung haddad demonstrate underlying chronic interstitial changes. No pneumothorax. Osseous structures demonstrate degenerative changes primarily involving the bilateral shoulders and thoracic spine. IMPRESSION: Acute bibasilar atelectasis/infiltrates and small pleural effusions (left greater than right). <Electronically signed by Jani Lorenz > 08/15/20 [id number]
--- NOTE | 2020-08-15 10:56 | IPNPDOC ---
Text Note Date of Service The patient was seen on 08/15/20. NOTE SUBJECTIVE: 89 year old female with a hx of atrial fibrillation who presented with abdominal pain with nausea and diarrhea, found to have C.diff associated diarrhea and atrial fibrillation with RVR. Patient was seen and examined this morning at bedside. She states her bowel movements have not improved since yesterday, but are still better than when she first came in to the hospital. She notes she has continued to have lower abdominal cramping. She also reports some worsening ankle swelling and continued shortness of breath. She does take lasix at home intermittently for her ankle swelling. She also reports a nonproductive cough and some sinus congestion. OBJECTIVE: VITAL SIGNS: See below GENERAL: Alert, comfortable, in no acute distress HEENT: Normocephalic, atraumatic, EOMI, moist mucous membranes NECK: Supple, trachea midline, no lymphadenopathy, no JVD CARDIOVASCULAR: Regular rate and rhythm, normal S1 and S2 RESPIRATORY: Breath sounds decreased at the bases bilaterally. No wheezing, rhonchi, or rales. ABDOMEN: Mildly tender to palpation, more so in the suprapubic area. Soft, nondistended, bowel sounds present, no masses or hepatosplenomegaly appreciated. EXTREMITIES: No cyanosis. Bilateral pedal edema up to the ankles, worsening. NEUROLOGIC: Alert and oriented x3 to person, place and time. No focal deficits appreciated PSYCHIATRIC: Mood and affect appropriate ASSESSMENT/PLAN: 89 year old female with a hx of atrial fibrillation who presented with abdominal pain with nausea and diarrhea, found to have C.diff associated diarrhea and atrial fibrillation with RVR, now in sinus rhythm but with persistent diarrhea. # C.diff associated diarrhea, improving -GI panel positive for C.diff, C.diff PCR positive. -Initially on oral Vancomycin, had not improved symptoms for 5 days, Fidaxomicin was added on 08/10. -Oral vancomycin discontinued. continue fidaxomicin day #6. -ID consulted, appreciate recommendations. Cholestyramine added with daily improvement of diarrhea. -Dr. Selby also recommends IV Zinplava after hospital discharge -GI consulted for additional recommendations, appreciate their input. # Shortness of breath - Stable since admission per patient - CXR to further evaluate and r/o pneumonia - Will give dose of IV lasix for fluid retention # Urinary urgency and leaking - Check UA, may have developed UTI as she has been passing stool in a diaper in bed # Sepsis secondary to C.diff diarrhea, improved -Fever and elevated WBC on presentation. Lactic acid trended down. -suspected GI source due to diarrhea, C.diff PCR positive -Had antibiotics for sinusitis prior to start of diarrhea which may have instigated the C.diff diarrhea # Afib with RVR, resolved -likely due to dehydration from diarrhea and sepsis as discussed above -Controlled with Lopressor 25mg q6hr. Eliquis for anticoagulation. -Cardiology consulted, recommendations appreciated. -Currently under adequate control, TM was discontinued as she has maintained sinus rhythm # Electrolyte depletion 2/ diarrhea -monitor electrolytes daily and replete as indicated -continues to require potassium and magnesium supplementation likely due to GI losses # Systolic CHF -currently remains stable -Last echocardiogram was 12/2019,EF was 40-45% -Continue Metoprolol. Holding Lasix due to diarrhea and hypotension DVT prophylaxis: Eliquis for anticoagulation due to a fib Disposition: PT/OT clearance, rehab placement if patient is agreeable Robin REESE, I+O VSRobin, I+O Laboratory Tests 08/15/20 05:27 Vital Signs Date Time Temp Pulse Resp B/P (MAP) Pulse Ox O2 Delivery O2 Flow Rate FiO2 08/15/20 06:00 97.0 67 18 149/74 (99) 97 Room Air I&O- Last 24 Hours up to 6 AM 08/15/20 05:59 Intake Total 950 ml Output Total 0 ml Balance 950 ml GME ATTESTATION GME ATTESTATION My faculty preceptor for this patient encounter was physically present during the encounter and was fully available. All aspects of the patient interview, examination, medical decision making process, and medical care plan development were reviewed and approved by the faculty preceptor. The faculty preceptor is aware and concurs with the plan as stated in the body of this note and will attest to such by his/her cosignature. ATTENDING NOTE I, Prakash Strange, have independently examined this patient and performed my own physical exam, as well as reviewed the documentation and edited where necessary. I have discussed in detail with the resident / student the findings and plan of treatment as documented by the resident / student and edited their note. I agree with their findings and treatment plan and have edited their documentation. I will continue to follow the patient during this hospital stay. MOVSESIAN,JENIFER D.O. Aug 15, 2020 10:56 PRAKASH STRANGE MD Aug 15, 2020 16:09
[2020-08-15 14:00] VITALS: BP 151/85
--- NOTE | 2020-08-15 15:28 | REP ---
INDICATION: pancolitis COMPARISON: None. TECHNIQUE: Supine view of the abdomen and pelvis. FINDINGS: The bowel gas pattern is relatively nonspecific although mild wall thickening to the small and large bowel cannot be excluded and consistent with pancolitis. There is no evidence for bowel obstruction or obvious pneumoperitoneum to suggest perforation. No organomegaly. Skeletal structures demonstrate age-related degenerative changes. Atherosclerotic disease noted. IMPRESSION: No evidence for bowel obstruction or perforation. <Electronically signed by Jani Lorenz > 08/15/20 [id number]
--- NOTE | 2020-08-15 18:11 | CR.PDOC ---
General Date of Consultation: Aug 15, 2020 Referring Provider: WOODROW STRANGE MD Attending Physician: NETTIE ALVARES MD Consultation Primary physician/ hospitalist: -Dr. Strange Reason for consult: -Severe C. difficile colitis, not responding to medical therapy. HPI: 89-year-old female with atrial fibrillation, on Eliquis, diastolic CHF, recent diagnosis of pneumonia treated with antibiotics, now presented with severe C. difficile colitis, treated with oral vancomycin with no response, s ubsequently started on Dificid. GI was consulted for further evaluation. Patient reports still having persistent diarrhea, multiple times per day with slight improvement on day 4 of dificid. is noted to have persistent diarrhea and GI was consulted for further evaluation. Pertinent negative GI symptoms: Patient denies fever, chills, abdominal distention. Review of Systems: GI: as stated above CVS: No chest pain, No palpitations, No leg swelling. 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 Skin: No rash : No hematuria, No burning sensation of the urine ENT: No ear discharge/ pain, No dysphagia. Eyes: No photophobia. Jaundice Home medications: reviewed. Antithrombotic agents: -none Medical h/o: As above. Surgical h/o: None on abdomen. Social h/o: Alcohol: Denies , smoking: Denies , IVDA/ drugs: denies Family h/o of GI cancers - None Prior Endoscopies: None in [facility]. Patient denies having screening colonoscopy in past. Prior GI evaluations: -None in [facility] Exam: Vitals: reviewed General: Alert and oriented x 3, not in distress HEENT: NO pallor, no icterus. Normal oropharynx, No cervical lymph nodes. Chest: symmetric with bilateral clear air entry, CVS: S1, S2 heard, normal, no murmurs . Abdomen: non-distended, soft, non-tender, no palpable masses, normal bowel sounds heard. Rectal exam: Patient refused / Deferred at this time in view of scheduled colonoscopy. Extremities: no pedal edema, pulses palpable. ELEVATOR CONSTRUCTOR: no focal motor or sensory deficits. Moves all extremities Skin: no rash. Labs: reviewed. Imaging: reviewed. Impression: - Acute onset diarrhea after recent antibiotics course and subsequent work up showed C. difficile positive and CT abdomen showing pancolitis -- DDx-- Moderate to severe C. difficile enterocolitis, currently on dificid therapy. ( did nto respond to Oral Vancomycin ( dose of 125mg) -- Needs further monitoring. Recommendations: - Patient educated about the test results, possible differential diagnoses and All questions answered. - Diet as tolerated. - Obtain Abdominal x-ray to evaluate for overflow diarrhea/ colonic distension. - Monitor abdominal exam daily and if abdominal distention or decreased bowel sounds to consider Surgery evaluation and oral and rectal high dose vancomycin. - Consider alternatives for oral Magnesium if possible. - If no response to fidaxomicin to consider fecal transplant based on the clinical course. Patient is educated about the fecal transplantation through EGD or colonoscopy, The procedure, indications, risks (bleeding, perforation, i nfection, hypotension, respiratory depression, allergy, need for endotracheal intubation, surgery, colostomy, cardiac arrest, even ), benefits, limitations (e.g., missing a lesion), and all other alternatives (including no intervention). Patient verbalized understanding and refused the procedure. - Monitor and correct electrolytes. - Consider probiotic use after the therapy for C.difficile. - Hand hygiene and disinfection precautions to prevent recurrent C. difficile. - Recall GI if any change in status. Plan of care discussed with patient and primary team. Patient verbalized understanding and agreed with the plan. Vital Signs/I&O Vital Signs Date Time Temp Pulse Resp B/P (MAP) Pulse Ox O2 Delivery O2 Flow Rate FiO2 08/15/20 14:00 98.6 69 18 151/85 (107) 95 Room Air I&O- Last 24 Hours up to 6 AM 08/15/20 05:59 Intake Total 950 ml Output Total 0 ml Balance 950 ml Laboratory Data Labs 24H Laboratory Tests 2 08/15/20 05:27: Nucleated Red Blood Cells % (auto) 0.0, Anion Gap 5L, Glomerular Filtration Rate > 60.0, Calcium Level 8.1L, Magnesium Level 1.5L CBC/BMP Laboratory Tests 08/15/20 05:27 Microbiology Microbiology 08/05/20 Campylobacter (PCR) - Final, Complete 08/05/20 Clostridium difficile Toxin A&B PCR - Final, Complete 08/05/20 Plesiomonas shigelloides (PCR) - Final, Complete 08/05/20 Salmonella (PCR)(NUHA) - Final, Complete 08/05/20 Vibrio Species (PCR) - Final, Complete 08/05/20 Vibrio Cholerae (PCR) - Final, Complete 08/05/20 Yersinia enterocolitica (PCR) - Final, Complete 08/05/20 Enteroaggregative E. coli (PCR) - Final, Complete 08/05/20 Enteropathogenic E. coli (PCR) - Final, Complete 08/05/20 Enterotoxigenic E. coli (PCR) - Final, Complete 08/05/20 E. coli Shiga-like Toxin (PCR) - Final, Complete 08/05/20 Escherichia coli 0157 (PCR) - Final, Complete 08/05/20 Enteroinvasive E. coli/Shigella PCR - Final, Complete 08/05/20 Cryptosporidium (PCR) - Final, Complete 08/05/20 Cyclospora cayetanensis (PCR) - Final, Complete 08/05/20 Entamoeba histolytica (PCR) - Final, Complete 08/05/20 Giardia lamblia (PCR) - Final, Complete 08/05/20 Adenovirus Type F 40/41 (PCR) - Final, Complete 08/05/20 Astrovirus (PCR) - Final, Complete 08/05/20 Norovirus GI/GII (PCR) - Final, Complete 08/05/20 Rotavirus A (PCR) - Final, Complete 08/05/20 Sapovirus I/II/IV/V (PCR) - Final, Complete 08/05/20 Urine Culture - Final, Complete Escherichia Coli 08/05/20 Blood Culture - Final, Complete NO GROWTH AFTER 5 DAYS 08/05/20 Blood Culture - Final, Complete NO GROWTH AFTER 5 DAYS Allergies Coded Allergies: Penicillins (Verified Allergy, Intermediate, hives, 01/08/20) Home Medications Scheduled Apixaban (Eliquis) 2.5 Mg Tablet, 2.5 MG PO BID, (Reported) Bimatoprost (Lumigan) 0.01% 2.5ML Drops, 1 DROP OS QHS, (Reported) Calcium Carbonate (Calcium) 500 Mg Tab.chew, 1,000 MG PO DAILY, (Reported) Cholestyramine (Cholestyramine Packet) 4 Gm Powd.pack, 4 GM PO BID@1000,2200 for 15 Days, #30 Fidaxomicin (Dificid) 200 Mg Tablet, 200 MG PO Q2D for 10 Days, #5 Take 1 tablet every other day Furosemide (Furosemide) 20 Mg Tablet, 20 MG PO DAILY, (Reported) L.acidoph/L.bulg/B.bif/S.therm (Tatiana-Bid Caplet) 1 Each Tablet, 1 EA PO TID for 30 Days, #60 Metoprolol Tartrate (Lopressor) 50 Mg Tablet, 50 MG PO BID for 30 Days, #60 Multivitamins (Thera M Plus Tablet) 1 Each Tablet, 2 TAB PO DAILY, (Reported) TAKES AT NOON Potassium Chloride (Potassium Chloride) 20 Meq Tab.er.prt, 20 MEQ PO DAILY, (Reported) Vit A/Vit C/Vit E/Zinc/Copper (Preservision Areds Softgel) 1 Each Capsule, 1 CAP PO DAILY, (Reported) NETTIE ALVARES MD Aug 15, 2020 18:11
[2020-08-15 22:00] VITALS: BP 137/64
[2020-08-15] MEDS: LATANOPROST 0.005% OPHTH SOLN 2.5 ML OS SCH (22:01)
[2020-08-16] MEDS: METOPROLOL TART 25 MG TABLET PO SCH ×4 (00:18→17:15)
[2020-08-16 05:51] LABS: HEMATOCRIT 35.6 % (36.0-47.0); HEMOGLOBIN 11.7 g/dl (12.0-15.5); MEAN CORPUSCULAR HEMOGLOBIN 30.7 pg (27.0-33.0); MEAN CORPUSCULAR HGB CONC 32.9 g/dl (32.0-36.5); MEAN CORPUSCULAR VOLUME 93.4 fl (80.0-96.0); PLATELET COUNT, AUTOMATED 450 10^3/uL (150-450); RED BLOOD COUNT 3.81 10^6/uL (4.00-5.40); WHITE BLOOD COUNT 11.7 10^3/uL (4.0-10.0)
[2020-08-16 06:00] VITALS: BP 118/57
[2020-08-16 06:15] LABS: BLOOD UREA NITROGEN 11 MG/DL (7-18); CALCIUM LEVEL 8.2 MG/DL (8.8-10.2); CARBON DIOXIDE LEVEL 31 MEQ/L (21-32); CHLORIDE LEVEL 108 MEQ/L (98-107); CREATININE FOR GFR 0.64 MG/DL (0.55-1.30); GLOMERULAR FILTRATION RATE > 60.0 (>32); GLUCOSE, FASTING 93 MG/DL (70-100); MAGNESIUM LEVEL 1.6 MG/DL (1.8-2.4); POTASSIUM SERUM 3.3 MEQ/L (3.5-5.1); SODIUM LEVEL 143 MEQ/L (136-145)
[2020-08-16] MEDS ORDERED: POTASSIUM CHLORIDE 10 MEQ SR TABLET PO ONE (07:00)
[2020-08-16] MEDS: MAG SULF 1GM/100ML (MAG RUN) 1 GM in IV 1 EA IV SCH ×3 (07:05→09:04)
[2020-08-16] MEDS: OCUVITE 1 TAB PO SCH (07:52)
[2020-08-16] MEDS: FIDAXOMICIN 200 MG TAB (DIFICID) PO SCH ×2 (07:52→21:29)
[2020-08-16] MEDS: APIXABAN 2.5 MG TAB (ELIQUIS) PO SCH ×2 (07:52→21:28)
[2020-08-16] MEDS: FLUTICASONE PROP 0.05% NASAL SPRAY 16 GM (FLONASE) NARES SCH (07:53)
--- NOTE | 2020-08-16 09:02 | IPN ---
DATE: 08/15/2020 SUBJECTIVE: Juliana seemed to be in better spirits today except that she is frustrated that she has to urinate all the time because of IV Lasix. She thinks her diarrhea is better but she had an episode of abdominal pain this morning that has resolved now. She is having dinner and seems to be more perky and smiling. She is willing to eat her dinner. She does not want to get out of bed due to incontinence. A urinalysis with reflex culture was ordered by the Primary Team but the patient denies any dysuria, hematuria or flank pain. Her abdominal pain has resolved from this morning. A stool for polys was also ordered. PHYSICAL EXAMINATION: VITAL SIGNS: Temperature is 98.6, pulse 69, respirations 18, blood pressure 151/85. O2 sat is 95% on room air. HEART: Normal S1, S2 with a systolic ejection murmur, 2/6, unchanged. LUNGS: Decreased breath sounds at the bases with few crackles. ABDOMEN: Soft, nontender, no hepatosplenomegaly. EXTREMITIES: +1 pitting edema. BACK: No CVA or lumbosacral tenderness. LABORATORY STUDIES: White count 13.9, hemoglobin 11.2, hematocrit 35.7, platelets 434. Sodium 145, potassium 3.5, chloride 112, bicarbonate 28, BUN 10, creatinine 0.61, glucose 104, calcium 8.1, magnesium 1.5. MEDICATIONS: * Fidaxomicin 200 mg p.o. twice daily. * Cholestyramine 2 grams p.o. twice daily. IMPRESSION: 1. Severe C-difficile colitis continue Dificid and Cholestyramine. White count has decreased and number of bowel movements have improved. 2. Congestive heart failure - The patient has received a dose of IV Lasix today. 3. Atrial fibrillation much better with heart rate, with much better response. PLAN: 1. Continue Fidaxomicin 200 mg p.o. twice daily for 10 days Day# 5/10. The patient will need IV Zinplava at discharge which could be scheduled as an outpatient at the dose of 650 mg times one dose. 2.Please discontinue urinalysis and urine culture. The patient does not have dysuria or hematuria. Patients that are 89 years old will have bacteriuria and the patient should not be treated with any antibiotic at this time. There is no indication for a urinalysis. 3. Discontinue stool for polys. The patient has C-difficile colitis with mucoid stool. The polys will be positive. MTDD
[2020-08-16] MEDS: CHOLESTYRAMINE 4 GM PWD PKT PO SCH ×2 (10:16→21:29)
--- NOTE | 2020-08-16 10:37 | IPNPDOC ---
Text Note Date of Service The patient was seen on 08/16/20. NOTE SUBJECTIVE: 89 year old female with a hx of atrial fibrillation who presented with abdominal pain with nausea and diarrhea, found to have C.diff associated diarrhea and atrial fibrillation with RVR. Patient was seen and examined this morning at bedside. She state she continues to be frustrated with her symptoms. Her bowel movements continue to be loose and she is not able to get up to use the bathroom or commode. She continues to work with PT but states she gets nervous that she will have a bowel movement right when she gets up. OBJECTIVE: VITAL SIGNS: See below GENERAL: Alert, comfortable, in no acute distress HEENT: Normocephalic, atraumatic, EOMI, moist mucous membranes NECK: Supple, trachea midline, no lymphadenopathy, no JVD CARDIOVASCULAR: Regular rate and rhythm, normal S1 and S2 RESPIRATORY: Breath sounds decreased at the bases bilaterally. No wheezing, rhonchi, or rales. ABDOMEN: Mildly tender to palpation, more so in the suprapubic area. Soft, nondistended, bowel sounds present, no masses or hepatosplenomegaly appreciated. EXTREMITIES: No cyanosis. Bilateral pedal edema (improved) NEUROLOGIC: Alert and oriented x3 to person, place and time. No focal deficits appreciated PSYCHIATRIC: Mood and affect appropriate ASSESSMENT/PLAN: 89 year old female with a hx of atrial fibrillation who presented with abdominal pain with nausea and diarrhea, found to have C.diff associated diarrhea and atrial fibrillation with RVR, now in sinus rhythm but with persistent diarrhea. # C.diff associated diarrhea, persistent -GI panel positive for C.diff, C.diff PCR positive. -Initially on oral Vancomycin, had not improved symptoms for 5 days, Fidaxomicin was added on 08/10. -Oral vancomycin discontinued. continue fidaxomicin day #7. -ID consulted, appreciate recommendations. Cholestyramine added with some improvement of diarrhea. -Dr. Selby also recommends IV Zinplava after hospital discharge -GI consulted for additional recommendations, appreciate their input. -Abdomen XR shows "no evidence for bowel obstruction or perforation" # Shortness of breath, improved - Stable since admission per patient - CXR shows "acute bibasilar atelectasis/infiltrates and small pleural effusions (left greater than right)" - Given one dose of IV lasix on 08/15 with symptomatic improvement - Incentive spirometer also give for atelectasis # Sepsis secondary to C.diff diarrhea, improved -Fever and elevated WBC on presentation. Lactic acid trended down. -suspected GI source due to diarrhea, C.diff PCR positive -Had antibiotics for sinusitis prior to start of diarrhea which may have instigated the C.diff diarrhea # Afib with RVR, resolved -likely due to dehydration from diarrhea and sepsis as discussed above -Controlled with Lopressor 25mg q6hr. Eliquis for anticoagulation. -Cardiology consulted, recommendations appreciated. -Currently under adequate control, TM was discontinued as she has maintained sinus rhythm # Electrolyte depletion 2/ diarrhea -monitor electrolytes daily and replete as indicated -continues to require potassium and magnesium supplementation likely due to GI losses # Systolic CHF -currently remains stable -Last echocardiogram was 12/2019,EF was 40-45% -Continue Metoprolol. Given one dose of IV lasix yesterday due to SOB and ankle swelling with improvement. DVT prophylaxis: Eliquis for anticoagulation due to a fib Disposition: pending clinical improvement, PT/OT clearance, rehab placement if patient is agreeable VS,Rynebone, I+O VS, Fishbone, I+O Laboratory Tests 08/16/20 05:28 Vital Signs Date Time Temp Pulse Resp B/P (MAP) Pulse Ox O2 Delivery O2 Flow Rate FiO2 08/16/20 06:00 98.1 69 18 118/57 (77) 93 Room Air I&O- Last 24 Hours up to 6 AM 08/16/20 06:00 Intake Total 850 ml Output Total 300 ml Balance 550 ml GME ATTESTATION GME ATTESTATION My faculty preceptor for this patient encounter was physically present during the encounter and was fully available. All aspects of the patient interview, examination, medical decision making process, and medical care plan development were reviewed and approved by the faculty preceptor. The faculty preceptor is aware and concurs with the plan as stated in the body of this note and will attest to such by his/her cosignature. ATTENDING NOTE I, Prakash Strange, have independently examined this patient and performed my own physical exam, as well as reviewed the documentation and edited where necessary. I have discussed in detail with the resident / student the findings and plan of treatment as documented by the resident / student and edited their note. I agree with their findings and treatment plan and have edited their documentation. I will continue to follow the patient during this hospital stay. JENIFER VEGA D.O. Aug 16, 2020 10:37 PRAKASH STRANGE MD Aug 16, 2020 18:55
[2020-08-16 14:00] VITALS: BP 125/58
[2020-08-16] MEDS ORDERED: LOMOTIL 2.5MG/0.025MG TABLET PO ONE (14:45)
[2020-08-16] MEDS: LACTOBACILLUS ACIDOPHILUS CAP (BACID) PO SCH ×2 (15:48→21:29)
[2020-08-16] MEDS: LATANOPROST 0.005% OPHTH SOLN 2.5 ML OS SCH (21:32)
[2020-08-16 22:00] VITALS: BP 134/74
[2020-08-17] MEDS: METOPROLOL TART 25 MG TABLET PO SCH ×4 (00:24→17:09)
[2020-08-17] MEDS: ACETAMINOPHEN TAB 650MG DOSE (2X325MG) PO PRN ×3 (00:24→20:59)
[2020-08-17 06:00] VITALS: BP 128/59
[2020-08-17 06:04] LABS: HEMATOCRIT 34.4 % (36.0-47.0); HEMOGLOBIN 10.9 g/dl (12.0-15.5); MEAN CORPUSCULAR HEMOGLOBIN 29.8 pg (27.0-33.0); MEAN CORPUSCULAR HGB CONC 31.7 g/dl (32.0-36.5); PLATELET COUNT, AUTOMATED 434 10^3/uL (150-450); RED BLOOD COUNT 3.66 10^6/uL (4.00-5.40); WHITE BLOOD COUNT 10.8 10^3/uL (4.0-10.0)
[2020-08-17 06:29] LABS: BLOOD UREA NITROGEN 12 MG/DL (7-18); CALCIUM LEVEL 8.2 MG/DL (8.8-10.2); CARBON DIOXIDE LEVEL 29 MEQ/L (21-32); CHLORIDE LEVEL 108 MEQ/L (98-107); CREATININE FOR GFR 0.61 MG/DL (0.55-1.30); GLOMERULAR FILTRATION RATE > 60.0 (>32); GLUCOSE, FASTING 92 MG/DL (70-100); MAGNESIUM LEVEL 1.8 MG/DL (1.8-2.4); SODIUM LEVEL 143 MEQ/L (136-145)
[2020-08-17] MEDS: APIXABAN 2.5 MG TAB (ELIQUIS) PO SCH ×2 (08:44→20:57)
[2020-08-17] MEDS: LACTOBACILLUS ACIDOPHILUS CAP (BACID) PO SCH ×3 (08:44→20:58)
[2020-08-17] MEDS: FIDAXOMICIN 200 MG TAB (DIFICID) PO SCH ×2 (08:44→20:57)
[2020-08-17] MEDS: FLUTICASONE PROP 0.05% NASAL SPRAY 16 GM (FLONASE) NARES SCH (08:45)
[2020-08-17] MEDS: OCUVITE 1 TAB PO SCH (08:45)
[2020-08-17] MEDS: CHOLESTYRAMINE 4 GM PWD PKT PO SCH ×2 (10:50→22:50)
--- NOTE | 2020-08-17 10:50 | IPNPDOC ---
Text Note Date of Service The patient was seen on 08/17/20. NOTE SUBJECTIVE: 89 year old female with a hx of atrial fibrillation who presented with abdominal pain with nausea and diarrhea, found to have C.diff associated diarrhea and atrial fibrillation with RVR. Patient was seen and examined this morning at bedside. She continues to express frustration with her symptoms and weakness. She denies any improvement in the consistency or frequency of her diarrhea since yesterday. She denies any current abdominal pain. No fevers overnight. OBJECTIVE: VITAL SIGNS: See below GENERAL: Alert, comfortable, in no acute distress HEENT: Normocephalic, atraumatic, EOMI, moist mucous membranes NECK: Supple, trachea midline, no lymphadenopathy, no JVD CARDIOVASCULAR: Regular rate and rhythm, normal S1 and S2 RESPIRATORY: Breath sounds decreased at the bases bilaterally. No wheezing, rhonchi, or rales. ABDOMEN: Mildly tender to palpation, more so in the suprapubic area. Soft, nondistended, bowel sounds present, no masses or hepatosplenomegaly appreciated. EXTREMITIES: No cyanosis. Bilateral pedal edema, stable NEUROLOGIC: Alert and oriented x3 to person, place and time. No focal deficits appreciated PSYCHIATRIC: Mood and affect appropriate ASSESSMENT/PLAN: 89 year old female with a hx of atrial fibrillation who presented with abdominal pain with nausea and diarrhea, found to have C.diff associated diarrhea and atrial fibrillation with RVR, now in sinus rhythm but with persistent diarrhea. # C.diff associated diarrhea, persistent -GI panel positive for C.diff, C.diff PCR positive. -Initially on oral Vancomycin, had not improved symptoms for 5 days, Fidaxomicin was added on 08/10. -Oral vancomycin discontinued. continue fidaxomicin day #8. -ID consulted, appreciate recommendations. Cholestyramine added with some improvement of diarrhea. Bacid has also been added. -Dr. Selby also recommends IV Zinplava after hospital discharge -GI consulted for additional recommendations, appreciate their input. -Abdomen XR shows "no evidence for bowel obstruction or perforation" # Shortness of breath, improved - Stable since admission per patient - CXR shows "acute bibasilar atelectasis/infiltrates and small pleural effusions (left greater than right)" - Given one dose of IV lasix on 08/15 with symptomatic improvement - Incentive spirometer also give for atelectasis # Sepsis secondary to C.diff diarrhea, improved -Fever and elevated WBC on presentation. Lactic acid trended down. -suspected GI source due to diarrhea, C.diff PCR positive -Had antibiotics for sinusitis prior to start of diarrhea which may have instigated the C.diff diarrhea # Afib with RVR, resolved -likely due to dehydration from diarrhea and sepsis as discussed above -Controlled with Lopressor 25mg q6hr. Eliquis for anticoagulation. -Cardiology consulted, recommendations appreciated. -Currently under adequate control, TM was discontinued as she has maintained sinus rhythm # Electrolyte depletion 2/ diarrhea -monitor electrolytes daily and replete as indicated -continues to require potassium and magnesium supplementation likely due to GI losses # Systolic CHF -currently remains stable -Last echocardiogram was 12/2019,EF was 40-45% -Continue Metoprolol. Consider lasix prn for worsening leg edema. DVT prophylaxis: - Eliquis for anticoagulation due to a fib Disposition: pending clinical improvement, PT/OT clearance, rehab placement if patient is agreeable VS,Robin, I+O VS, Rynebone, I+O Laboratory Tests 08/17/20 05:47 Vital Signs Date Time Temp Pulse Resp B/P (MAP) Pulse Ox O2 Delivery O2 Flow Rate FiO2 08/17/20 06:00 98.3 72 18 128/59 (82) 93 Room Air I&O- Last 24 Hours up to 6 AM 08/17/20 06:00 Intake Total 410 ml Output Total 0 ml Balance 410 ml GME ATTESTATION GME ATTESTATION My faculty preceptor for this patient encounter was physically present during the encounter and was fully available. All aspects of the patient interview, examination, medical decision making process, and medical care plan development were reviewed and approved by the faculty preceptor. The faculty preceptor is aware and concurs with the plan as stated in the body of this note and will attest to such by his/her cosignature. ATTENDING NOTE I, Praaksh Strange, have independently examined this patient and performed my own physical exam, as well as reviewed the documentation and edited where necessary. I have discussed in detail with the resident / student the findings and plan of treatment as documented by the resident / student and edited their note. I agree with their findings and treatment plan and have edited their documentation. I will continue to follow the patient during this hospital stay. JENIFER VEGA D.O. Aug 17, 2020 10:50 PRAKASH STRANGE MD Aug 17, 2020 14:11
[2020-08-17 14:00] VITALS: BP 133/66
[2020-08-17] MEDS: LATANOPROST 0.005% OPHTH SOLN 2.5 ML OS SCH (20:59)
[2020-08-17 22:00] VITALS: BP 131/70
[2020-08-18] MEDS: METOPROLOL TART 25 MG TABLET PO SCH ×2 (01:10→06:41)
[2020-08-18] MEDS: ACETAMINOPHEN TAB 650MG DOSE (2X325MG) PO PRN ×3 (01:11→16:18)
[2020-08-18 06:00] VITALS: BP 134/67
[2020-08-18 06:51] LABS: HEMATOCRIT 35.9 % (36.0-47.0); HEMOGLOBIN 11.4 g/dl (12.0-15.5); MEAN CORPUSCULAR HEMOGLOBIN 30.6 pg (27.0-33.0); MEAN CORPUSCULAR HGB CONC 31.8 g/dl (32.0-36.5); MEAN CORPUSCULAR VOLUME 96.2 fl (80.0-96.0); PLATELET COUNT, AUTOMATED 436 10^3/uL (150-450); RED BLOOD COUNT 3.73 10^6/uL (4.00-5.40); WHITE BLOOD COUNT 8.5 10^3/uL (4.0-10.0)
[2020-08-18 07:21] LABS: BLOOD UREA NITROGEN 12 MG/DL (7-18); CALCIUM LEVEL 8.5 MG/DL (8.8-10.2); CARBON DIOXIDE LEVEL 32 MEQ/L (21-32); CHLORIDE LEVEL 107 MEQ/L (98-107); CREATININE FOR GFR 0.63 MG/DL (0.55-1.30); GLOMERULAR FILTRATION RATE > 60.0 (>32); GLUCOSE, FASTING 89 MG/DL (70-100); MAGNESIUM LEVEL 1.6 MG/DL (1.8-2.4); SODIUM LEVEL 143 MEQ/L (136-145)
[2020-08-18] MEDS: MAG SULF 1GM/100ML (MAG RUN) 1 GM in IV 1 EA IV SCH ×2 (08:57→09:01)
[2020-08-18] MEDS: FLUTICASONE PROP 0.05% NASAL SPRAY 16 GM (FLONASE) NARES SCH (08:57)
[2020-08-18] MEDS: LACTOBACILLUS ACIDOPHILUS CAP (BACID) PO SCH ×3 (08:57→20:24)
[2020-08-18] MEDS: APIXABAN 2.5 MG TAB (ELIQUIS) PO SCH ×2 (08:57→20:24)
[2020-08-18] MEDS: FIDAXOMICIN 200 MG TAB (DIFICID) PO SCH ×2 (08:57→20:24)
[2020-08-18] MEDS: OCUVITE 1 TAB PO SCH (08:57)
[2020-08-18] MEDS: CHOLESTYRAMINE 4 GM PWD PKT PO SCH ×2 (10:56→22:42)
--- NOTE | 2020-08-18 11:55 | IPNPDOC ---
Text Note Date of Service The patient was seen on 08/18/20. NOTE Subjective: Patient is an 89-year-old female with a PMHx of A. fib (on Eliquis), CHF, Glaucoma , who presents to the hospital with complaints of abdominal pain associated with nausea and diarrhea. Patient was started on antibiotics. One week before admission for sinusitis. After completion of antibiotic course. Patient began to experience abdominal pain, watery diarrhea. Upon arrival to emergency room, patient had a stool sample was consistent with C. difficile colitis and was hypotensive. She was admitted to hospital service for further evaluation and treatment. Patient was seen and examined at the bedside. Currently patient reports that she has been tolerating her diet. Denies any nausea, vomiting, abdominal pain. Does report some loose stools. Denies any chest pain, shortness breath or palpitations. Patient has continued to work with physical therapy, however has not yet cleared. Objective: Vitals (See below) General: Lying in bed, appears comfortable, AAOx3 HEENT: NC, AT CVS: +S1S2 Lungs: Fair air entry b/l, -w/r/r Abdomen: Soft, ND, NT Extremities: 1+ pitting edema at feet, - Calf tenderness Assessment and plan: C.diff associated diarrhea, persistent - Continues to experience diarrhea has had slight improvement - Remains hemodynamically stable and afebrile - Resolution of leukocytosis, no lactic acidosis - GI panel 08/05: C. diff - c/w Fidaxomicin (Day#8 - End 08/20 AM); s/p Vancomycin PO - c/w cholestyramine - Infectious disease and gastroenterology on consultation; appreciate their input. s/p Shortness of breath - CXR 08/15: Acute bibasilar atelectasis/infiltrates and small pleural effusions (left greater than right). - c/w Incentive spirometry - Will provide small dose of Lasix today s/p Sepsis 2/2 C.diff - s/p Fever / Hypotension - s/p Leukocytoids Afib; s/p RVR - c/w rate control with Metoprolol - c/w full anticoagulation with Eliquis Electrolyte depletion 2/2 diarrhea - Will supplement magnesium today Systolic CHF - Currently remains stable - Last echocardiogram was 12/2019,EF was 40-45% - c/w Metoprolol - Will provide additional dose of Furosemide DVT prophylaxis - c/w full anticoagulation with Eliquis Disposition: - Pending clinical improvement - c/w PT/OT clearance VS,Tressae, I+O VS, Rynebone, I+O Laboratory Tests 08/18/20 06:00 Vital Signs Date Time Temp Pulse Resp B/P (MAP) Pulse Ox O2 Delivery O2 Flow Rate FiO2 08/18/20 06:41 64 134/68 08/18/20 06:00 98.1 18 94 Room Air I&O- Last 24 Hours up to 6 AM 08/18/20 06:00 Intake Total 875 ml Output Total 0 ml Balance 875 ml WOODROW STRANGE MD Aug 18, 2020 11:55
[2020-08-18] MEDS ORDERED: FUROSEMIDE 20MG/2ML VIAL (J1940) IV ONE (12:00)
[2020-08-18 14:00] VITALS: BP 121/59
[2020-08-18] MEDS: LATANOPROST 0.005% OPHTH SOLN 2.5 ML OS SCH (20:25)
[2020-08-18] MEDS: METOPROLOL TART 50 MG TAB PO SCH (20:27)
[2020-08-18 22:00] VITALS: BP 132/64
[2020-08-19] MEDS: ACETAMINOPHEN TAB 650MG DOSE (2X325MG) PO PRN ×3 (03:49→16:49)
[2020-08-19 05:59] LABS: HEMATOCRIT 36.4 % (36.0-47.0); HEMOGLOBIN 11.4 g/dl (12.0-15.5); MEAN CORPUSCULAR HEMOGLOBIN 29.8 pg (27.0-33.0); MEAN CORPUSCULAR HGB CONC 31.3 g/dl (32.0-36.5); MEAN CORPUSCULAR VOLUME 95.3 fl (80.0-96.0); PLATELET COUNT, AUTOMATED 430 10^3/uL (150-450); RED BLOOD COUNT 3.82 10^6/uL (4.00-5.40); WHITE BLOOD COUNT 8.8 10^3/uL (4.0-10.0)
[2020-08-19 06:00] VITALS: BP 124/57
[2020-08-19 06:30] LABS: BLOOD UREA NITROGEN 12 MG/DL (7-18); CALCIUM LEVEL 8.4 MG/DL (8.8-10.2); CARBON DIOXIDE LEVEL 33 MEQ/L (21-32); CHLORIDE LEVEL 105 MEQ/L (98-107); CREATININE FOR GFR 0.78 MG/DL (0.55-1.30); GLOMERULAR FILTRATION RATE > 60.0 (>32); GLUCOSE, FASTING 94 MG/DL (70-100); MAGNESIUM LEVEL 1.7 MG/DL (1.8-2.4); POTASSIUM SERUM 4.1 MEQ/L (3.5-5.1); SODIUM LEVEL 141 MEQ/L (136-145)
[2020-08-19] MEDS: MAG SULF 1GM/100ML (MAG RUN) 1 GM in IV 1 EA IV SCH ×3 (08:46→10:52)
[2020-08-19] MEDS: FIDAXOMICIN 200 MG TAB (DIFICID) PO SCH ×2 (08:47→21:09)
[2020-08-19] MEDS: APIXABAN 2.5 MG TAB (ELIQUIS) PO SCH ×2 (08:47→21:10)
[2020-08-19] MEDS: OCUVITE 1 TAB PO SCH (08:47)
[2020-08-19] MEDS: LACTOBACILLUS ACIDOPHILUS CAP (BACID) PO SCH ×3 (08:47→21:10)
[2020-08-19] MEDS: METOPROLOL TART 50 MG TAB PO SCH ×2 (08:49→21:11)
[2020-08-19] MEDS: FLUTICASONE PROP 0.05% NASAL SPRAY 16 GM (FLONASE) NARES SCH (08:50)
--- NOTE | 2020-08-19 09:04 | IPN ---
DATE: 08/16/2020 SUBJECTIVE: Juliana is frustrated because she is still incontinent of stools. She has severe irritation of her vulva as well as perianal area due to incontinence of stools. She has minimal abdominal pain, usually more of a cramp. She has no nausea or vomiting, but she states that the food does not want to slide down after she chews it. She has had no fever or chills. She did not answer the phone and I called her daughter, Arianna Bearden, to discuss her mothers care. MEDICATIONS: Cholestyramine 2 grams p.o. b.i.d., Fidaxomicin currently day #7 200 mg p.o. b.i.d. LABORATORY DATA: White count 11.7, hemoglobin 11.7, hematocrit 35, platelets 450,000. Sodium 143, potassium 3.3, chloride 108, bicarb 31, BUN 11, creatinine 0.64, glucose 93, calcium 8.2, magnesium 1.6. PHYSICAL EXAMINATION: VITAL SIGNS: Temperature 98.4, pulse 63, respirations 16, blood pressure 125/50, O2 sat 91% on room air. HEART: Normal S1, S2. No murmurs appreciated. LUNGS: Decreased breath sounds at the bases with no crackles or wheezes. ABDOMEN: Soft, mildly tender in the right lower quadrant. Bowel sounds present. No masses or hepatosplenomegaly. EXTREMITIES: No cyanosis or clubbing. She has trace pedal edema. SKIN: Erythema of both vulva area and perianal area extensive. NEUROLOGIC: Alert and oriented x3. Motor strength normal. IMPRESSION: 1. Severe C. difficile colitis with no improvement, currently on day #7 of Fidaxomicin: Failed previously p.o. Vancomycin. Will increase her dose of Cholestyramine to 4 grams b.i.d. to be spaced away from her Dificid. Patient will be given one dose of Lomotil today to help with her diarrhea. Her daughter asked if we could use Probiotics, which were ordered as well, although we do not know if that helps in cases of severe C. difficile colitis. The patient was encouraged also to eat yogurt. 2. Chemical dermatitis in perineal area from diarrhea. Patient is using Desitin. PureWick will be used and if diarrhea does not get better with Lomotil, consider placing a rectal tube. 3. Hyperkalemia and hypomagnesemia related to diarrhea. PLAN: Continue Fidaxomicin 200 mg p.o. b.i.d. Avoid dairy products; use only yogurt. I have discussed with her daughter the option of stool transplantation, although this has not been done during COVID time due to the company who has not been able to screen for COVID-19 in stools and therefore may not be an option. MTDD
[2020-08-19] MEDS: CHOLESTYRAMINE 4 GM PWD PKT PO SCH ×2 (10:51→23:00)
--- NOTE | 2020-08-19 12:23 | IPNPDOC ---
Text Note Date of Service The patient was seen on 08/19/20. NOTE Subjective: Patient is an 89-year-old female with a PMHx of A. fib (on Eliquis), CHF, Glaucoma , who presents to the hospital with complaints of abdominal pain associated with nausea and diarrhea. Patient was started on antibiotics. One week before admission for sinusitis. After completion of antibiotic course. Patient began to experience abdominal pain, watery diarrhea. Upon arrival to emergency room, patient had a stool sample was consistent with C. difficile colitis and was hypotensive. She was admitted to hospital service for further evaluation and treatment. Patient was seen and examined at the bedside. Patient has had improvement of her diarrhea. Denies any nausea, vomiting, reports some abdominal discomfort, barely at the lower abdomen. Denies any chest pain, shortness of breath or palpitations. Patient continues to work with physical therapy. Objective: Vitals (See below) General: Sitting up in bed, does not appear to be in any distress, comfortable, awake, alert and oriented 3 HEENT: NC, AT CVS: +S1S2 Lungs: Fair air entry b/l, no appreciable wheezing, rhonchi or rales Abdomen: Soft, nondistended and nontender Extremities: Lower extremities are without any edema, - Calf tenderness Assessment and plan: C.diff associated diarrhea, persistent - Improvement of diarrhea - Hemodynamically stable / Afebrile - s/p Leukocytosis / No lactic acidosis - GI panel 08/05: C. diff - c/w Fidaxomicin (Day#9 - End 08/20 AM); s/p Vancomycin PO - c/w cholestyramine - Infectious disease and gastroenterology on consultation; appreciate their input. s/p Shortness of breath - CXR 08/15: Acute bibasilar atelectasis/infiltrates and small pleural effusions (left greater than right). - s/p Lasix IV - c/w Incentive spirometry s/p Sepsis 2/2 C.diff - s/p Fever / Hypotension - s/p Leukocytoids Afib; s/p RVR - c/w rate control with Metoprolol - c/w full anticoagulation with Eliquis Electrolyte depletion 2/2 diarrhea - Will again provide magnesium supplementation via IV Systolic CHF - Currently remains stable - Last echocardiogram was 12/2019,EF was 40-45% - c/w Metoprolol DVT prophylaxis - c/w full anticoagulation with Eliquis Disposition: - c/w PT/OT clearance - Will need rehabilitation VS,Robin, I+O VS, Robin, I+O Laboratory Tests 08/19/20 05:38 Vital Signs Date Time Temp Pulse Resp B/P (MAP) Pulse Ox O2 Delivery O2 Flow Rate FiO2 08/19/20 08:49 70 131/60 08/19/20 06:00 97.4 16 94 Room Air I&O- Last 24 Hours up to 6 AM 08/19/20 06:00 Intake Total 740 ml Output Total 200 ml Balance 540 ml WOODROW STRANGE MD Aug 19, 2020 12:23
[2020-08-19 14:00] VITALS: BP 113/54
[2020-08-19] MEDS: LATANOPROST 0.005% OPHTH SOLN 2.5 ML OS SCH (21:10)
[2020-08-19 22:00] VITALS: BP 130/58
[2020-08-20] MEDS: ACETAMINOPHEN TAB 650MG DOSE (2X325MG) PO PRN ×2 (01:24→08:57)
[2020-08-20 06:00] VITALS: BP 128/59
[2020-08-20 06:19] LABS: HEMOGLOBIN 10.7 g/dl (12.0-15.5); MEAN CORPUSCULAR HEMOGLOBIN 29.3 pg (27.0-33.0); MEAN CORPUSCULAR HGB CONC 30.6 g/dl (32.0-36.5); MEAN CORPUSCULAR VOLUME 95.9 fl (80.0-96.0); PLATELET COUNT, AUTOMATED 406 10^3/uL (150-450); RED BLOOD COUNT 3.65 10^6/uL (4.00-5.40)
[2020-08-20 06:36] LABS: BLOOD UREA NITROGEN 13 MG/DL (7-18); CALCIUM LEVEL 8.6 MG/DL (8.8-10.2); CARBON DIOXIDE LEVEL 33 MEQ/L (21-32); CHLORIDE LEVEL 104 MEQ/L (98-107); CREATININE FOR GFR 0.69 MG/DL (0.55-1.30); GLOMERULAR FILTRATION RATE > 60.0 (>32); GLUCOSE, FASTING 89 MG/DL (70-100); MAGNESIUM LEVEL 1.9 MG/DL (1.8-2.4); SODIUM LEVEL 142 MEQ/L (136-145)
--- NOTE | 2020-08-20 08:01 | IPN ---
DATE: 08/19/2020 SUBJECTIVE: Juliana is doing so much better. She only had a couple of bowel movements today. Minimal abdominal cramps this morning. Her irritation at the buttock area has improved. She denies any dysuria or hematuria. She is afebrile. Appetite is good. She is eating her yogurt. MEDICATIONS: - Dificid 200 mg p.o. twice daily, day number 9 nine out of 14 started on August 10 - Cholestyramine 4 gm by mouth twice a day - Probiotics one tablet by mouth three times a day LABS: White count 8.8, hemoglobin 11.4, hematocrit 36.4, platelets 430. Sodium 141, potassium 4.1, chloride 105, bicarb 33, BUN 12, creatinine 0.78, glucose 90, calcium 8.4, magnesium 1.7. PHYSICAL EXAMINATION: Temperature 96.9, pulse 61, respirations 16, blood pressure 113/54, O2 saturation 94% on room air. Heart: Normal S1, S2. Irregular. Lungs: Decreased breath sounds at the bases with a few crackles. Back: Kyphoscoliosis with a few pressure sores on the spine. Mild erythema. Abdomen is soft, nontender, no hepatosplenomegaly. Extremities: Trace edema bilaterally, no calf tenderness. IMPRESSION: 1. Severe Clostridium difficile colitis, did not respond to treatment with by mouth Vancomycin, currently day number 9 out of 14 with by mouth Dificid. 2. Atrial fibrillation and congestive heart failure. The patient has received IV Lasix. Atrial fibrillation rate is controlled with metoprolol and the patient is currently on Eliquis. PLAN: Suggest continuing Dificid for a total of 14 days with end of therapy being on August 24. The patient should be scheduled for an outpatient infusion of IV Zinplava at a dose 600 mg IV times one infusion. Please monitor for congestive heart failure as it has been associated with 20% of patients with worsening of congestive heart failure. MTDD
[2020-08-20] MEDS: FIDAXOMICIN 200 MG TAB (DIFICID) PO SCH (08:56)
[2020-08-20] MEDS: APIXABAN 2.5 MG TAB (ELIQUIS) PO SCH (08:56)
[2020-08-20] MEDS: OCUVITE 1 TAB PO SCH (08:57)
[2020-08-20] MEDS: LACTOBACILLUS ACIDOPHILUS CAP (BACID) PO SCH (08:57)
[2020-08-20] MEDS: FLUTICASONE PROP 0.05% NASAL SPRAY 16 GM (FLONASE) NARES SCH (08:57)
[2020-08-20 08:59] VITALS: BP 110/55
[2020-08-20] MEDS: METOPROLOL TART 50 MG TAB PO SCH (08:59)
[2020-08-20] MEDS ORDERED: CHOL4PW PO (09:18)
[2020-08-20] MEDS ORDERED: RISATAB3 PO (09:18)
[2020-08-20] MEDS ORDERED: LOPR1TAB6 PO (09:18)
[2020-08-20] MEDS ORDERED: DIFI200T PO (09:18)
[2020-08-20] MEDS: CHOLESTYRAMINE 4 GM PWD PKT PO SCH (10:21)
--- NOTE | 2020-08-20 11:45 | DS.PDOC ---
Discharge Summary General Date of Admission Aug 05, 2020 at 18:04 Date of Discharge 08/20/2020 Discharge Summary PROCEDURES PERFORMED DURING STAY: [None]. ADMITTING DIAGNOSES / DISCHARGE DIAGNOSES: C.diff associated diarrhea, persistent s/p Shortness of breath s/p Sepsis 2/2 C.diff A. fib; s/p RVR Electrolyte depletion 2/2 diarrhea Systolic CHF DVT prophylaxis COMPLICATIONS/CHIEF COMPLAINT: Left sided weakness HISTORY OF PRESENT ILLNESS: Patient is an 89-year-old female with a PMHx of A. fib (on Eliquis), CHF, Glaucoma , who presents to the hospital with complaints of abdominal pain a ssociated with nausea and diarrhea. Patient was started on antibiotics. One week before admission for sinusitis. After completion of antibiotic course. Patient began to experience abdominal pain, watery diarrhea. Upon arrival to emergency room, patient had a stool sample was consistent with C. difficile colitis and was hypotensive. She was admitted to hospital service for further evaluation and treatment. HOSPITAL COURSE: C.diff associated diarrhea, persistent - Improvement of diarrhea - Hemodynamically stable / Afebrile - s/p Leukocytosis / No lactic acidosis - GI panel 08/05: C. diff - c/w Fidaxomicin (Day #10); s/p Vancomycin PO - Will continue with Fidaxomicin q2days for 10 days - c/w cholestyramine - Will have outpatient Infusion of Zinplava at [facility] [place] [facility] - Infectious disease and gastroenterology on consultation; appreciate their input. s/p Shortness of breath - CXR 08/15: Acute bibasilar atelectasis/infiltrates and small pleural effusions (left greater than right). - s/p Lasix IV - c/w Incentive spirometry s/p Sepsis 2/2 C.diff - s/p Fever / Hypotension - s/p Leukocytosis A. fib; s/p RVR - c/w rate control with Metoprolol at adjusted dose - c/w full anticoagulation with Eliquis Electrolyte depletion 2/2 diarrhea - c/w PO supplementation Chronic Systolic CHF - Currently remains stable - Last echocardiogram was 12/2019, EF was 40-45% - c/w Metoprolol DVT prophylaxis - c/w full anticoagulation with Eliquis DISCHARGE MEDICATIONS: Please see below. ALLERGIES: Please see below. PHYSICAL EXAMINATION ON DISCHARGE: Vitals (See below) General: Patient is sitting up in chair, does not appear to be in any distress, is oriented to person, place and time HEENT: NC, AT CVS: +S1S2 Lungs: Auscultation is free of any rhonchi, crackles/wheezing and appears to be fair bilaterally Abdomen: Abdomen is soft without any appreciable distention or tenderness Extremities: Trace edema at ankles, - Calf tenderness LABORATORY DATA: Please see below. ACTIVITY: [As tolerated]. DISCHARGE PLAN: Follow-up with PCP, ID and GI within the next 7 days Remain compliant with treatment plan and medications Return to the ER if you experience some DISPOSITION: Home with services DISCHARGE CONDITION: [Stable]. TIME SPENT ON DISCHARGE: 35 minutes. Vital Signs/I&Os Vital Signs Date Time Temp Pulse Resp B/P (MAP) Pulse Ox O2 Delivery O2 Flow Rate FiO2 08/20/20 08:59 76 110/55 08/20/20 06:00 96.9 16 93 Room Air I&O- Last 24 Hours up to 6 AM 08/20/20 06:00 Intake Total 1390 ml Output Total 0 ml Balance 1390 ml Laboratory Data Labs 24H Laboratory Tests 2 08/20/20 05:45: Nucleated Red Blood Cells % (auto) 0.0, Anion Gap 5L, Glomerular Filtration Rate > 60.0, Calcium Level 8.6L, Magnesium Level 1.9 CBC/BMP Laboratory Tests 08/20/20 05:45 Discharge Medications Scheduled Apixaban (Eliquis) 2.5 Mg Tablet, 2.5 MG PO BID, (Reported) Bimatoprost (Lumigan) 0.01% 2.5ML Drops, 1 DROP OS QHS, (Reported) Calcium Carbonate (Calcium) 500 Mg Tab.chew, 1,000 MG PO DAILY, (Reported) Cholestyramine (Cholestyramine Packet) 4 Gm Powd.pack, 4 GM PO BID@1000,2200 Fidaxomicin (Dificid) 200 Mg Tablet, 200 MG PO Q2D Take 1 tablet every other day Furosemide (Furosemide) 20 Mg Tablet, 20 MG PO DAILY, (Reported) L.acidoph/L.bulg/B.bif/S.therm (Tatiana-Bid Caplet) 1 Each Tablet, 1 EA PO TID Metoprolol Tartrate (Lopressor) 50 Mg Tablet, 50 MG PO BID Multivitamins (Thera M Plus Tablet) 1 Each Tablet, 2 TAB PO DAILY, (Reported) TAKES AT NOON Potassium Chloride (Potassium Chloride) 20 Meq Tab.er.prt, 20 MEQ PO DAILY, (Reported) Vit A/Vit C/Vit E/Zinc/Copper (Preservision Areds Softgel) 1 Each Capsule, 1 CAP PO DAILY, (Reported) Allergies Coded Allergies: Penicillins (Verified Allergy, Intermediate, hives, 01/08/20) WOODROW STRANGE MD Aug 20, 2020 11:45
== END 2020-08-20 13:35 | disposition home or self-care (01) | DRG 872 ==
LOC: M ED 13:55 → M ED INP 18:04 → ENRESERV 18:42 → M ICU 22:33 → M MSPAV 08-08 16:48 → M PCU 08-08 21:56 → M MSPAV 08-13 17:00
PROVIDERS: ADMIT Internal Medicine; ATTEND Internal Medicine
DX: A41.9 Sepsis, unspecified organism (principal); E87.2 Acidosis; A04.72 Enterocolitis due to Clostridium difficile, not specified as recurrent; I50.22 Chronic systolic (congestive) heart failure; I48.91 Unspecified atrial fibrillation; I50.9 Heart failure, unspecified; E83.42 Hypomagnesemia; H40.9 Unspecified glaucoma; J44.9 Chronic obstructive pulmonary disease, unspecified; E87.6 Hypokalemia; Z66 Do not resuscitate; Z96.641 Presence of right artificial hip joint; Z90.49 Acquired absence of other specified parts of digestive tract; Z87.891 Personal history of nicotine dependence; Z88.0 Allergy status to penicillin; Z79.01 Long term (current) use of anticoagulants; Z79.899 Other long term (current) drug therapy; Z20.828 Contact with and (suspected) exposure to other viral communicable diseases; Z98.41 Cataract extraction status, right eye; Z98.42 Cataract extraction status, left eye

== ENCOUNTER 2020-08-26 15:42 | Outpatient (CLI) | payer MEDICARE ==
[~2020-08-26] VITALS: Ht 154.9 cm; Wt 57.9 kg
[~2020-08-26 15:42] MED LIST changes: +CALC500T68 PO; +CHOL4PW PO; +DIFI200T PO; +ELIQ2.5T PO; +METO1TAB87 PO; +PRESCAP PO; +RISATAB3 PO
[2020-08-26 16:00] VITALS: BP 140/66
[2020-08-26] MEDS ORDERED: BEZLOTOXUMAB 600 MG in NS 100 ML IV ONE (16:00)
[2020-08-26 17:29] VITALS: BP 151/68
== END 2020-08-26 18:00 | disposition home or self-care (01) ==
LOC: M INFU 15:42
PROVIDERS: ATTEND Internal Medicine Infectious Disease
DX: A04.72 Enterocolitis due to Clostridium difficile, not specified as recurrent (principal); Z88.0 Allergy status to penicillin
CPT/HCPCS: 96365; J0565